=== PATIENT | male | born 1965 | race Caucasian/White ===

== ENCOUNTER 2020-01-02 10:28 | Outpatient (REF) | payer OTHER, SELFPAY ==
[2020-01-02 12:18] LABS: Blood Urea Nitrogen 23 mg/dL (9-16); Estimated Glomerular Filt Rate > 60
[2020-01-02 12:43] LABS: PSA,Total (Free>4and<10) 5.71 ng/mL (0.00-4.00)
[2020-01-05 13:16] LABS: Free Prostate Spec Ag 0.3 ng/mL; Percent Free Prostate Spec Ag 6 % (calc) (>25); Prostate Specific Ag Total 5.2 ng/mL (< OR = 4.0)
== END 2020-01-02 10:29 | disposition home or self-care (01) ==
LOC: HO.LAB 10:28
PROVIDERS: PCP Physician Assistant; Visit Provider Urology
DX: C61 Malignant neoplasm of prostate (principal)
CPT/HCPCS: 82565; 84153; 84520

== ENCOUNTER 2020-01-23 13:00 | Outpatient (RCR) | payer OTHER, SELFPAY ==
--- NOTE | 2020-03-01 11:47 | MHC.PT.DC ---
[facility] [place] [facility] [place] [facility] [address] Fatoumata Nunes [address] [phone] F: [phone] F: [phone] F: [phone] F: [phone] Physical Therapy Discharge Report Diagnosis: Adhesive capsulitis of R shoulder Date of Surgery: NA Date of Evaluation: 12/01/19 Date of Discharge: 03/01/20 Treatments to Date: 6 Cancellations to Date: 0 No Shows to Date: 0 Discharge Status: Patient Elected to Stop Discharge Summary: 03/01/20- Pt was suppose to return to therapy after MD follow up on 02/11 however pt did not call back to make any appointments. Pt d/c from therapy. Electronically signed by: Margarita Sifuentes DPT Please sign and return to therapist. Thank you for your referral.
== END 2020-03-01 11:46 | disposition other institution (70) ==
LOC: HO.PT 13:00
PROVIDERS: Visit Provider Orthopaedic Surgery
DX: M75.01 Adhesive capsulitis of right shoulder (principal)
CPT/HCPCS: 97110; 97140

== ENCOUNTER 2020-04-27 10:31 | Outpatient (REF) | payer OTHER, SELFPAY ==
[2020-04-27 14:38] LABS: PSA,Total (Free>4and<10) 9.45 ng/mL (0.00-4.00)
[2020-04-28 11:36] LABS: Free Prostate Spec Ag 0.3 ng/mL; Percent Free Prostate Spec Ag 4 % (calc) (>25); Prostate Specific Ag Total 7.6 ng/mL (< OR = 4.0)
== END 2020-04-27 10:32 | disposition home or self-care (01) ==
LOC: HO.LAB 10:31
PROVIDERS: PCP Physician Assistant; Referring Provider Urology; Visit Provider Psychiatry & Neurology Neurology
DX: R06.83 Snoring (principal); G47.10 Hypersomnia, unspecified; G47.00 Insomnia, unspecified; N40.1 Benign prostatic hyperplasia with lower urinary tract symptoms; N13.8 Other obstructive and reflux uropathy; C61 Malignant neoplasm of prostate; R97.20 Elevated prostate specific antigen [PSA]; I77.1 Stricture of artery; N52.1 Erectile dysfunction due to diseases classified elsewhere; Z91.09 Other allergy status, other than to drugs and biological substances; Z79.899 Other long term (current) drug therapy
CPT/HCPCS: 36415; 84153; 84154

== ENCOUNTER → 2020-05-07 11:39 | Outpatient (BNVA) | payer OTHER, SELFPAY | PROVIDERS: PCP Physician Assistant; Visit Provider Urology ==

== ENCOUNTER 2020-05-13 11:56 | Outpatient (REF) | payer OTHER, SELFPAY ==
[2020-05-13 11:48] VITALS: BMI 25.8
[2020-05-13 11:52] VITALS: BMI 25.8
[2020-05-13 11:54] VITALS: BP 122/84; PULSE 83; RESP 16; TEMP 36.5; O2SAT 97
--- NOTE | 2020-05-13 12:28 | PM.OP ---
Brief Operative Note Date of Service: 05/13/20 Pre-op diagnosis: prostate cancer Post-op diagnosis: same Procedure: TRUS guided - measure - prostate nerve block - 12 core biopsy Surgeon: Pierre Nayak MD Anesthesia: local Estimated blood loss (mL): 0 Pathology: other (12 cores) Condition: stable Disposition: same day
[2020-05-13 12:29] VITALS: BP 132/84; PULSE 83; RESP 16; O2SAT 99
--- NOTE | 2020-05-13 12:29 | W.PM.OPN ---
Operative Note Operative Note Date of Service: 05/13/20 Narrative: Preoperative diagnosis: prostate cancer Postoperative diagnosis: prostate cancer Procedure: 1. transrectal ultrasound measurement of prostate 2. transrectal ultrasound-guided pudendal nerve block 3. transrectal ultrasound-guided prostate biopsy 12 core Surgeon: Dr. Pierre Nayak Anesthetic: Local Indications for procedure: Prostate Cancer Procedure: After informed consent was verified, the patient was brought into the procedure area and lay left-hand side down on the table. Patient identity confirmed. Perioperative antibiotics confirmed. Gel was placed per rectum Ultrasound probe was placed per rectum The prostate was measured in 3 dimensions Total volume equals 30 gm There were no cystic structures and no calcifications noted and the prostate was homogeneous in nature A ultrasound-guided pudendal nerve block was performed using 10 cc of 1% lidocaine. 8 cc was placed at the base and 2 cc of the apex. A 12 core biopsy was performed with 6 cores each side. Two cores were taken at the apex, mid and base. Cores were spaced between lateral and medial. He tolerated the procedure well. Was able to ambulate to bathroom after 5 minutes. Printed instructions regarding antibiotic use and common side effects such as low-grade temperature and bleeding were given.
== END 2020-05-13 11:57 | disposition home or self-care (01) ==
LOC: HO.MS 11:56
PROVIDERS: PCP Physician Assistant; Visit Provider Urology
PROC: (CPT 55700; principal; 2020-05-13 12:00)
DX: C61 Malignant neoplasm of prostate (principal)
CPT/HCPCS: 55700; 76942; 88305; 88344

== ENCOUNTER → 2020-05-21 08:40 | Outpatient (BNVA) | payer OTHER, SELFPAY | PROVIDERS: PCP Physician Assistant; Visit Provider Urology ==

== ENCOUNTER → 2020-05-25 09:05 | Outpatient (REF) | payer OTHER, SELFPAY | LOC: HO.SL 09:05 | PROVIDERS: PCP Physician Assistant; Visit Provider Psychiatry & Neurology Neurology | DX: G47.10 Hypersomnia, unspecified (principal); I10 Essential (primary) hypertension; R06.83 Snoring | CPT/HCPCS: 95806 ==

== ENCOUNTER → 2020-05-27 08:26 | Outpatient (BNVA) | payer SELFPAY | PROVIDERS: PCP Physician Assistant; Visit Provider Internal Medicine | DX: Z02.79 Encounter for issue of other medical certificate (principal) ==

== ENCOUNTER → 2020-06-04 09:23 | Outpatient (BNVA) | payer OTHER, SELFPAY | PROVIDERS: PCP Physician Assistant; Visit Provider Orthopaedic Surgery ==

== ENCOUNTER 2020-08-13 10:13 | Outpatient (REF) | payer OTHER, SELFPAY ==
[2020-08-13 12:08] LABS: PSA,Total (Free>4and<10) 6.82 ng/mL (0.00-4.00)
[2020-08-16 11:47] LABS: Free Prostate Spec Ag 0.3 ng/mL; Percent Free Prostate Spec Ag 5 % (calc) (>25); Prostate Specific Ag Total 6.2 ng/mL (< OR = 4.0)
== END 2020-08-13 10:14 | disposition home or self-care (01) ==
LOC: HO.LAB 10:13
PROVIDERS: PCP Physician Assistant; Visit Provider Urology
DX: Z12.5 Encounter for screening for malignant neoplasm of prostate (principal); C61 Malignant neoplasm of prostate; N13.8 Other obstructive and reflux uropathy; N40.1 Benign prostatic hyperplasia with lower urinary tract symptoms
CPT/HCPCS: 36415; 84153; 84154

== ENCOUNTER → 2020-08-19 08:43 | Outpatient (BNVA) | payer OTHER, SELFPAY | PROVIDERS: PCP Physician Assistant; Visit Provider Urology ==

== ENCOUNTER → 2020-08-24 09:12 | Outpatient (BNVA) | payer OTHER, SELFPAY | PROVIDERS: PCP Physician Assistant; Visit Provider Psychiatry & Neurology Neurology ==

== ENCOUNTER 2020-11-11 05:58 | Outpatient (REF) | payer OTHER, SELFPAY ==
[2020-11-11 09:12] LABS: PSA,Total (Free>4and<10) 6.23 ng/mL (0.00-4.00)
[2020-11-14 10:22] LABS: Free Prostate Spec Ag 0.3 ng/mL; Percent Free Prostate Spec Ag 5 % (calc) (>25); Prostate Specific Ag Total 6.4 ng/mL (< OR = 4.0)
== END 2020-11-11 05:59 | disposition home or self-care (01) ==
LOC: HO.LAB 05:58
PROVIDERS: PCP Physician Assistant; Visit Provider Urology
DX: N40.1 Benign prostatic hyperplasia with lower urinary tract symptoms (principal); N13.8 Other obstructive and reflux uropathy
CPT/HCPCS: 36415; 84153; 84154

== ENCOUNTER → 2020-11-18 08:52 | Outpatient (BNVA) | payer OTHER, SELFPAY | PROVIDERS: PCP Physician Assistant; Visit Provider Urology ==

== ENCOUNTER → 2020-12-10 08:54 | Outpatient (BNVA) | payer OTHER, SELFPAY | PROVIDERS: PCP Physician Assistant; Referring Provider Physician Assistant; Visit Provider Surgery ==

== ENCOUNTER 2021-03-14 08:45 | Outpatient (REF) | payer OTHER, SELFPAY ==
[2021-03-14 10:03] LABS: PSA,Total (Free>4and<10) 6.38 ng/mL (0.00-4.00)
[2021-03-15 13:31] LABS: Free Prostate Spec Ag 0.4 ng/mL; Percent Free Prostate Spec Ag 7 % (calc) (>25); Prostate Specific Ag Total 5.4 ng/mL (< OR = 4.0)
== END 2021-03-14 08:46 | disposition home or self-care (01) ==
LOC: HO.LAB 08:45
PROVIDERS: PCP Physician Assistant; Visit Provider Urology
DX: C61 Malignant neoplasm of prostate (principal)
CPT/HCPCS: 36415; 84153; 84154

== ENCOUNTER → 2021-03-18 09:01 | Outpatient (BNVA) | payer OTHER, SELFPAY | PROVIDERS: PCP Physician Assistant; Visit Provider Urology ==

== ENCOUNTER 2021-03-23 05:58 | Day surgery (SDC) | payer OTHER, SELFPAY ==
[2021-03-17 12:05] VITALS: BMI 25.8
--- NOTE | 2021-03-22 10:07 | HO.ANESPROP2 ---
Documented by User: Cydney White NP 03/22/21 10:09 HPI - Anesthesia Eval Consult details Narrative: 55yo M for Right Hernia Repair Inguinal PMFSH Active Problems Active Problems: All Active Problems (Updated 03/18/21 @ 10:01 by Pierre Nayak MD) Herpes simplex (Acute) Prostate cancer (Acute) JULIETH (obstructive sleep apnea) (Acute) HTN (hypertension) (Acute) Hyperlipidemia (Acute) Snoring (Acute) Hypersomnia (Acute) Insomnia (Acute) Adhesive capsulitis of right shoulder (Acute) Inguinal hernia (Acute) Recurrent tonsillitis (Acute) Recurrent otitis media of both ears (Acute) Pain, dental (Acute) Past Medical History Medical History Anxiety COVID-19 vaccine series completed Elevated cholesterol Elevated PSA Erectile dysfunction due to arterial insufficiency HTN (hypertension) Prostate cancer Sleep apnea Family History Family History Father Prostate cancer Paternal Uncle Prostate cancer Surgical History Surgical History H/O colonoscopy History of esophagogastroduodenoscopy (EGD) History of excision of mass History of hip replacement Hx of prostate biopsy Social History Social History Are you a primary childbirth and infant care teacher to a significant other at home: No Patient Tobacco Use Status: Never used Tobacco Use of substances other than those prescribed or required for medical reasons: No Have you been hit, kicked, punched, or otherwise hurt by someone within the past year? 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 Allergies Allergy/AdvReac Type Severity Reaction Status Date / Time allergy shots Allergy Intermediate rash Uncoded 03/18/21 09:02 SEASONAL ALLERGIES Allergy Mild RUNNY NOSE Uncoded 03/18/21 09:02 Home Medications Medication Instructions Recorded Confirmed Last Taken Type omeprazole 20 mg capsule,delayed 20 mg PO DAILY 12/10/20 03/17/21 Unknown History release multivitamin 1 tab PO DAILY 03/17/21 03/17/21 Unknown History tadalafil 10 mg tablet 10 mg PO DAILY PRN 03/18/21 Unknown History Exam Exam Date and Time: March 22, 2021 1007 Height,Weight and Vital Signs: Height 5 ft 10 in Weight 81.647 kg Assessment and Plan Assessment Anesthesia Assessment: Chart Reviewed Documented by User: Adrian Baugh 03/23/21 09:43 PMFSH Past Medical History Medical History Anxiety COVID-19 vaccine series completed Elevated cholesterol Elevated PSA Erectile dysfunction due to arterial insufficiency HTN (hypertension) Prostate cancer Sleep apnea Family History Family History Father Prostate cancer Paternal Uncle Prostate cancer Family history of problems with anesthesia: No Surgical History Surgical History H/O colonoscopy History of esophagogastroduodenoscopy (EGD) History of excision of mass History of hip replacement Hx of prostate biopsy History of Problems with Anesthesia: Yes (Ponv ) Social History Social History Are you a primary childbirth and infant care teacher to a significant other at home: No Patient Tobacco Use Status: Never used Tobacco Use of substances other than those prescribed or required for medical reasons: No Have you been hit, kicked, punched, or otherwise hurt by someone within the past year? 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 Allergies Allergy/AdvReac Type Severity Reaction Status Date / Time allergy shots Allergy Intermediate rash Uncoded 03/18/21 09:02 SEASONAL ALLERGIES Allergy Mild RUNNY NOSE Uncoded 03/18/21 09:02 Home Medications Medication Instructions Recorded Confirmed Last Taken Type omeprazole 20 mg capsule,delayed 20 mg PO DAILY 12/10/20 03/17/21 Unknown History release multivitamin 1 tab PO DAILY 03/17/21 03/17/21 Unknown History tadalafil 10 mg tablet 10 mg PO DAILY PRN 03/18/21 Unknown History Exam Airway Mallampati Class: I TM Dist: >3cm Neck ROM: Full Loose/Missing/Broken Teeth: Yes (Chipped , bridge , missing ) Heart: rrr Lungs: bl breath sounds Assessment and Plan Final Anesthetic Review Family History of Problems with Anesthesia: No History of Problems with Anesthesia: Yes (Ponv ) NPO: Yes ASA Class: II Final Preanesthetic Review: Meds/Allgs Chart Reviewed and Anes Risks/Benef Reviewed Patient Risk: Intermediate Procedure Risk: Intermediate Anesthetic Plan Anesthetic Plan: GA Disposition: Standard PACU
[2021-03-23] VITALS (8 sets, daily range): BP systolic 120–146; BP diastolic 74–91; PULSE 71–86; RESP 16; TEMP 36.3–36.9; O2SAT 95–99
[2021-03-23] MEDS: Lactated Ringers 1,000 ML 100 ML IVCONT (07:47)
--- NOTE | 2021-03-23 08:29 | P.OP_ITS ---
Operative Note Operative Note Date of Service: 03/23/21 Narrative: Preoperative diagnosis: Right inguinal hernia Postoperative diagnosis: Same Procedure: Repair of right inguinal hernia with mesh Surgeon: Te Lynch MD Supervisor Nut Processing: Salome Lake PA-C Anesthesia: General LMA Indications for procedure: 55-year-old male patient presenting with a mass in the right groin which increases in size with lifting and straining and reduces with light pressure. On examination patient is found to have a reducible indirect right inguinal hernia Operative findings: Indirect right inguinal hernia containing preperitoneal fat as well as a hernia sac Specimen: Lipoma of the cord and hernia sac right groin Estimated blood loss: 5 mL Complications: None Procedure details: Patient was brought to the OR and placed in a supine position. After administering general anesthesia the patient's abdomen was prepped with ChloraPrep and draped in a sterile fashion. A surgical time-out was called and the consent confirmed. Patient received preoperative antibiotics and Venodyne boots were in place. Local anesthesia consisting of 0.5% Sensorcaine was then infiltrated over the right inguinal ligament. Incision was then made with a scalpel carried out through subcutaneous tissue, past Michelle's fascia, and up to the external oblique aponeurosis. Additional local was infiltrated below the external oblique aponeurosis. This was then incised with a scalpel wide with the Metzenbaum scissors. The spermatic cord was then dissected free from the surrounding inguinal canal. This was then retracted using a Jasper drain. The floor of the inguinal canal was found to be intact without direct hernia. A large lipoma was noted within the rheumatic cord. Fibers of the cremasteric muscle were then and the lipoma dissected down to the internal ring. This was then ligated with 3-0 Polysorb suture and divided. This was sent as a specimen labeled lipoma of the cord. A hernia sac was also identified adjacent to the lipoma. This was also dissected down to the internal ring, ligated with a 0 Polysorb suture in a pursestring fashion. The sac was then excised and sent to pathology as hernia sac right groin. A large internal ring was identified. This was then dissected into the preperitoneal space using an open Ray-Anthony sponge. A large PHS mesh was then obtained circular underlay deployed within the preperitoneal space. The overlay was then secured to the pubic tubercle, conjoined tendon, and shelving edge of the inguinal ligament using 0 Polysorb sutures. A slit was made in the mesh and the mesh wrapped around the spermatic cord at the internal ring. This was then secured to the shelving edge of the inguinal ligament using the 0 Polysorb suture. The remaining mesh was placed below the external oblique aponeurosis. The wounds were then irrigated with saline solution and suctioned dry. Wounds were checked for hemostasis. External oblique aponeurosis was then closed using a running 2 0 Polysorb suture. Michelle's fascia and dermis were then reapproximated using interrupted 3-0 Polysorb sutures. Skin was closed using a running subcuticular 4-0 Polysorb suture. Steri-Strips 4 x 4 gauze and Tegaderm were then applied. The patient tolerated the procedure well. Sponge, instrument, and needle counts were reported as correct. Patient was transferred to PACU in stable condition.
--- NOTE | 2021-03-23 08:35 | MHC.SHP ---
Pre-Procedural Eval Section A Date of Service: 03/23/21 The patient is an INPATIENT: No Changes since office visit: Yes Patient answered all questions; No Cold of Flu in the past 2 weeks, No New Medical Problems and No Changes in Medication The History & Physical has been completed within 30 days and I have reviewed it.: Yes Section B Chief Complaint: Right Inguinal hernia Allergies: Allergies Allergy/AdvReac Type Severity Reaction Status Date / Time allergy shots Allergy Intermediate rash Uncoded 03/18/21 09:02 SEASONAL ALLERGIES Allergy Mild RUNNY NOSE Uncoded 03/18/21 09:02 Plan Diagnosis/Plan: Unchanged I have reviewed the history and physical and performed a pertinent physical examination on my patient. No changes have occurred unless specified.
[2021-03-23] MEDS: oxyCODONE HCl Immed Release 5 MG TABLET PO (09:00)
[2021-03-23] MEDS: Acetaminophen 325 MG TABLET 650 MG PO (09:01)
== END 2021-03-23 10:00 | disposition home or self-care (01) ==
PROVIDERS: PCP Physician Assistant; Visit Provider Surgery
PROC: (CPT 49505; principal; 2021-03-23 07:30)
DX: K40.90 Unilateral inguinal hernia, without obstruction or gangrene, not specified as recurrent (principal); D17.6 Benign lipomatous neoplasm of spermatic cord; C61 Malignant neoplasm of prostate; I10 Essential (primary) hypertension; G47.33 Obstructive sleep apnea (adult) (pediatric); E78.5 Hyperlipidemia, unspecified; Z79.899 Other long term (current) drug therapy
CPT/HCPCS: 49505; 88302; 88304; C1781; J0690; J1100; J1885; J2250; J2405; J3010

== ENCOUNTER → 2021-03-31 15:30 | Outpatient (BNVA) | payer OTHER, SELFPAY | PROVIDERS: PCP Physician Assistant; Visit Provider Surgery ==

== ENCOUNTER → 2021-05-05 15:01 | Outpatient (BNVA) | payer OTHER, SELFPAY | PROVIDERS: PCP Physician Assistant; Visit Provider Surgery ==

== ENCOUNTER 2021-06-17 07:10 | Outpatient (REF) | payer OTHER, SELFPAY ==
--- NOTE | ~2021-06-17 | XR_ITS ---
EXAMINATION: XR SHOULDER, RIGHT CLINICAL INFORMATION: Pain COMPARISON: Previous x-ray October 2019 TECHNIQUE: Three views of the right shoulder. FINDINGS: Bone alignment is normal. No fracture or dislocation is seen. There is mild arthritis at the acromioclavicular and glenohumeral joints similar to previous exam. Soft tissues are unremarkable. XR/XR shoulder RT min 2V IMPRESSION: Mild arthritis.
== END 2021-06-17 07:11 | disposition home or self-care (01) ==
LOC: HO.HOSX 07:10
PROVIDERS: Visit Provider Physician Assistant
DX: M75.01 Adhesive capsulitis of right shoulder (principal)
CPT/HCPCS: 20610; 73030; J1040

== ENCOUNTER 2021-06-24 07:56 | Outpatient (REF) | payer OTHER, SELFPAY ==
--- NOTE | ~2021-06-24 | MR_ITS ---
EXAMINATION: MR SHOULDER WITHOUT CONTRAST, RIGHT CLINICAL INFORMATION: Pain, decreased range of motion, adhesive capsulitis COMPARISON: None TECHNIQUE: MRI of the shoulder without contrast was performed on a high-field scanner. FINDINGS: ROTATOR CUFF: Mild supraspinatus tendinosis. No focal tear is seen. Infraspinatus, teres minor is intact. Mild subscapularis tendinosis. No muscle atrophy or fatty infiltration. BICEPS: Intact CORACOACROMIAL ARCH: The undersurface of the acromion is curved with no subacromial spur. Mild acromioclavicular arthritis. LABRUM/CAPSULE: T2 signal changes in the superior labrum suggest degeneration, with possible mild free edge fraying posteriorly. Focal T2 bright signal at the base of the posteroinferior labrum, from possible small tear. No discrete tear is otherwise seen. Mild thickening of the inferior capsule, which could be related to lack of distention versus capsulitis. GLENOHUMERAL JOINT/MARROW: Mild glenohumeral joint arthritis. There is marginal osteophytes, foci of cartilage thinning and irregularity. Small effusion. Possible mild synovitis.. MR/MR shoulder RT wo con IMPRESSION: 1. Mild supraspinatus and subscapularis tendinosis. No focal rotator cuff tear is seen. 2. Superior labral degeneration with possible mild fraying posteriorly. Question small tear in the posteroinferior labrum. 3. Mild glenohumeral joint arthritis. Small effusion. 4. Mild acromioclavicular arthritis. 5. Inferior capsule findings could be related to lack of distention versus capsulitis.
== END 2021-06-24 07:57 | disposition home or self-care (01) ==
LOC: HO.MRI 07:56
PROVIDERS: Visit Provider Physician Assistant
DX: M75.01 Adhesive capsulitis of right shoulder (principal); M75.101 Unspecified rotator cuff tear or rupture of right shoulder, not specified as traumatic
CPT/HCPCS: 73221

== ENCOUNTER 2021-07-12 06:01 | Outpatient (REF) | payer OTHER, SELFPAY ==
[2021-07-12 08:40] LABS: PSA,Total (Free>4and<10) 6.28 ng/mL (0.00-4.00)
[2021-07-14 11:46] LABS: Free Prostate Spec Ag 0.4 ng/mL; Percent Free Prostate Spec Ag 6 % (calc) (>25); Prostate Specific Ag Total 6.3 ng/mL (< OR = 4.0)
== END 2021-07-12 06:02 | disposition home or self-care (01) ==
LOC: HO.LAB 06:01
PROVIDERS: PCP Physician Assistant; Visit Provider Urology
DX: Z12.5 Encounter for screening for malignant neoplasm of prostate (principal); C61 Malignant neoplasm of prostate; N13.8 Other obstructive and reflux uropathy; N40.1 Benign prostatic hyperplasia with lower urinary tract symptoms
CPT/HCPCS: 36415; 84153; 84154

== ENCOUNTER → 2021-07-15 09:47 | Outpatient (BNVA) | payer OTHER, SELFPAY | PROVIDERS: PCP Physician Assistant; Visit Provider Urology | DX: Z13.89 Encounter for screening for other disorder (principal) ==

== ENCOUNTER → 2021-07-22 09:40 | Outpatient (BNVA) | payer OTHER, SELFPAY | PROVIDERS: PCP Physician Assistant; Visit Provider Physician Assistant | DX: M75.01 Adhesive capsulitis of right shoulder (principal) ==

== ENCOUNTER 2022-03-09 10:01 | Outpatient (REF) | payer OTHER, SELFPAY ==
[2022-03-09 11:04] LABS: Blood Urea Nitrogen 18 mg/dL (9-16); Estimated Glomerular Filt Rate > 60
[2022-03-09 11:29] LABS: PSA,Total (Free>4and<10) 6.31 ng/mL (0.00-4.00)
[2022-03-10 11:24] LABS: Free Prostate Spec Ag 0.3 ng/mL; Percent Free Prostate Spec Ag 6 % (calc) (>25); Prostate Specific Ag Total 5.3 ng/mL (< OR = 4.0)
== END 2022-03-09 10:02 | disposition home or self-care (01) ==
LOC: HO.LAB 10:01
PROVIDERS: PCP Physician Assistant; Visit Provider Urology
DX: Z12.5 Encounter for screening for malignant neoplasm of prostate (principal); C61 Malignant neoplasm of prostate
CPT/HCPCS: 36415; 82565; 84153; 84154; 84520

== ENCOUNTER → 2022-03-15 09:29 | Outpatient (BNVA) | payer OTHER, SELFPAY | PROVIDERS: PCP Physician Assistant; Visit Provider Urology | DX: Z13.89 Encounter for screening for other disorder (principal) ==

== ENCOUNTER → 2022-05-26 11:12 | Outpatient (BNVA) | payer SELFPAY | PROVIDERS: PCP Physician Assistant; Visit Provider Internal Medicine | DX: Z02.79 Encounter for issue of other medical certificate (principal) ==

== ENCOUNTER 2022-07-07 05:56 | Outpatient (REF) | payer OTHER, SELFPAY ==
[2022-07-07 08:19] LABS: PSA,Total (Free>4and<10) 4.91 ng/mL (0.00-4.00)
[2022-07-10 12:04] LABS: Free Prostate Spec Ag 0.3 ng/mL; Percent Free Prostate Spec Ag 7 % (calc) (>25); Prostate Specific Ag Total 4.5 ng/mL (< OR = 4.0)
== END 2022-07-07 05:57 | disposition home or self-care (01) ==
LOC: HO.LAB 05:56
PROVIDERS: PCP Physician Assistant; Visit Provider Urology
DX: Z12.5 Encounter for screening for malignant neoplasm of prostate (principal); C61 Malignant neoplasm of prostate
CPT/HCPCS: 36415; 84153; 84154

== ENCOUNTER → 2022-07-13 09:42 | Outpatient (BNVA) | payer OTHER, SELFPAY | PROVIDERS: PCP Physician Assistant; Visit Provider Urology ==

== ENCOUNTER 2022-08-07 06:06 | Outpatient (REF) | payer OTHER, SELFPAY ==
[2022-08-07 07:31] LABS: Hematocrit 42.6 % (42.0-52.0); Hemoglobin 14.4 g/dl (14.0-18.0); Mean Corpuscular HGB Conc 33.8 g/dl (31.0-36.0); Mean Corpuscular Hemoglobin 28.7 pg (27.0-33.0); Mean Platelet Volume 9.5 fL (9.4-12.4); Platelet Count 203 X10*3/uL (160-400); Red Blood Count 5.01 X10*6/uL (4.60-5.80); Red Cell Distribution Width 12.1 % (11.0-16.0); White Blood Count 5.2 X10*3/uL (4.8-10.8)
[2022-08-07 08:13] LABS: Alanine Aminotransferase 34 U/L (0-40); Albumin Level 4.1 g/dL (3.5-5.0); Alkaline Phosphatase 65 U/L (39-117); Anion Gap 13 (12-20); Aspartate Amino Transferase 25 U/L (5-37); Bilirubin Total 0.5 mg/dL (0.0-1.0); Blood Urea Nitrogen 29 mg/dL (9-16); Calcium 8.8 mg/dL (8.4-10.2); Carbon Dioxide 24 mmol/L (22-29); Chloride 108 mmol/L (96-108); Cholesterol 259 mg/dL; Estimated Glomerular Filt Rate > 60; Glucose Fasting 100 mg/dL (60-99); HDL Cholesterol 43 mg/dL; LDL Cholesterol Calculated 149 mg/dl; Sodium 141 mmol/L (135-145); Total Protein 7.2 g/dL (6.5-8.0); Triglycerides 339 mg/dL
[2022-08-07 09:11] LABS: Creatinine Urine 213.65 mg/dL; Microalbum/Creatinine Ratio Ur 4.6 ug/mg cr
== END 2022-08-07 06:07 | disposition home or self-care (01) ==
LOC: HO.LAB 06:06
PROVIDERS: PCP Physician Assistant; Visit Provider Physician Assistant
DX: I10 Essential (primary) hypertension (principal)
CPT/HCPCS: 36415; 80053; 80061; 82043; 85027

== ENCOUNTER 2022-11-14 06:00 | Outpatient (REF) | payer OTHER, SELFPAY | END 2022-11-14 06:01 | disposition home or self-care (01) | LOC: HO.LAB 06:00 | PROVIDERS: PCP Physician Assistant; Visit Provider Urology | DX: Z12.5 Encounter for screening for malignant neoplasm of prostate (principal); C61 Malignant neoplasm of prostate | CPT/HCPCS: 36415; 84153 ==

== ENCOUNTER 2022-11-16 09:37 | Outpatient (AMB) | payer OTHER, SELFPAY ==
--- NOTE | 2022-11-16 09:38 | MHC.OFFVIS ---
Intake Intake Visit Reasons: 4m/PSA(set) Intake Note: Patient is present for Telephone Urology Med: finasteride, tadalafil, sildenafil Antibiotic Allergy: none Blood Thinner: aspirin Pharmacy: [facility] Allergies allergy shots Allergy (Intermediate, Uncoded 11/16/22 09:38) rash SEASONAL ALLERGIES Allergy (Mild, Uncoded 11/16/22 09:38) RUNNY NOSE Medication List - Last Reconciled 11/16/22 by Pierre Nayak MD acetaminophen ER 650 mg PO Q12H 14 days finasteride 5 mg PO DAILY 90 days losartan 50 mg PO DAILY meloxicam 15 mg PO DAILY 30 days multivitamin 1 tab PO DAILY omeprazole 20 mg PO DAILY sertraline 50 mg PO DAILY sildenafil 100 mg PO DAILY PRN 30 days sodium fluoride-pot nitrate 1.1-5 % PO tadalafil 10 mg PO DAILY PRN 30 days valacyclovir 500 mg PO Q12H 7 days HPI HPI Comments History of Present Illness Details Norberto is a pleasant male. He is a patient of Dr. Winchester. He is seen for the following urologic conditions - prostate cancer Telemedicine Evaluation 15 min Consultation [facility] Scotty Video attempted Continues with PSA check every 4 months Remains on finasteride PSA with low free percentage Prior MRI stable Came off finasteride for 4 months. PSA jumped to 13.3 Recommend repeat targeted biopsy Prostate cancer: November 2018 [place] 3 + 3 3 cores, repeat May 2020 [place] 3 + 3 Prostate cancer was diagnosed November [address] Dr Nayak . Diagnosis was reached by needle biopsy, for elevated PSA, PSA at diagnosis 5.9, size at TRUS 35gm. Last biopsy May 2020 Three cores positive none greater than 50% Continue active surveillance Initial biopsy November 201806/14 cores All Gl 3+3 5%,5%,10%,20% - . TNM Classification of Malignant Tumours (TNM) T1c. The D'Aysha (NCCN) risk category is Low Risk (PSA< 10, Gl < 7, T1c) - Group 1 Repeat biopsy May 2020 Histologic type: Adenocarcinoma, acinar type Histologic grade: - [place] score: 3+3=6 Tumor quantitation: Number cores positive: 3 - RBL 5%, RBM 10%, RAL 40% - Total number of cores: 12 [facility] [employer] performed - 05/23 - Polaris risk score 4.5 - disease specific mortality 10 year 2.9% - Active surveillance recommended. Initial therapy included Primary treatment - Deferred Therapy (active surveillance) 11/21 Recent labs included 03/24 3.0 08/22 8.0 not on finasteride 09/21 5.1, 12/22 5.7, 04/25 9.5, 08/23 6.8, 11/23 6.4, 03/26 5.4, 07/24 6.3 finasteride every day, 03/27 5.3 6%, 07/25 4.5 7% Imaging - 12/22 MRI at [facility]. Right mid posterior lateral transition zone. PiRADs 3. MICK negative 9mm - 10/24 MRI left lateral 6 mm PI-RADS 3 Treatment plan continue surveillance [facility] Medical History Anxiety COVID-19 vaccine series completed Prostate cancer Sleep apnea Elevated cholesterol HTN (hypertension) Inguinal hernia Elevated PSA Erectile dysfunction due to arterial insufficiency Herpes simplex Surgical History Hx of prostate biopsy History of esophagogastroduodenoscopy (EGD) H/O colonoscopy History of excision of mass History of hip replacement Family History Father Prostate cancer Heart attack, Onset Age: 65 Paternal Uncle Prostate cancer Social History Housing: House Are you a primary healthcare liaison to a significant other at home: No Alcohol intake: current Alcohol intake frequency: a few times a month Alcohol type: hard liquor Patient Tobacco Use Status: Never used Tobacco e-Cigarette/Vaping Use: Never Used Second Hand Smoke Exposure: No service: No Current occupational status: employed 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 Current occupational exposures/hazards: No Cognitive needs: No Hearing needs: No Vision needs: No Review of Systems Const All systems reviewed & are unremarkable except as noted in HPI and below Reports no additional complaints Resp Reports no additional complaints GI Reports no additional complaints Reports as per HPI Musc Reports no additional complaints Physical Exam Telemedicine evaluation Appropriate responses Regular breathing rate and rhythm HEENT Head: Yes normal to inspection Ears: hearing grossly normal bilaterally Eyes General: appearance normal, both eyes and all related structures Neck Neck: Yes normal visual inspection Chest Chest palpation & inspection: normal inspection of the chest Resp Effort & Inspection: normal respiratory effort and able to speak in complete sentences Assessment & Plan Assessment & Plan (1) Prostate cancer: Comment: November 2018 [place] 3 + 3 low-grade, low volume disease Active surveillance repeat biopsy 04/26 Code(s): C61 - Malignant neoplasm of prostate Plan Risks and benefits regarding trans rectal ultrasound with prostate biopsy were discussed. Options of continued surveillance, no treatment and biopsy were offered. The risks include but are not limited to, urinary tract infection, sepsis, difficulty urinating, bleeding into the rectum or bladder that requires intervention and transfusion,and failure to diagnose prostate cancer. The patient understands the options and the risks involved. They wish to proceed. Printed information was provided to ensure he remains off anticoagulation for the appropriate length of time. He may require cardiology or PCP clearance. An antibiotic will be administered prior to, and following the procedure Patient Instructions: Imaging studies, laboratory and physical exam results were discussed and reviewed in detail. No major barriers to patient understanding were identified. An opportunity to ask questions regarding the treatment plan was provided. All questions were answered. The patient expressed understanding and agreement with the above treatment plan. The patient is aware they should contact our office by phone for worsening of their current condition or the appearance of new urologic symptoms. Compliance is encouraged with any medications and followup testing that is ordered. It is a privilege to participate in the urologic care of your patient. If you have any questions or concerns regarding treatment for the above conditions, or other urologic issues, please do not hesitate to contact me. The office telephone contact is [phone]. This note is constructed using voice recognition software. While every effort has been made to ensure accuracy senior medical transcriptionist errors may have been included. Yours sincerely, Dr Pierre Nayak MD, [facility] - Urology Providers of Expert, Compassionate Care for the Genitourinary System Telehealth Telehealth Location of provider rendering services: practice address Location of patient: address on file Patient Identification confirmed using: Name, : Yes Telehealth method: video Patient verbally consented to treatment: Yes Patient verbally consented to billing insurance company: Yes Patient informed of any privacy concerns related to visit: Yes Coding Level of Care Code Tele Est Pt Level 4 (11259) Diagnoses Prostate cancer C61
== END 2022-11-16 10:13 | disposition home or self-care (01) ==
LOC: HO.HUSH 09:37
PROVIDERS: PCP Physician Assistant; Visit Provider Urology
DX: C61 Malignant neoplasm of prostate (principal)
CPT/HCPCS: 99214

== ENCOUNTER → 2022-11-16 09:37 | Outpatient (BNVA) | payer OTHER, SELFPAY | PROVIDERS: PCP Physician Assistant; Visit Provider Urology ==

== ENCOUNTER 2022-12-08 08:56 | Outpatient (AMB) | payer OTHER, SELFPAY ==
[2022-12-08 08:57] VITALS: BP 136/99; PULSE 86; O2SAT 97; BMI 27.3
--- NOTE | 2022-12-08 08:57 | MHC.PC.OV ---
Vital Signs 12/08/22 08:57 Height 5 ft 10 in Weight 190 lb BMI 27.3 BP 136/99 H Blood Pressure Location Lt brachial Position Sitting Pulse 86 Pulse Source Pulse Oximeter Pulse Oximetry (%) 97 Oxygen Delivery Method Room Air Intake Visit Reasons: Pre-Op Targeted prostate biopsy 12/18/22 Cytologist Required: No Port Purser: Not Required per policy Accompanied by: Self / Same As Patient Allergies allergy shots Allergy (Intermediate, Uncoded 12/08/22 08:58) rash SEASONAL ALLERGIES Allergy (Mild, Uncoded 12/08/22 08:58) RUNNY NOSE Medication List - Last Reconciled 12/08/22 by Pascual Aguilar MD acetaminophen ER 650 mg PO Q12H 14 days finasteride 5 mg PO DAILY 90 days losartan 50 mg PO DAILY meloxicam 15 mg PO DAILY 30 days multivitamin 1 tab PO DAILY omeprazole 20 mg PO DAILY sertraline 50 mg PO DAILY sildenafil 100 mg PO DAILY PRN 30 days sodium fluoride-pot nitrate 1.1-5 % PO tadalafil 10 mg PO DAILY PRN 30 days valacyclovir 500 mg PO Q12H 7 days Tobacco use date assessed: 08/10/22 Dental Screening Dental Screen Date: 12/08/22 Did you have a dental visit in the last 12 months?: Yes Did you have a dental problem in the last 6 months where you did not have access to dental care?: No Was dental information given to patient?: Patient has dentist HPI Pre-Op Targeted prostate biopsy 12/18/22 HPI Details having a prostate biopsy; has controlled HTN and depression; no history of cad PFSH Medical History Anxiety COVID-19 vaccine series completed Prostate cancer Sleep apnea Elevated cholesterol HTN (hypertension) Inguinal hernia Elevated PSA Erectile dysfunction due to arterial insufficiency Herpes simplex Surgical History Hx of prostate biopsy History of esophagogastroduodenoscopy (EGD) H/O colonoscopy History of excision of mass History of hip replacement Family History Father Prostate cancer Heart attack, Onset Age: 65 Paternal Uncle Prostate cancer Social History Housing: House Are you a primary daycare provider to a significant other at home: No Alcohol intake: current Alcohol intake frequency: a few times a month Alcohol type: hard liquor Patient Tobacco Use Status: Never used Tobacco e-Cigarette/Vaping Use: Never Used Second Hand Smoke Exposure: No service: No Current occupational status: employed 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 1. Little interest or pleasure in doing things: not at all 2. Feeling down, depressed, or hopeless: not at all 3. Trouble falling or staying asleep, or sleeping too much: not at all 4. Feeling tired or having little energy: not at all 5. Poor appetite or overeating: not at all 6. Feeling bad about yourself - or that you are a failure or have let yourself or your family down: not at all 7. Trouble concentrating on things, such as reading the newspaper or watching television: not at all 8. Moving or speaking so slowly that other people could have noticed. Or the opposite - being so fidgety or restless that you have been moving around a lot more than usual: not at all 9. Thoughts that you would be better off or of hurting yourself in some way: not at all Total score: 0 29254 - PHQ-9 Billing: Yes Source: Developed by Drs. Junior Breen, Kisha Valverde, Herbie Vela and colleagues, with an educational deloris from [employer]. Thrive Questionnaire Date Thrive assessed: 08/10/22 AUDIT C Alcohol Use Questionnaire (AUDIT-C) 1. How often do you have a drink containing alcohol?: 2-3 times a week 2. How many drinks containing alcohol do you have on a typical day when you are drinking?: 3 or 4 3. How often do you have six or more drinks on one occasion?: Never Total Score: 4 SABAS-7 AMB Questionnaire SABAS-7 Date SABAS - 7 assessed: 08/10/22 (Pt is on anti-anxirty medication ) Source: Developed by Drs. Junior Breen, Kisha Valverde, Herbie Vela and colleagues, with an educational deloris from [employer]. Review of Systems Const Denies chills, Denies fatigue, Denies headache(s) and Denies weight loss Eyes Denies change in vision, Denies diplopia and Denies eye pain ENT Denies vertigo, Denies dizziness, Denies headache(s) and Denies nasal discharge Card Denies chest pain, Denies rapid heart rate and Denies dyspnea on exertion Resp Denies chest congestion, Denies cough, Denies pain with cough and Denies dyspnea on exertion GI Denies abdominal pain, Denies hematochezia and Denies change in bowel habits Musc Denies myalgias, Denies arthralgias and Denies joint swelling Skin/Breast Denies lesions and Denies unusual bruising Neuro Denies vertigo, Denies dizziness, Denies headache(s) and Denies focal weakness Endo Denies fatigue Physical exam (Primary Care) Vital Signs: Last Vital Signs Pulse 86 12/08/22 08:57 BP 136/99 H 12/08/22 08:57 Pulse Ox 97 12/08/22 08:57 Oxygen Delivery Method Room Air 12/08/22 08:57 BMI result Body Mass Index 27.3 Tobacco/Smoking Status: Tobacco use Status Tobacco use date assessed 08/10/22 12/08/22 08:58 Patient Tobacco Use Status Never used Tobacco 12/08/22 08:58 e-Cigarette/Vaping Use Never Used 12/08/22 08:58 PHQ-9: PHQ-9 Score PHQ-9: Total score 0 12/08/22 09:02 Thrive Assessment: Date of Thrive Assessment Date Thrive assessed 08/10/22 12/08/22 08:58 Const General: cooperative, healthy appearing and no acute distress Orientation/consciousness: oriented to person, oriented to place and oriented to time [facility] Head: Yes normal to inspection, Yes normocephalic and Yes atraumatic Mouth: Normal oral and palatal mucosa present and tongue normal Throat: Yes posterior oropharynx normal and Yes uvula midline Eyes General: appearance normal, both eyes and all related structures Neck Neck: Yes normal visual inspection, Yes full ROM and Yes no lymphadenopathy Thyroid: Thyroid normal Carotids: normal carotid upstroke Chest Chest palpation & inspection: normal inspection of the chest Resp Effort & Inspection: normal respiratory effort and able to speak in complete sentences Auscultation: clear to auscultation bilaterally Cardio Jugular venous distension: no JVD Palpation: normal PMI Rate: regular rate Rhythm: regular rhythm Heart sounds: S1 normal heart sound present and S2 normal heart sound present GI Inspection: Yes normal to inspection Palpation (GI): Soft to palpation and No hepatosplenomegaly present Auscultation: normal bowel sounds General: Yes no CVA tenderness Back/Spine/Pelvis Back: no CVA tenderness Skin General skin exam: no rashes or lesions noted Neuro General: oriented to person, oriented to place and oriented to time Extrem General: Yes normal to inspection and Yes full ROM Assessment and Plan Assessment & Plan (1) Preop exam for internal medicine: Code(s): Z01.818 - Encounter for other preprocedural examination Plan: low risk fro cardiovascular complications; cleared for surgery (2) HTN (hypertension): Code(s): I10 - Essential (primary) hypertension Qualifiers: Hypertension type: primary hypertension Qualified Code(s): I10 - Essential (primary) hypertension Plan: stable;same rx (3) JULIETH (obstructive sleep apnea): Code(s): G47.33 - Obstructive sleep apnea (adult) (pediatric) Plan: stable; same rx (4) Depression: Code(s): F32.A - Depression, unspecified Plan: stable; same rx Coding Level of Care Code Est Pt Level 4 (30355) Diagnoses Preop exam for internal medicine Z01.818 Primary hypertension I10 Hypertension type: primary hypertension JULIETH (obstructive sleep apnea) G47.33 Depression F32.A
== END 2022-12-08 09:57 | disposition home or self-care (01) ==
PROVIDERS: PCP Physician Assistant; Visit Provider Internal Medicine
DX: Z01.818 Encounter for other preprocedural examination (principal); I10 Essential (primary) hypertension; G47.33 Obstructive sleep apnea (adult) (pediatric); F32.A Depression, unspecified
CPT/HCPCS: 99214

== ENCOUNTER 2022-12-18 10:44 | Day surgery (SDC) | payer OTHER, SELFPAY ==
[2022-12-14 08:41] VITALS: BMI 27.3
--- NOTE | 2022-12-14 12:18 | HO.ANESPROP2 ---
Documented by User: Cydney White NP 12/14/22 12:19 HPI - Anesthesia Eval Consult details Narrative: 57yo M for Targeted Prostate Needle Biopsy Medically cleared PMFSH Active Problems Active Problems: All Active Problems (Updated 12/08/22 @ 12:45 by Pascual Aguilar MD) Depression (Acute) Preop exam for internal medicine (Acute) Annual physical exam (Acute) Lumbar spine pain (Acute) Prostate cancer (Acute) JULIETH (obstructive sleep apnea) (Acute) HTN (hypertension) (Acute) Hyperlipidemia (Acute) Snoring (Acute) Insomnia (Acute) Adhesive capsulitis of right shoulder (Acute) Past Medical History Medical History Anxiety COVID-19 vaccine series completed Prostate cancer Sleep apnea Elevated cholesterol HTN (hypertension) Inguinal hernia Elevated PSA Erectile dysfunction due to arterial insufficiency Herpes simplex Family History Family History Father Prostate cancer Heart attack, Onset Age: 65 Paternal Uncle Prostate cancer Family history of problems with anesthesia: No Surgical History Surgical History History of right inguinal hernia repair Hx of prostate biopsy History of esophagogastroduodenoscopy (EGD) H/O colonoscopy History of excision of mass History of hip replacement History of Problems with Anesthesia: Yes (Ponv ) Social History Social History Housing: House Are you a primary career resource specialist to a significant other at home: No Alcohol intake: current Alcohol intake frequency: a few times a month Alcohol type: hard liquor Patient Tobacco Use Status: Never used Tobacco e-Cigarette/Vaping Use: Never Used Second Hand Smoke Exposure: No Use of substances other than those prescribed or required for medical reasons: No Are you DNR?: No Advance Directives: No Advance Directives Information Provided: Yes service: No Current occupational status: employed 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 Current occupational exposures/hazards: No Cognitive needs: No Hearing needs: No Vision needs: No Meds Allergies Allergy/AdvReac Type Severity Reaction Status Date / Time allergy shots Allergy Intermediate rash Uncoded 12/08/22 08:58 SEASONAL ALLERGIES Allergy Mild RUNNY NOSE Uncoded 12/08/22 08:58 Home Medications Medication Instructions Recorded Confirmed Last Taken Type omeprazole 20 mg capsule,delayed 20 mg PO DAILY 12/10/20 12/18/22 12/18/22 History release multivitamin 1 tab PO DAILY 03/17/21 12/08/22 Unknown History sodium fluoride 1.1 %-potassium PO 03/15/22 12/08/22 Unknown History nitrate 5 % dental paste Exam Exam Date and Time: December 14, 2022 1218 Height,Weight and Vital Signs: Height 5 ft 10 in Weight 86.183 kg Pertinent Lab Results Pertinent Lab Results: Laboratory Tests 08/07/22 06:15 WBC 5.2 Hgb 14.4 Hct 42.6 Plt Count 203 Sodium 141 Potassium 4.0 Chloride 108 Carbon Dioxide 24 BUN 29 H Creatinine 0.87 Assessment and Plan Assessment Anesthesia Assessment: Chart Reviewed Final Anesthetic Review Family History of Problems with Anesthesia: No History of Problems with Anesthesia: Yes (Ponv ) Documented by User: Rena Bermudez MD 12/18/22 12:25 [facility] Past Medical History Medical History Anxiety COVID-19 vaccine series completed Prostate cancer Sleep apnea Elevated cholesterol HTN (hypertension) Inguinal hernia Elevated PSA Erectile dysfunction due to arterial insufficiency Herpes simplex Family History Family History Father Prostate cancer Heart attack, Onset Age: 65 Paternal Uncle Prostate cancer Surgical History Surgical History History of right inguinal hernia repair Hx of prostate biopsy History of esophagogastroduodenoscopy (EGD) H/O colonoscopy History of excision of mass History of hip replacement Social History Social History Housing: House Are you a primary career resource specialist to a significant other at home: No Alcohol intake: current Alcohol intake frequency: a few times a month Alcohol type: hard liquor Patient Tobacco Use Status: Never used Tobacco e-Cigarette/Vaping Use: Never Used Second Hand Smoke Exposure: No Use of substances other than those prescribed or required for medical reasons: No Are you DNR?: No Advance Directives: No Advance Directives Information Provided: Yes service: No Current occupational status: employed 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 Current occupational exposures/hazards: No Cognitive needs: No Hearing needs: No Vision needs: No Meds Allergies Allergy/AdvReac Type Severity Reaction Status Date / Time allergy shots Allergy Intermediate rash Uncoded 12/08/22 08:58 SEASONAL ALLERGIES Allergy Mild RUNNY NOSE Uncoded 12/08/22 08:58 Home Medications Medication Instructions Recorded Confirmed Last Taken Type omeprazole 20 mg capsule,delayed 20 mg PO DAILY 12/10/20 12/18/22 12/18/22 History release multivitamin 1 tab PO DAILY 03/17/21 12/08/22 Unknown History sodium fluoride 1.1 %-potassium PO 03/15/22 12/08/22 Unknown History nitrate 5 % dental paste Exam Airway Mallampati Class: II TM Dist: >3cm Neck ROM: Full Heart: rrr Lungs: cta Assessment and Plan Assessment Anesthesia Assessment: Anesthesia Plan Discussed Final Anesthetic Review NPO: Yes ASA Class: III Final Preanesthetic Review: No Changes in Pt Med Stat, Meds/Allgs Chart Reviewed, Consent Obtained/Reviewed and Anes Risks/Benef Reviewed Patient Risk: Low Procedure Risk: Low Anesthetic Plan Anesthetic Plan: GA Disposition: Standard PACU
[2022-12-18 11:00] VITALS: BP 136/89; PULSE 74; RESP 16; TEMP 36.7; O2SAT 98
[2022-12-18] MEDS: Acetaminophen 325 MG TABLET 975 MG PO (11:09)
[2022-12-18] MEDS: levoFLOXacin 500 MG TABLET PO (11:09)
[2022-12-18] MEDS: Lactated Ringers 1,000 ML 100 ML IVCONT (11:15)
--- NOTE | 2022-12-18 11:28 | MHC.SHP ---
Pre-Procedural Eval Section A Date of Service: 12/18/22 The patient is an INPATIENT: No Changes since office visit: No Cold of Flu in the past 2 weeks, No New Medical Problems, No Changes in Medication and No Patient answered all questions The History & Physical has been completed within 30 days and I have reviewed it.: Yes Section B Chief Complaint: Elevated prostate specific antigen [PSA] Details of Present Illness: prostate cancer Relevant Family History (Specify if Yes): No Relevant Social History: None Present Medications: see Short Stay Collaborative assessment Medical History: No relevant PMH History of Previous Operations: Relevant previous surgery/procedure and date(s) Allergies: Allergies Allergy/AdvReac Type Severity Reaction Status Date / Time allergy shots Allergy Intermediate rash Uncoded 12/08/22 08:58 SEASONAL ALLERGIES Allergy Mild RUNNY NOSE Uncoded 12/08/22 08:58 Review of Systems Sugical H&P ROS: Negative: Constitution, Cardiovascular, Respiratory, Neurological, Psychiatric, Hem-Onc, Allergic/Immunologic, Gastrointestinal, Genitourinary, Musculoskeletal, Integumentary, Endocrine and Eyes/Ears/Nose/Throat Exam Surgical H&P Exam: Normal: HEENT, Normal: Heart, Normal: Lungs, Normal: Extremities, Normal: Abdomen, Normal: Skin and Normal: Neurological Plan Diagnosis/Plan: Unchanged (prostate cancer) I have reviewed the history and physical and performed a pertinent physical examination on my patient. No changes have occurred unless specified. Time Spent With Patient Time: Total time managing care of this patient today ____ minutes.
--- NOTE | 2022-12-18 13:22 | P.OP_ITS ---
Operative Note Operative Note Date of Service: 12/18/22 Narrative: Preoperative diagnosis: Prostate Cancer Postoperative diagnosis: Prostate Cancer Procedure: 2. transrectal ultrasound-guided pudendal nerve block 3. MRI-US fusion image registration performed 3. transperineal ultrasound-guided prostate biopsy 15 core including targets Surgeon: Dr. Pierre Nayak Anesthetic: Sedation plus local Indications for procedure: Prostate Cancer low grade, prior low volume Procedure: After informed consent was verified, the patient was brought into the procedure area. Patient identity confirmed. Perioperative antibiotics confirmed. Safety pause time out performed. Anesthesia performed per protocol Ultrasound probe was placed per rectum Focalis software and hardware platform used An ultrasound-guided pudendal nerve block was performed using 10 cc of 1% lidocaine. 8 cc was placed at the base and 2 cc of the apex. Perineal injection of local. Ultrasound placement was made with grid calibration for height and prostate diameter in both the transverse and longitudinal planes. Once grid calibration was confirmed ultrasound acquisition was performed in the transverse fashion. Three dimensional ultrasound model was created. The planned needle targeting based on prior acquisition of MRI imaging was o verlaid on the ultrasound images and targets confirmed through ultrasound review. Based on pre -planning evaluation 15 targets had been identified. These included 1 target pirads 3 anterior lateral mid right identified lesion/s.. He tolerated the procedure well. Was transferred to stable condition in the PACU. Printed instructions regarding antibiotic use and common side effects such as low-grade temperature, potential infection and bleeding were given Pathology: 15 core prostate biopsy CPT 71975 Modifier 22 for complexity of planning and procedure execution
[2022-12-18 13:25] VITALS: BP 112/80; PULSE 81; RESP 16; TEMP 36.1; O2SAT 94
[2022-12-18 13:30] VITALS: BP 119/83; PULSE 77; RESP 18; O2SAT 95
[2022-12-18 13:35] VITALS: BP 126/81; PULSE 76; RESP 20; O2SAT 95
[2022-12-18 13:40] VITALS: BP 122/84; PULSE 74; RESP 18; TEMP 36; O2SAT 95
[2022-12-18 13:55] VITALS: BP 134/89; PULSE 72; RESP 18; TEMP 36.4; O2SAT 96
== END 2022-12-18 15:07 | disposition home or self-care (01) ==
PROVIDERS: PCP Physician Assistant; Visit Provider Urology
PROC: (CPT 55700; principal; 2022-12-18 12:10)
DX: C61 Malignant neoplasm of prostate (principal); R97.20 Elevated prostate specific antigen [PSA]; N52.1 Erectile dysfunction due to diseases classified elsewhere; I77.1 Stricture of artery; I10 Essential (primary) hypertension; E78.00 Pure hypercholesterolemia, unspecified; F41.9 Anxiety disorder, unspecified; J30.2 Other seasonal allergic rhinitis; G47.30 Sleep apnea, unspecified; Z79.899 Other long term (current) drug therapy; Z98.890 Other specified postprocedural states
CPT/HCPCS: 55706; 88305; J3010

== ENCOUNTER → 2022-12-18 10:44 | Outpatient (BNV) | payer OTHER, SELFPAY | PROVIDERS: PCP Physician Assistant; Visit Provider Urology | DX: C61 Malignant neoplasm of prostate (principal) | CPT/HCPCS: 55700; 76942 ==

== ENCOUNTER 2023-01-05 10:45 | Outpatient (AMB) | payer OTHER, SELFPAY ==
--- NOTE | 2023-01-05 10:46 | A.OFFVIS_ITS ---
Intake Intake Visit Reasons: Bx results Intake Note: Patient is Present for Telephone Follow Up Biopsy Urology Med: Finasteride, Sildenafil, Tadalafil Antibiotic Allergy: None Blood Thinner: None Pharamcy: [facility] Allergies allergy shots Allergy (Intermediate, Uncoded 01/05/23 10:47) rash SEASONAL ALLERGIES Allergy (Mild, Uncoded 01/05/23 10:47) RUNNY NOSE HPI HPI Comments History of Present Illness Details Norberto is a pleasant male. He is a patient of Dr. Winchester. He is seen for the following urologic conditions - prostate cancer Telemedicine Evaluation 15 min Consultation [employer] attempted Ultrasound MRI targeted biopsy positive manage with MRI identified 8 mm lesion Discussed biopsy findings Ultra low volume, low risk disease with intermediate risk PSA Treatment options would include active surveillance, brachytherapy, robotic surgery Based on low risk, low volume features would lean toward brachytherapy if would like therapy First step to repeat PSA in 2 months and make sure he is not physically active for 2 days prior to PSA Prostate cancer: November 2018 [place] 3 + 3 3 cores, repeat May 2020 [place] 3 + 3 Prostate cancer was diagnosed November [address] Nayak . Diagnosis was reached by needle biopsy, for elevated PSA, PSA at diagnosis 5.9, size at TRUS 35gm. Last biopsy May 2020 Three cores positive none greater than 50% Continue active surveillance Initial biopsy November 2018 4/12 cores All Gl 3+3 5%,5%,10%,20% - . TNM Classification of Malignant Tumours (TNM) T1c. D'Aysha (NCCN) risk category is Low Risk (PSA< 10, Gl < 7, T1c) - Group 1 Repeat biopsy May 2020 Histologic type: Adenocarcinoma, acinar type Histologic grade: - [place] score: 3+3=6 Number cores positive: 3 - RBL 5%, RBM 10%, RAL 40% - Total number of cores: 12 [employer] genetics performed - 05/23 - Polaris risk score 4.5 - disease specific mortality 10 year 2.9% - Active surveillance recommended. 12/25 US MRI Fusion Biopsy Histologic type: Acinar adenocarcinoma [place] score: 3+3=6 (K) 15%; 3+4=7 (L) 20% - matched MRI Grade group: 1 Tumor quantitation: Number cores positive: 2 Total number of cores: 14 Periprostatic fat inv.: Not identified Seminal vesicle inv.: Not identified Perineural inv.: Not identified LVI: Not identified Initial therapy included Primary treatment - Deferred Therapy (active surveillance) 11/21 Recent labs included 03/24 3.0 08/22 8.0 not on finasteride, 09/21 5.1, 12/22 5.7, 04/25 9.5, 08/23 6.8, 11/23 6.4, 03/26 5.4, 07/24 6.3 finasteride every day, 03/27 5.3 6%, 07/25 4.5 7% Imaging - 12/22 MRI at [facility]. Right mid posterior lateral transition zone. PiRADs 3. MICK negative 9mm - 10/24 MRI left lateral 6 mm PI-RADS 3 - 24gm prostate Treatment plan continue surveillance [facility] Medical History Anxiety COVID-19 vaccine series completed Prostate cancer Sleep apnea Elevated cholesterol HTN (hypertension) Inguinal hernia Elevated PSA Erectile dysfunction due to arterial insufficiency Herpes simplex Surgical History History of right inguinal hernia repair Hx of prostate biopsy History of esophagogastroduodenoscopy (EGD) H/O colonoscopy History of excision of mass History of hip replacement Family History Father Prostate cancer Heart attack, Onset Age: 65 Paternal Uncle Prostate cancer Social History Housing: House Are you a primary personal caregiver to a significant other at home: No Alcohol intake: current Alcohol intake frequency: a few times a month Alcohol type: hard liquor Patient Tobacco Use Status: Never used Tobacco e-Cigarette/Vaping Use: Never Used Second Hand Smoke Exposure: No service: No Current occupational status: employed 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 Current occupational exposures/hazards: No Cognitive needs: No Hearing needs: No Vision needs: No Review of Systems Const All systems reviewed & are unremarkable except as noted in HPI and below Reports no additional complaints Resp Reports no additional complaints GI Reports no additional complaints Reports as per HPI Musc Reports no additional complaints Physical Exam Telemedicine evaluation Appropriate responses Regular breathing rate and rhythm HEENT Head: Yes normal to inspection Ears: hearing grossly normal bilaterally Eyes General: appearance normal, both eyes and all related structures Neck Neck: Yes normal visual inspection Chest Chest palpation & inspection: normal inspection of the chest Resp Effort & Inspection: normal respiratory effort and able to speak in complete sentences Assessment & Plan Assessment & Plan (1) Prostate cancer: Comment: November 2018 [place] 3 + 3 low-grade, low volume disease Active surveillance repeat biopsy 04/26 Code(s): C61 - Malignant neoplasm of prostate Plan Two month follow-up PSA Orders: Orders Prostate Specific Antigen Today C61 - Malignant neoplasm of prostate Patient Instructions: Imaging studies, laboratory and physical exam results were discussed and revi ewed in detail. No major barriers to patient understanding were identified. An opportunity to ask questions regarding the treatment plan was provided. All questions were answered. The patient expressed understanding and agreement with the above treatment plan. The patient is aware they should contact our office by phone for worsening of their current condition or the appearance of new urologic symptoms. Compliance is encouraged with any medications and followup testing that is ordered. It is a privilege to participate in the urologic care of your patient. If you have any questions or concerns regarding treatment for the above conditions, or other urologic issues, please do not hesitate to contact me. The office telephone contact is [phone]. This note is constructed using voice recognition software. While every effort has been made to ensure accuracy gun numberer errors may have been included. Yours sincerely, Dr Pierre Nayak MD, [facility] - Urology Providers of Expert, Compassionate Care for the Genitourinary System Telehealth Telehealth Location of provider rendering services: practice address Location of patient: address on file Patient Identification confirmed using: Name, : Yes Telehealth method: voice only Patient verbally consented to treatment: Yes Patient verbally consented to billing insurance company: Yes Patient informed of any privacy concerns related to visit: Yes Coding Level of Care Code Tele Est Pt Level 3 (11630) Diagnoses Prostate cancer C61
== END 2023-01-05 11:46 | disposition home or self-care (01) ==
LOC: HO.HUSH 10:45
PROVIDERS: PCP Physician Assistant; Visit Provider Urology
DX: C61 Malignant neoplasm of prostate (principal)
CPT/HCPCS: 99213

== ENCOUNTER → 2023-01-05 10:45 | Outpatient (BNVA) | payer OTHER, SELFPAY | PROVIDERS: PCP Physician Assistant; Visit Provider Urology ==

== ENCOUNTER 2023-03-06 10:08 | Outpatient (REF) | payer OTHER, SELFPAY ==
[2023-03-06 11:10] LABS: Hematocrit 41.3 % (42.0-52.0); Hemoglobin 13.9 g/dl (14.0-18.0); Mean Corpuscular HGB Conc 33.7 g/dl (31.0-36.0); Mean Corpuscular Hemoglobin 28.7 pg (27.0-33.0); Mean Corpuscular Volume 85.3 fL (80.0-98.0); Mean Platelet Volume 9.3 fL (9.4-12.4); Platelet Count 184 X10*3/uL (160-400); Red Blood Count 4.84 X10*6/uL (4.60-5.80); Red Cell Distribution Width 12.4 % (11.0-16.0); White Blood Count 4.9 X10*3/uL (4.8-10.8)
[2023-03-06 12:06] LABS: Alanine Aminotransferase 28 U/L (0-40); Albumin Level 4.3 g/dL (3.5-5.0); Alkaline Phosphatase 69 U/L (39-117); Anion Gap 16 (12-20); Aspartate Amino Transferase 29 U/L (5-37); Bilirubin Total 0.5 mg/dL (0.0-1.0); Blood Urea Nitrogen 24 mg/dL (9-16); Calcium 9.4 mg/dL (8.4-10.2); Carbon Dioxide 24 mmol/L (22-29); Chloride 105 mmol/L (96-108); Cholesterol 301 mg/dL (<200); Estimated Glomerular Filt Rate > 60; Glucose Fasting 109 mg/dL (60-99); HDL Cholesterol 48 mg/dL (>40); LDL Cholesterol Calculated 183 mg/dL (<100); Potassium 4.2 mmol/L (3.3-5.1); Sodium 141 mmol/L (135-145); Total Protein 7.9 g/dL (6.5-8.0); Triglycerides 350 mg/dL (<150)
== END 2023-03-06 10:09 | disposition home or self-care (01) ==
LOC: HO.LAB 10:08
PROVIDERS: Urology; PCP Physician Assistant; Visit Provider Physician Assistant
DX: Z12.5 Encounter for screening for malignant neoplasm of prostate (principal); N40.1 Benign prostatic hyperplasia with lower urinary tract symptoms; N13.8 Other obstructive and reflux uropathy; C61 Malignant neoplasm of prostate; E78.2 Mixed hyperlipidemia; I10 Essential (primary) hypertension
CPT/HCPCS: 36415; 80053; 80061; 84153; 85027

== ENCOUNTER 2023-03-09 10:06 | Outpatient (AMB) | payer OTHER, SELFPAY ==
--- NOTE | 2023-03-09 10:07 | MHC.OFFVIS ---
Intake Intake Visit Reasons: 2M PSA(set) Intake Note: Patient is Present for Telephone Follow Up PSA Urology Med: Finasteride, Sildenafil, Tadalafil Antibiotic Allergy: None Blood Thinner: None Allergies allergy shots Allergy (Intermediate, Uncoded 03/09/23 10:08) rash SEASONAL ALLERGIES Allergy (Mild, Uncoded 03/09/23 10:08) RUNNY NOSE HPI HPI Comments History of Present Illness Details Norberto is a pleasant male. He is a patient of Dr. Winchester. He is seen for the following urologic conditions - prostate cancer Telemedicine Evaluation 15 min Consultation [employer] attempted Has been followed for 4 years with initially low-grade disease and low risk on genetics PSA has continued to rise Imaging shows low volume disease and 10 mm Recommendation for intervention Given age and grade and volume of disease would recommend brachytherapy versus robotic surgery Referrals made Discussed risks and benefits Review in 6 weeks Prostate cancer: November 2018 Uziel 3 + 3 3 cores, repeat May 2020 Thornton 3 + 3 Prostate cancer was diagnosed November [address] Dr Nayak . Diagnosis was reached by needle biopsy, for elevated PSA, PSA at diagnosis 5.9, size at TRUS 35gm. Last biopsy May 2020 Three cores positive none greater than 50% Continue active surveillance Initial biopsy November 2018/ cores All Gl 3+3 5%,5%,10%,20% - . TNM Classification of Malignant Tumours (TNM) T1c. D'Aysha (NCCN) risk category is Low Risk (PSA< 10, Gl < 7, T1c) - Group 1 Repeat biopsy May 2020 Histologic type: Adenocarcinoma, acinar type Histologic grade: - Thornton score: 3+3=6 Number cores positive: 3 - RBL 5%, RBM 10%, RAL 40% - Total number of cores: 12 Polaris genetics performed - 05/23 - Polaris risk score 4.5 - disease specific mortality 10 year 2.9% - Active surveillance recommended. 12/25 US MRI Fusion Biopsy Histologic type: Acinar adenocarcinoma Uziel score: 3+3=6 (K) 15%; 3+4=7 (L) 20% - matched MRI Grade group: 1 Tumor quantitation: Number cores positive: 2 Total number of cores: 14 Periprostatic fat inv.: Not identified Seminal vesicle inv.: Not identified Perineural inv.: Not identified LVI: Not identified Initial therapy included Primary treatment - Deferred Therapy (active surveillance) 11/21 Recent labs included 03/24 3.0 08/22 8.0 not on finasteride, 09/21 5.1, 12/22 5.7, 04/25 9.5, 08/23 6.8, 11/23 6.4, 03/26 5.4, 07/24 6.3 finasteride every day, 03/27 5.3 6%, 07/25 4.5 7%, 03/27 8.4 Imaging - 12/22 MRI at [facility]. Right mid posterior lateral transition zone. PiRADs 3. MICK negative 9mm - 10/24 MRI left lateral 6 mm PI-RADS 3 - 24gm prostate Prostate Cancer Therapy Discussion today focused on treatment options for prostate cancer. The patient has already reviewed educational materials that had been provided to him in printed form. The NCCN criteria for imaging, molecular testing and germ line testing were discussed. Prognostic Model Information calculated using STAR-CAPS [email or web address]/ Stage Prediction 1C 5yr Specific Mortality 0.5% 10yr Specfic Mortality 2.0% The discussion was then focused on therapeutic options which include 1) Deferred therapy/active surveillance. Recommended in the setting of low volume, very low risk and low risk disease. Criteria include 3 cores all less, same side, no core greater than 50% disease. Evaluation may be augmented with imaging such as pelvic MRI and genetic evaluation of biopsy material. Somatic tissue genetic testing such as Prolaris, which focuses on tumor-specific pathogenic variants that may identify an indication for further germline testing and can guide therapeutic decisions in the setting of low risk and low volume disease. - The patient is a candidate for active surveillance. NCCN Prostate Cancer Guideline 4.2022 PROS-F Page 2 PRINCIPLES OF ACTIVE SURVEILLANCE AND OBSERVATION Confirmatory Testing to Establish Appropriateness of Active Surveillance: - Goals of confirmatory testing are to help facilitate early identification of those patients who may be at a higher risk of future grade reclassification or cancer progression. - Since an initial prostate biopsy may underestimate tumor grade or volume, confirmatory testing is strongly recommended within the first 6 to 12 months of diagnosis for patients who are considering active surveillance. - Options for confirmatory testing include prostate biopsy, mpMRI with calculation of PSA density (and repeat biopsy as indicated), and/or molecular tumor analysis, see Principles of Risk Stratification (PROS-D). - Early confirmatory testing may not be necessary in patients who have had an mpMRI prior to diagnostic biopsy. ?All patients should undergo a confirmatory prostate biopsy within 1?2 years of their diagnostic biopsy 2) Targeted Cryotherapy Ablation. The technique of cryotherapy was described. PSA free progression rates were discussed. Suitable candidates in general have low volume grade group 1 or grade group 2 disease. Typically pelvic MRI with targeted mapping biopsies are required for treatment planning. - The patient is a candidate for image guided targeted cryotherapy ablation. 3) Robotic Prostatectomy. Salient features of the patient's PSA, Thornton score and disease stage were applied to the [facility] nomogram. Relevant rates of extracapsular extension, seminal vesicle involvement shira involvement with discussed. Pathologic up staging and down staging on final specimen was discussed. Salient features of the procedure, hospitalization and recovery were discussed. - The patient is a candidate for robotic prostatectomy. 4) Radiation therapy was described. IMRT, hyperfractionated therapy, permanent seed implant with all without concomitant androgen deprivation therapy and rectal protection were discussed. There is a small separation regarding cancer control between radiation and prostatectomy at approximately 15 years. There is an evolving preference for hyper fractionated therapy. This gives the same radiation total dose in a reduced number of individual treatment sessions. This approach is associated with higher risks of rectal bleeding. To ameliorate these risks injection of a spacer gel posterior to the prostate has been advocated. This is only indicated in patients without evidence of extracapsular extension posteriorly, and should be considered with caution where disease is primary grade 4. Brachytherapy was described in detail. Typically this is a same day procedure. Therapy is typically well tolerated and gives good control for low-risk prostate cancer and cancer that does not involve neurovascular invasion. - The patient is a candidate for brachytherapy Different risks were described for each therapeutic option. Ranges from the published literature were discussed. Consequent morbidity and treatment to address complications were discussed. These include - robotic prostatectomy - Typically patients are in hospital for one day and miss 4 weeks of work. The importance of preoperative walking and Kegel exercises was stressed. Complications, including but not limited to; acute complications regarding blood loss, transfusion, DVT, ileus, wound infection and potential mortality. Long-term complications such as impotence, UTI, urethral stricture, bladder neck contracture, incontinence. Penile shrinkage and chronic pain were discussed and reviewed. - radiation - IMRT typically this takes 25-40 daily treatments administered on a Sunday through Sunday sequence. Treatment is normally well tolerated. associated side effects include urge, frequency, dysuria, hematuria, loose bowels and fatigue, particularly toward the end of therapy. These can be ameliorated to some degree with medication. Long-term risks regarding impotence and a small risk of chronic urinary urge and incontinence were discussed - brachytherapy General anesthesia is used. Radioactive seeds are placed. There may be a required planning visit. Risks regarding anesthesia with DVT, PE, infection, urinary retention, urgency, and frequency were discussed. Long-term risks include bladder neck contraction, impotence, urge, potential for secondary cancer of the bladder base The patient has Grade Group 2 pT 1 prostate cancer disease The patient is not a candidate for germline testing in accordance with the NCCN guideline [facility] Medical History Anxiety COVID-19 vaccine series completed Prostate cancer Sleep apnea Elevated cholesterol HTN (hypertension) Inguinal hernia Elevated PSA Erectile dysfunction due to arterial insufficiency Herpes simplex Surgical History History of right inguinal hernia repair Hx of prostate biopsy History of esophagogastroduodenoscopy (EGD) H/O colonoscopy History of excision of mass History of hip replacement Family History Father Prostate cancer Heart attack, Onset Age: 65 Paternal Uncle Prostate cancer Social History Housing: House Are you a primary care management specialist to a significant other at home: No Alcohol intake: current Alcohol intake frequency: a few times a month Alcohol type: hard liquor Patient Tobacco Use Status: Never used Tobacco e-Cigarette/Vaping Use: Never Used Second Hand Smoke Exposure: No service: No Current occupational status: employed 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 Current occupational exposures/hazards: No Cognitive needs: No Hearing needs: No Vision needs: No Review of Systems Const All systems reviewed & are unremarkable except as noted in HPI and below Reports no additional complaints Resp Reports no additional complaints GI Reports no additional complaints Reports as per HPI Musc Reports no additional complaints Physical Exam Telemedicine evaluation Appropriate responses Regular breathing rate and rhythm HEENT Head: Yes normal to inspection Ears: hearing grossly normal bilaterally Eyes General: appearance normal, both eyes and all related structures Neck Neck: Yes normal visual inspection Chest Chest palpation & inspection: normal inspection of the chest Resp Effort & Inspection: normal respiratory effort and able to speak in complete sentences Assessment & Plan Assessment & Plan (1) Prostate cancer: Comment: November 2018 Uziel 3 + 3 low-grade, low volume disease Active surveillance repeat biopsy 04/26 Code(s): C61 - Malignant neoplasm of prostate Plan See above Orders: Referrals Radiation Oncology Referral C61 - Malignant neoplasm of prostate Urology Referral C61 - Malignant neoplasm of prostate Patient Instructions: Imaging studies, laboratory and physical exam results were discussed and reviewed in detail. No major barriers to patient understanding were identified. An opportunity to ask questions regarding the treatment plan was provided. All questions were answered. The patient expressed understanding and agreement with the above treatment plan. The patient is aware they should contact our office by phone for worsening of their current condition or the appearance of new urologic symptoms. Compliance is encouraged with any medications and followup testing that is ordered. It is a privilege to participate in the urologic care of your patient. If you have any questions or concerns regarding treatment for the above conditions, or other urologic issues, please do not hesitate to contact me. The office telephone contact is [phone]. This note is constructed using voice recognition software. While every effort has been made to ensure accuracy artillery or naval gunfire observer errors may have been included. Yours sincerely, Dr Pierre Nayak MD, [facility] - Urology Providers of Expert, Compassionate Care for the Genitourinary System Telehealth Telehealth Location of provider rendering services: practice address Location of patient: address on file Patient Identification confirmed using: Name, : Yes Telehealth method: voice only Patient verbally consented to treatment: Yes Patient verbally consented to billing insurance company: Yes Patient informed of any privacy concerns related to visit: Yes Coding Level of Care Code Tele Est Pt Level 4 (58459) Diagnoses Prostate cancer C61
== END 2023-03-09 11:02 | disposition home or self-care (01) ==
LOC: HO.HUSH 10:06
PROVIDERS: PCP Physician Assistant; Visit Provider Urology
DX: C61 Malignant neoplasm of prostate (principal)
CPT/HCPCS: 99214

== ENCOUNTER → 2023-03-09 10:06 | Outpatient (BNVA) | payer OTHER, SELFPAY | PROVIDERS: PCP Physician Assistant; Visit Provider Urology ==

== ENCOUNTER 2023-03-12 08:23 | Outpatient (AMB) | payer OTHER, SELFPAY ==
[2023-03-12 08:39] VITALS: BP 130/92; PULSE 87; O2SAT 97; BMI 28.0
--- NOTE | 2023-03-12 08:39 | MHC.PC.OV ---
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: No United [place] Marshal: Not Required per policy Accompanied by: Self / Same As Patient Allergies allergy shots Allergy (Intermediate, Uncoded 03/12/23 08:50) rash SEASONAL ALLERGIES Allergy (Mild, Uncoded 03/12/23 08:50) RUNNY NOSE Medication List - Last Reconciled 03/12/23 by Zan Winchester PA-C acetaminophen ER 650 mg PO Q12H 14 days atorvastatin 20 mg PO DAILY 90 days finasteride 5 mg PO DAILY 90 days losartan 50 mg PO DAILY meloxicam 15 mg PO DAILY 30 days multivitamin 1 tab PO DAILY omeprazole 20 mg PO DAILY sertraline 50 mg PO DAILY sildenafil 100 mg PO DAILY PRN 30 days sodium fluoride-pot nitrate 1.1-5 % PO tadalafil 10 mg PO DAILY PRN 30 days valacyclovir 500 mg PO Q12H 7 days Tobacco use date assessed: 08/10/22 Dental Screening Dental Screen Date: 03/12/23 Did you have a dental visit in the last 12 months?: Yes Did you have a dental problem in the last 6 months where you did not have access to dental care?: No Was dental information given to patient?: Patient has dentist HPI f/u HLD/ HTN HPI Details Patient is a 57-year-old male here today for a follow-up visit? Patient has a past medical history significant for hypertension, insomnia, prostate cancer. Concern--> reports over the last 2 months having sinus pressure and pain to which he has been using [id number] medications that have not been helping. He otherwise denies any fevers or nasal discharge. Prostate cancer:? Patient followed by urologist, PSA remain elevated. Recommendations have been made for brachytherapy. Be following with Radiation Oncology at [place] in near future. .. Hypertension: Does report his BLood pressure slightly elevated today in office.? Reports he for God to take his medication today.? He continues on losartan 50 mg.? He otherwise denies any chest discomfort, headaches, SOB, vision issues. Advised on increasing his losartan dose though he would like to hold off at this time work on lifestyle modifications. . Hyperlipidemia: Noted elevated total cholesterol and LDL on most recent lipid panel. We started statin therapy. PLAN: Will recheck lipid panel in 4 months. Laboratory Tests 08/07/22 08/07/22 08/07/22 06:15 06:15 06:15 Hgb Creatinine Fasting Glucose 100 H Triglycerides 339 Cholesterol 259 LDL Cholesterol, C alc Prostate Specific Ag 08/07/22 11/14/22 03/06/23 06:15 06:13 10:21 Hgb Creatinine Fasting Glucose 109 H Triglycerides Cholesterol LDL Cholesterol, C alc 149 Prostate Specific Ag 13.30 H 03/06/23 03/06/23 03/06/23 10:21 10:21 10:21 Hgb 13.9 L Creatinine Fasting Glucose Triglycerides 350 H Cholesterol 301 H LDL Cholesterol, C alc 183 H Prostate Specific Ag 03/06/23 03/06/23 10:21 10:21 Hgb Creatinine 0.90 Fasting Glucose Triglycerides Cholesterol LDL Cholesterol, C alc Prostate Specific Ag 8.40 H PFSH Medical History Anxiety COVID-19 vaccine series completed Prostate cancer Sleep apnea Elevated cholesterol HTN (hypertension) Inguinal hernia Elevated PSA Erectile dysfunction due to arterial insufficiency Herpes simplex Surgical History History of right inguinal hernia repair Hx of prostate biopsy History of esophagogastroduodenoscopy (EGD) H/O colonoscopy History of excision of mass History of hip replacement Family History Father Prostate cancer Heart attack, Onset Age: 65 Paternal Uncle Prostate cancer Social History Housing: House Are you a primary caregivers non medical to a significant other at home: No Alcohol intake: current Alcohol intake frequency: a few times a month Alcohol type: hard liquor Patient Tobacco Use Status: Never used Tobacco e-Cigarette/Vaping Use: Never Used Second Hand Smoke Exposure: No service: No Current occupational status: employed 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 Junior Breen, Kisha Valverde, Herbie Vela and colleagues, with an educational deloris from [employer]. Review of Systems Const Denies headache(s) Eyes Denies loss of vision ENT Denies vertigo, Denies dizziness, Denies headache(s) and Denies sore throat Card Denies chest pain, Denies leg edema and Denies lightheadedness Resp Denies cough, Denies hemoptysis and Denies wheezing GI Denies abdominal pain, Denies melena, Denies constipation, Denies diarrhea and Denies vomiting Denies dysuria, Denies urinary frequency and Denies urinary urgency Musc Denies arthralgias, Denies joint swelling, Denies numbness and Denies tingling Neuro Denies Abnormal speech present, Denies behavioral changes, Denies vertigo, Denies dizziness, Denies headache(s), Denies loss of vision, Denies memory loss, Denies numbness and Denies tingling Psych Denies anxiety, Denies behavioral changes, Denies depression, Denies memory loss and Denies panic attacks Rodo/Lymph Denies easy bleeding and Denies easy bruising Aller/Immun Denies wheezing Physical exam (Primary Care) Vital Signs: Last Vital Signs Pulse 87 03/12/23 08:39 BP 130/92 H 03/12/23 08:39 Pulse Ox 97 03/12/23 08:39 Oxygen Delivery Method Room Air 03/12/23 08:39 BMI result Body Mass Index 28.0 Tobacco/Smoking Status: Tobacco use Status Tobacco use date assessed 08/10/22 03/12/23 08:40 Patient Tobacco Use Status Never used Tobacco 03/12/23 08:40 e-Cigarette/Vaping Use Never Used 03/12/23 08:40 Thrive Assessment: Date of Thrive Assessment Date Thrive assessed 08/10/22 03/12/23 08:40 Const General: healthy appearing, no acute distress, alert and awake Nutritional Appearance: well nourished Orientation/consciousness: oriented to person, oriented to place and oriented to time HENMT Ears: TM's normal bilaterally General nose exam: Normal nasal mucous membranes and turbinates present Eyes Conjunctivae: conjunctivae normal Sclerae: sclerae normal Pupils: Equal, round and reactive pupils present Neck Neck: Yes no lymphadenopathy and Yes no JVD Thyroid: Thyroid normal Carotids: no bruits Resp Effort & Inspection: normal respiratory effort and not tachypneic Auscultation: no crackles, no rales, no rhonchi and no wheezes Cardio Rate: regular rate Rhythm: regular rhythm Heart sounds: no murmurs and normal S1 and S2 GI Palpation (GI): Soft to palpation, nontender, no hepatomegaly and no splenomegaly Auscultation: normal bowel sounds Skin General skin exam: no rashes or lesions noted and dry skin Neuro General: oriented to person, oriented to place and oriented to time Cranial nerves: Yes Equal, round and reactive pupils present Speech: No Abnormal speech present Gait exam (Neuro): Normal gait present Motor exam (neuro): no tremor noted Extrem Right upper extremity: full ROM Left upper extremity: full ROM Right lower extremity: full ROM; no edema Left lower extremity: full ROM; no edema Psych Mental Status: mental status grossly normal Speech and movement: Normal speech and movement present Affect: normal affect Attitude: cooperative Thought process: Normal thought process present Office Procedures Cerumen Removal From which ear canal was the cerumen removed: bilateral Removal: irrigation and otoscope w/curette Notes: patient tolerated procedure well [id number] Irrigation/Lavage Assessment and Plan Assessment & Plan (1) HTN (hypertension): Code(s): I10 - Essential (primary) hypertension Qualifiers: Hypertension type: primary hypertension Qualified Code(s): I10 - Essential (primary) hypertension Plan: Blood pressure slightly elevated today in office. He reports he got to take his medication today. Will consider increasing his losartan dose if blood pressures at home remain above 140/90.. Goal blood pressure be below 140/90 (2) Hyperlipidemia: Code(s): E78.5 - Hyperlipidemia, unspecified Qualifiers: Hyperlipidemia type: mixed hyperlipidemia Qualified Code(s): E78.2 - Mixed hyperlipidemia Plan: Most recent fasting lipid panel showing elevated total cholesterol and LDL. He has started on statin therapy. Will recheck his fasting lipids in 4 months to assure stabilization.. Goal LDL to be below 130 (3) Prostate cancer: Comment: November 2018 Uziel 3 + 3 low-grade, low volume disease Active surveillance repeat biopsy 04/26 Code(s): C61 - Malignant neoplasm of prostate Plan: Continues to follow Urology -was under active surveillance though PSA remains elevated. Recommendations have been made for brachytherapy (4) Sinusitis: Code(s): J32.9 - Chronic sinusitis, unspecified Qualifiers: Chronicity: subacute Sinusitis location: frontal Qualified Code(s): J01.10 - Acute frontal sinusitis, unspecified Plan: Continues to have signs symptoms and sinusitis. Will try antibiotic. Advised to continue nasal spray and allergy medication. (5) Impacted cerumen, bilateral: Code(s): H61.23 - Impacted cerumen, bilateral Plan: Does have bilateral cerumen impaction today in office though after lavage has been completely cleared. Patient tolerated procedure well. Orders: Orders XR sinus <3V Today J01.10 - Acute frontal sinusitis, unspecified Lipid Panel 4 Months E78.2 - Mixed hyperlipidemia Medications: New azithromycin For 250 mg dose pack: take 500 mg today (day 1), then 250 mg for 4 days (days 2-5) PO 6 tabs 0RF J01.10 - Acute frontal sinusitis, unspecified Coding Level of Care Code Est Pt Level 4 (58225) Diagnoses Primary hypertension I10 Hypertension type: primary hypertension Mixed hyperlipidemia E78.2 Hyperlipidemia type: mixed hyperlipidemia Prostate cancer C61 Subacute frontal sinusitis J01.10 Chronicity: subacute Sinusitis location: frontal Impacted cerumen, bilateral H61.23 CPT Codes Office Procedure - CPT: 73117-[id number] Irrigation/Lavage ([id number])
== END 2023-03-12 09:26 | disposition home or self-care (01) ==
PROVIDERS: PCP Physician Assistant; Visit Provider Physician Assistant
DX: I10 Essential (primary) hypertension (principal); C61 Malignant neoplasm of prostate; E78.2 Mixed hyperlipidemia; J01.10 Acute frontal sinusitis, unspecified; H61.23 Impacted cerumen, bilateral
CPT/HCPCS: 69209; 99214

== ENCOUNTER 2023-03-19 08:04 | Outpatient (REF) | payer OTHER, SELFPAY ==
--- NOTE | ~2023-03-19 | XR_ITS ---
EXAMINATION: XR SINUSES CLINICAL INFORMATION: Acute frontal sinusitis. COMPARISON: None available. TECHNIQUE: 3 views of the sinuses were obtained. FINDINGS: Possible partial opacification of the left maxillary sinus. Other paranasal sinuses are grossly well aerated. No displaced fractures. No significant soft tissue abnormality. XR/XR sinus <3V IMPRESSION: Possible partial opacification of the left maxillary sinus. Frontal sinuses appear grossly well are aerated.
== END 2023-03-19 08:05 | disposition home or self-care (01) ==
LOC: HO.XRAY 08:04
PROVIDERS: PCP Physician Assistant; Visit Provider Physician Assistant
DX: J01.10 Acute frontal sinusitis, unspecified (principal)
CPT/HCPCS: 70210

== ENCOUNTER 2023-07-26 05:59 | Outpatient (REF) | payer OTHER, SELFPAY | END 2023-07-26 06:00 | disposition home or self-care (01) | LOC: HO.LAB 05:59 | PROVIDERS: PCP Physician Assistant; Visit Provider Urology | DX: C61 Malignant neoplasm of prostate (principal); Z12.5 Encounter for screening for malignant neoplasm of prostate | CPT/HCPCS: 36415; 84153 ==

== ENCOUNTER 2023-08-03 14:13 | Outpatient (AMB) | payer OTHER, SELFPAY ==
--- NOTE | 2023-08-03 14:36 | MHC.OFFVIS ---
Intake Visit Reasons: 6w follow up(VM to confirm) Intake Note: Patient is Present for Follow Up Urology Medication: Tamsulosin, Finasteride, Tadalafil, Sildenafil Antibiotic Allergies: None Blood Thinners:None Allergies allergy shots Allergy (Intermediate, Uncoded 08/03/23 14:39) rash SEASONAL ALLERGIES Allergy (Mild, Uncoded 08/03/23 14:39) RUNNY NOSE Medication List - Last Reconciled 08/03/23 by Pierre Nayak MD acetaminophen ER 650 mg PO Q12H 14 days atorvastatin 20 mg PO DAILY 90 days azithromycin For 250 mg dose pack: take 500 mg today (day 1), then 250 mg for 4 days (days 2-5) PO finasteride 5 mg PO DAILY 90 days losartan 50 mg PO DAILY losartan-hydrochlorothiazide 50-12.5 mg 1 tab PO DAILY meloxicam 15 mg PO DAILY 30 days multivitamin 1 tab PO DAILY omeprazole 20 mg PO DAILY sertraline 50 mg PO DAILY sildenafil 100 mg PO DAILY PRN 30 days sodium fluoride-pot nitrate 1.1-5 % PO tadalafil 10 mg PO DAILY PRN 30 days tamsulosin mg PO DAILY valacyclovir 500 mg PO Q12H 7 days HPI Comments Details: Norberto is a pleasant male. He is a patient of Dr. Winchester. He is seen for the following urologic conditions - prostate cancer Has been followed for 4 years with initially low-grade disease and low risk on genetics PSA has continued to rise Imaging shows low volume disease and 10 mm Recommendation for intervention Given age and grade and volume of disease would recommend brachytherapy versus robotic surgery Referrals made Discussed risks and benefits Review in 6 weeks Prostate cancer: November 2018 [place] 3 + 3 3 cores, repeat May 2020 [place] 3 + 3 Prostate cancer was diagnosed November [address] Dr Nayak . Diagnosis was reached by needle biopsy, for elevated PSA, PSA at diagnosis 5.9, size at TRUS 35gm. Last biopsy May 2020 Three cores positive none greater than 50% Continue active surveillance Initial biopsy November 201806/14 cores All Gl 3+3 5%,5%,10%,20% - . TNM Classification of Malignant Tumours (TNM) T1c. D'Aysha (NCCN) risk category is Low Risk (PSA< 10, Gl < 7, T1c) - Group 1 Repeat biopsy May 2020 Histologic type: Adenocarcinoma, acinar type Histologic grade: - Uziel score: 3+3=6 Number cores positive: 3 - RBL 5%, RBM 10%, RAL 40% - Total number of cores: 12 Polaris genetics performed - 05/23 - Polaris risk score 4.5 - disease specific mortality 10 year 2.9% - Active surveillance recommended. 12/25 US MRI Fusion Biopsy Histologic type: Acinar adenocarcinoma Uziel score: 3+3=6 (K) 15%; 3+4=7 (L) 20% - matched MRI Grade group: 1 Tumor quantitation: Number cores positive: 2 Total number of cores: 14 Periprostatic fat inv.: Not identified Seminal vesicle inv.: Not identified Perineural inv.: Not identified LVI: Not identified Initial therapy included Primary treatment - Deferred Therapy (active surveillance) 11/21 Recent labs included 03/24 3.0 08/22 8.0 not on finasteride, 09/21 5.1, 12/22 5.7, 04/25 9.5, 08/23 6.8, 11/23 6.4, 03/26 5.4, 07/24 6.3 finasteride every day, 03/27 5.3 6%, 07/25 4.5 7%, 03/27 8.4 Imaging - 12/22 MRI at [facility]. Right mid posterior lateral transition zone. PiRADs 3. MICK negative 9mm - 10/24 MRI left lateral 6 mm PI-RADS 3 - 24gm prostate Prostate Cancer Therapy Discussion today focused on treatment options for prostate cancer. The patient has already reviewed educational materials that had been provided to him in printed form. The NCCN criteria for imaging, molecular testing and germ line testing were discussed. Prognostic Model Information calculated using STAR-CAPS [email or web address] Stage Prediction 1C 5yr Specific Mortality 0.5% 10yr Specfic Mortality 2.0% The discussion was then focused on therapeutic options which include 1) Deferred therapy/active surveillance. Recommended in the setting of low volume, very low risk and low risk disease. Criteria include 3 cores all less, same side, no core greater than 50% disease. Evaluation may be augmented with imaging such as pelvic MRI and genetic evaluation of biopsy material. Somatic tissue genetic testing such as Prolaris, which focuses on tumor-specific pathogenic variants that may identify an indication for further germline testing and can guide therapeutic decisions in the setting of low risk and low volume disease. - The patient is a candidate for active surveillance. NCCN Prostate Cancer Guideline 4.2022 PROS-F Page 2 PRINCIPLES OF ACTIVE SURVEILLANCE AND OBSERVATION Confirmatory Testing to Establish Appropriateness of Active Surveillance: - Goals of confirmatory testing are to help facilitate early identification of those patients who may be at a higher risk of future grade reclassification or cancer progression. - Since an initial prostate biopsy may underestimate tumor grade or volume, confirmatory testing is strongly recommended within the first 6 to 12 months of diagnosis for patients who are considering active surveillance. - Options for confirmatory testing include prostate biopsy, mpMRI with calculation of PSA density (and repeat biopsy as indicated), and/or molecular tumor analysis, see Principles of Risk Stratification (PROS-D). - Early confirmatory testing may not be necessary in patients who have had an mpMRI prior to diagnostic biopsy. ?All patients should undergo a confirmatory prostate biopsy within 1?2 years of their diagnostic biopsy 2) Targeted Cryotherapy Ablation. The technique of cryotherapy was described. PSA free progression rates were discussed. Suitable candidates in general have low volume grade group 1 or grade group 2 disease. Typically pelvic MRI with targeted mapping biopsies are required for treatment planning. - The patient is a candidate for image guided targeted cryotherapy ablation. 3) Robotic Prostatectomy. Salient features of the patient's PSA, Uziel score and disease stage were applied to the [facility] nomogram. Relevant rates of extracapsular extension, seminal vesicle involvement shira involvement with discussed. Pathologic up staging and down staging on final specimen was discussed. Salient features of the procedure, hospitalization and recovery were discussed. - The patient is a candidate for robotic prostatectomy. 4) Radiation therapy was described. IMRT, hyperfractionated therapy, permanent seed implant with all without concomitant androgen deprivation therapy and rectal protection were discussed. There is a small separation regarding cancer control between radiation and prostatectomy at approximately 15 years. There is an evolving preference for hyper fractionated therapy. This gives the same radiation total dose in a reduced number of individual treatment sessions. This approach is associated with higher risks of rectal bleeding. To ameliorate these risks injection of a spacer gel posterior to the prostate has been advocated. This is only indicated in patients without evidence of extracapsular extension posteriorly, and should be considered with caution where disease is primary grade 4. Brachytherapy was described in detail. Typically this is a same day procedure. Therapy is typically well tolerated and gives good control for low-risk prostate cancer and cancer that does not involve neurovascular invasion. - The patient is a candidate for brachytherapy Different risks were described for each therapeutic option. Ranges from the published literature were discussed. Consequent morbidity and treatment to address complications were discussed. These include - robotic prostatectomy - Typically patients are in hospital for one day and miss 4 weeks of work. The importance of preoperative walking and Kegel exercises was stressed. Complications, including but not limited to; acute complications regarding blood loss, transfusion, DVT, ileus, wound infection and potential mortality. Long-term complications such as impotence, UTI, urethral stricture, bladder neck contracture, incontinence. Penile shrinkage and chronic pain were discussed and reviewed. - radiation - IMRT typically this takes 25-40 daily treatments administered on a Sunday through Sunday sequence. Treatment is normally well tolerated. associated side effects include urge, frequency, dysuria, hematuria, loose bowels and fatigue, particularly toward the end of therapy. These can be ameliorated to some degree with medication. Long-term risks regarding impotence and a small risk of chronic urinary urge and incontinence were discussed - brachytherapy General anesthesia is used. Radioactive seeds are placed. There may be a required planning visit. Risks regarding anesthesia with DVT, PE, infection, urinary retention, urgency, and frequency were discussed. Long-term risks include bladder neck contraction, impotence, urge, potential for secondary cancer of the bladder base The patient has Grade Group 2 pT 1 prostate cancer disease The patient is not a candidate for germline testing in accordance with the NCCN guideline [facility] Medical History Anxiety COVID-19 vaccine series completed Prostate cancer Sleep apnea Elevated cholesterol HTN (hypertension) Inguinal hernia Elevated PSA Erectile dysfunction due to arterial insufficiency Herpes simplex Surgical History History of right inguinal hernia repair Hx of prostate biopsy History of esophagogastroduodenoscopy (EGD) H/O colonoscopy History of excision of mass History of hip replacement Family History Father Prostate cancer Heart attack, Onset Age: 65 Paternal Uncle Prostate cancer Social History Housing: House Are you a primary acute care surgeon to a significant other at home: No Alcohol intake: current Alcohol intake frequency: a few times a month Alcohol type: hard liquor Patient Tobacco Use Status: Never used Tobacco e-Cigarette/Vaping Use: Never Used Second Hand Smoke Exposure: No service: No Current occupational status: employed 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 Current occupational exposures/hazards: No Cognitive needs: No Hearing needs: No Vision needs: No Review of Systems Const Denies chills and Denies fever(s) Card Reports no additional complaints and Denies syncope Resp Denies cough GI Denies abdominal pain and Denies heartburn Reports as per HPI and Denies change in libido Neuro Denies syncope Psych Denies change in libido Endo Denies change in libido Physical Exam Const General: cooperative, healthy appearing, comfortable and no acute distress Orientation/consciousness: patient oriented x3 HEENT Face and sinus: Yes normal facial exam Mouth: moist mucous membranes Neck Neck: Yes normal visual inspection, Yes full ROM and Yes trachea midline Chest Chest palpation & inspection: normal inspection of the chest Resp Effort & Inspection: normal respiratory effort, able to speak in complete sentences and no respiratory distress GI Inspection: Yes normal to inspection Back/Spine/Pelvis Cervical Spine: normal cervical lordosis Thoracic/Lumbar Spine: thoracic and lumbar spine normal to inspection Skin General skin exam: no rashes or lesions noted Neuro General: patient oriented x3, gait normal, tone normal and moves all extremities Extrem General: Yes normal to inspection and Yes capillary refill normal Assessment & Plan Assessment & Plan (1) Prostate cancer: Comment: November 2018 [place] 3 + 3 low-grade, low volume disease Active surveillance repeat biopsy 04/26 Code(s): C61 - Malignant neoplasm of prostate Category: Medical Plan Three-month follow-up PSA Orders: Orders Prostate Specific Antigen 3 Months C61 - Malignant neoplasm of prostate Patient Instructions: Imaging studies, laboratory and physical exam results were discussed and reviewed in detail. No major barriers to patient understanding were identified. An opportunity to ask questions regarding the treatment plan was provided. All questions were answered. The patient expressed understanding and agreement with the above treatment plan. The patient is aware they should contact our office by phone for worsening of their current condition or the appearance of new urologic symptoms. Compliance is encouraged with any medications and followup testing that is ordered. It is a privilege to participate in the urologic care of your patient. If you have any questions or concerns regarding treatment for the above conditions, or other urologic issues, please do not hesitate to contact me. The office telephone contact is [phone]. This note is constructed using voice recognition software. While every effort has been made to ensure accuracy carburetor expert errors may have been included. Yours sincerely, Dr Pierre Nayak MD, [facility] - Urology Providers of Expert, Compassionate Care for the Genitourinary System Coding Level of Care Code Est Pt Level 3 (49352) Diagnoses Prostate cancer C61
== END 2023-08-03 15:18 | disposition home or self-care (01) ==
PROVIDERS: PCP Physician Assistant; Visit Provider Urology
DX: C61 Malignant neoplasm of prostate (principal)
CPT/HCPCS: 99213

== ENCOUNTER → 2023-08-03 14:13 | Outpatient (BNVA) | payer OTHER, SELFPAY | PROVIDERS: PCP Physician Assistant; Visit Provider Urology ==

== ENCOUNTER 2023-10-30 05:59 | Outpatient (REF) | payer OTHER, SELFPAY ==
[2023-10-30 07:45] LABS: Cholesterol 207 mg/dL (<200); HDL Cholesterol 43 mg/dL (>40); LDL Cholesterol Calculated 122 mg/dL (<100); Triglycerides 211 mg/dL (<150)
[2023-10-30 08:10] LABS: Prostate Specific Antigen 1.69 ng/mL (<0.05-4.0)
== END 2023-10-30 06:00 | disposition home or self-care (01) ==
LOC: HO.LAB 05:59
PROVIDERS: Absent Provider Urology; PCP Physician Assistant; Visit Provider Physician Assistant
DX: E78.2 Mixed hyperlipidemia (principal); C61 Malignant neoplasm of prostate; Z12.5 Encounter for screening for malignant neoplasm of prostate
CPT/HCPCS: 36415; 80061; 84153

== ENCOUNTER 2023-11-02 11:21 | Outpatient (AMB) | payer OTHER, SELFPAY ==
--- NOTE | 2023-11-02 11:22 | MHC.OFFVIS ---
Intake Visit Reasons: 3M PSA(set) Intake Note: Patient is Present for Telephone Follow Up For PSA Last Psa was 10/30/23 1.69ml Urology Med:Sidenfil,tadalafil Antibiotic Allergy: Blood Thinner:None Allergies allergy shots Allergy (Intermediate, Uncoded 11/08/23 09:31) rash SEASONAL ALLERGIES Allergy (Mild, Uncoded 11/08/23 09:31) RUNNY NOSE Medication List - Last Reconciled 11/02/23 by Pierre Nayak MD acetaminophen ER 650 mg PO Q12H 14 days atorvastatin 20 mg PO DAILY 90 days azithromycin For 250 mg dose pack: take 500 mg today (day 1), then 250 mg for 4 days (days 2-5) PO losartan 50 mg PO DAILY losartan-hydrochlorothiazide 50-12.5 mg 1 tab PO DAILY meloxicam 15 mg PO DAILY 30 days multivitamin 1 tab PO DAILY omeprazole 20 mg PO DAILY sertraline 50 mg PO DAILY sildenafil 100 mg PO DAILY PRN 30 days sodium fluoride-pot nitrate 1.1-5 % PO tadalafil 10 mg PO DAILY PRN 30 days valacyclovir 500 mg PO Q12H 7 days HPI Comments Details: Norberto is a pleasant male. He is a patient of Dr. Winchester. He is seen for the following urologic conditions - prostate cancer Telemedicine Evaluation 15 min Consultation [employer] Video Three-month follow-up from Procedure Urinary symptoms have resolved Off finasteride, off tamsulosin Continue to follow PSA PSA 10/26 1.7 Prostate cancer: November 2018 [place] 3 + 3 3 cores, repeat May 2020 [place] 3 + 3 - brachytherapy 05/26 Definitive therapy - brachytherapy 05/26 [facility] - PSA angel 1.1 Prostate cancer was diagnosed November 2018 Dr Nayak . Diagnosis was reached by needle biopsy, for elevated PSA, PSA at diagnosis 5.9, size at TRUS 35gm. Last biopsy May 2020 Three cores positive none greater than 50% Continue active surveillance Initial biopsy November 201806/14 cores All Gl 3+3 5%,5%,10%,20% - . TNM Classification of Malignant Tumours (TNM) T1c. D'Aysha (NCCN) risk category is Low Risk (PSA< 10, Gl < 7, T1c) - Group 1 Repeat biopsy May 2020 Histologic type: Adenocarcinoma, acinar type Histologic grade: - Uziel score: 3+3=6 Number cores positive: 3 - RBL 5%, RBM 10%, RAL 40% - Total number of cores: 12 Polaris genetics performed - 05/23 - Polaris risk score 4.5 - disease specific mortality 10 year 2.9% - Active surveillance recommended. 12/25 US MRI Fusion Biopsy Histologic type: Acinar adenocarcinoma [place] score: 3+3=6 (K) 15%; 3+4=7 (L) 20% - matched MRI Grade group: 1 Tumor quantitation: Number cores positive: 2 Total number of cores: 14 Periprostatic fat inv.: Not identified Seminal vesicle inv.: Not identified Perineural inv.: Not identified LVI: Not identified Initial therapy included Primary treatment - Deferred Therapy (active surveillance) 11/21 Recent labs included 03/24 3.0 08/22 8.0 not on finasteride, 09/21 5.1, 12/22 5.7, 04/25 9.5, 08/23 6.8, 11/23 6.4, 03/26 5.4, 07/24 6.3 finasteride every day, 03/27 5.3 6%, 07/25 4.5 7%, 03/27 8.4 Imaging - 12/[address] [facility]. Right mid posterior lateral transition zone. PiRADs 3. MICK negative 9mm - 10/24 MRI left lateral 6 mm PI-RADS 3 - 24gm prostate PFSH Medical History Anxiety COVID-19 vaccine series completed Prostate cancer Sleep apnea Elevated cholesterol HTN (hypertension) Inguinal hernia Elevated PSA Erectile dysfunction due to arterial insufficiency Herpes simplex Surgical History History of right inguinal hernia repair Hx of prostate biopsy History of esophagogastroduodenoscopy (EGD) H/O colonoscopy History of excision of mass History of hip replacement Family History Father Prostate cancer Heart attack, Onset Age: 65 Paternal Uncle Prostate cancer Social History (Updated 11/08/23 @ 09:36 by Zan Winchester PA-C) Housing: House Are you a primary cardiac care nurse to a significant other at home: No Alcohol intake: current Alcohol intake frequency: a few times a month Alcohol type: hard liquor Patient Tobacco Use Status: Never used Tobacco e-Cigarette/Vaping Use: Never Used Second Hand Smoke Exposure: No service: No Current occupational status: employed 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 Current occupational exposures/hazards: No Cognitive needs: No Hearing needs: No Vision needs: No Review of Systems Const All systems reviewed & are unremarkable except as noted in HPI and below Reports no additional complaints Resp Reports no additional complaints GI Reports no additional complaints Reports as per HPI Musc Reports no additional complaints Physical Exam Telemedicine evaluation Appropriate responses Regular breathing rate and rhythm HEENT Head: Yes normal to inspection Ears: hearing grossly normal bilaterally Eyes General: appearance normal, both eyes and all related structures Neck Neck: Yes normal visual inspection Chest Chest palpation & inspection: normal inspection of the chest Resp Effort & Inspection: normal respiratory effort and able to speak in complete sentences Telehealth Telehealth Telehealth Platform: [employer] Location of provider rendering services: practice address Location of patient: address on file Patient Identification confirmed using: Name, : Yes Telehealth method: video Patient verbally consented to treatment: Yes Patient verbally consented to billing insurance company: Yes Patient informed of any privacy concerns related to visit: Yes Minutes spent on Phone/Video with Pt.: 15 Assessment & Plan Assessment & Plan (1) Prostate cancer: Comment: November 2018 [place] 3 + 3 low-grade, low volume disease Active surveillance repeat biopsy 04/26 Code(s): C61 - Malignant neoplasm of prostate Category: Medical Plan Four month follow-up PSA Orders: Orders Prostate Specific Antigen 4 Months C61 - Malignant neoplasm of prostate Medications: Discontinued finasteride Discontinued Reason: Patient Completed Course 5 mg PO DAILY 90 days 90 tabs 2RF C61 - Malignant neoplasm of prostate Patient Instructions: Imaging studies, laboratory and physical exam results were discussed and reviewed in detail. No major barriers to patient understanding were identified. An opportunity to ask questions regarding the treatment plan was provided. All questions were answered. The patient expressed understanding and agreement with the above treatment plan. The patient is aware they should contact our office by phone for worsening of their current condition or the appearance of new urologic symptoms. Compliance is encouraged with any medications and followup testing that is ordered. It is a privilege to participate in the urologic care of your patient. If you have any questions or concerns regarding treatment for the above conditions, or other urologic issues, please do not hesitate to contact me. The office telephone contact is [phone]. This note is constructed using voice recognition software. While every effort has been made to ensure accuracy telemedicine physician errors may have been included. Yours sincerely, Dr Pierre Nayak MD, [facility] - Urology Providers of Expert, Compassionate Care for the Genitourinary System Coding Level of Care Code Tele Est Pt Level 3 (26576) Diagnoses Prostate cancer C61
== END 2023-11-02 12:40 | disposition home or self-care (01) ==
LOC: HO.HUSH 11:22
PROVIDERS: PCP Physician Assistant; Visit Provider Urology
DX: C61 Malignant neoplasm of prostate (principal)
CPT/HCPCS: 99213

== ENCOUNTER → 2023-11-02 11:21 | Outpatient (BNVA) | payer OTHER, SELFPAY | PROVIDERS: PCP Physician Assistant; Visit Provider Urology ==

== ENCOUNTER 2023-11-08 08:38 | Outpatient (AMB) | payer OTHER, SELFPAY ==
--- NOTE | 2023-11-08 09:14 | MHC.PC.OV ---
Vital Signs 11/08/23 09:15 Height 5 ft 10 in Weight 198 lb BMI 28.4 BP 124/88 Blood Pressure Location Lt brachial Position Sitting Pulse 78 Pulse Source Pulse Oximeter Pulse Oximetry (%) 95 Intake Visit Reasons: Annual PE/f/u HTN/ HLD Allergies allergy shots Allergy (Intermediate, Uncoded 11/08/23 09:31) rash SEASONAL ALLERGIES Allergy (Mild, Uncoded 11/08/23 09:31) RUNNY NOSE Medication List - Last Reconciled 11/08/23 by Zan Winchester PA-C acetaminophen ER 650 mg PO Q12H 14 days atorvastatin 20 mg PO DAILY 90 days azithromycin For 250 mg dose pack: take 500 mg today (day 1), then 250 mg for 4 days (days 2-5) PO losartan 50 mg PO DAILY losartan-hydrochlorothiazide 50-12.5 mg 1 tab PO DAILY meloxicam 15 mg PO DAILY 30 days multivitamin 1 tab PO DAILY omeprazole 20 mg PO DAILY sertraline 50 mg PO DAILY sildenafil 100 mg PO DAILY PRN 30 days sodium fluoride-pot nitrate 1.1-5 % PO tadalafil 10 mg PO DAILY PRN 30 days valacyclovir 500 mg PO Q12H 7 days Tobacco use date assessed: 08/10/22 Dental Screening Dental Screen Date: 03/12/23 HPI Annual PE/f/u HTN/ HLD HPI Details Patient is a 58-year-old male here for an annual physical. Patient has a past medical history significant for hypertension, hyperlipidemia, insomnia, prostate cancer. Concern--> reports he continues to suffer with sinus and nasal congestion. Has been on allergy injections in the past though had side effects. He reports [id number] allergy medications have not been helpful. Of note He is interested in trying prescription allergy medication and nasal spray. He also reports having some skin lesions on axilla and lower extremities that he would like to see a mig welder for. Does have an occupation that he gets a lot of sun exposure. Prostate cancer:? Patient followed by urologist, PSA have dropped. He has done brachy therapy and now PSAs are much lower. He denies any urinary symptoms and now off of finasteride and tamsulosin. .. .. Hypertension: Blood pressure today office acceptable. Continues on losartan -hydrochlorothiazide with good effect. . Hyperlipidemia: Most recent lipid panel showing much better control of his total cholesterol and LDL. Has been started on atorvastatin 20 mg without any side effect. Colon cancer screening: Up-to-date with colonoscopy-done in 2018 normal repeat 10 years Vaccine: Up-to-date with tetanus, COVID vaccine, Considering Shingrex, up-to-date with pneumonia vaccinex Laboratory Tests 11/14/22 03/06/23 07/26/23 06:13 10:21 06:13 Hgb 13.9 L Cholesterol 301 H Prostate Specific Ag 13.30 H 8.40 H 1.10 10/30/23 06:12 Hgb Cholesterol 207 H Prostate Specific Ag 1.69 [facility] Medical History Anxiety COVID-19 vaccine series completed Prostate cancer Sleep apnea Elevated cholesterol HTN (hypertension) Inguinal hernia Elevated PSA Erectile dysfunction due to arterial insufficiency Herpes simplex Surgical History History of right inguinal hernia repair Hx of prostate biopsy History of esophagogastroduodenoscopy (EGD) H/O colonoscopy History of excision of mass History of hip replacement Family History Father Prostate cancer Heart attack, Onset Age: 65 Paternal Uncle Prostate cancer Social History (Updated 11/08/23 @ 09:36 by Zan Winchester PA-C) Housing: House Are you a primary pediatric critical care nurse to a significant other at home: No Alcohol intake: current Alcohol intake frequency: a few times a month Alcohol type: hard liquor Patient Tobacco Use Status: Never used Tobacco e-Cigarette/Vaping Use: Never Used Second Hand Smoke Exposure: No service: No Current occupational status: employed 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 1. Little interest or pleasure in doing things: not at all 2. Feeling down, depressed, or hopeless: not at all 3. Trouble falling or staying asleep, or sleeping too much: several days 4. Feeling tired or having little energy: several days 5. Poor appetite or overeating: not at all 6. Feeling bad about yourself - or that you are a failure or have let yourself or your family down: not at all 7. Trouble concentrating on things, such as reading the newspaper or watching television: not at all 8. Moving or speaking so slowly that other people could have noticed. Or the opposite - being so fidgety or restless that you have been moving around a lot more than usual: not at all 9. Thoughts that you would be better off or of hurting yourself in some way: not at all Total score: 2 Depression Screening Interpretation: Negative Depression Screening Done: Yes 42485 - PHQ-9 Billing: Yes Source: Developed by Drs. Junior Breen, Kisha Valverde, Herbie Vela and colleagues, with an educational deloris from [employer]. Thrive Questionnaire Date Thrive assessed: 11/08/23 I am a: Patient What is your living situation today?: I have a steady place to live Within the past 12 months, did the food you bought not last and you didn't have the money to get more?: Never true Within the past 12 months, did you worry whether your food would run out before you got money to buy more?: Never true Do you have trouble paying for medicines?: I choose not to answer this question Do you have trouble getting transportation to medical appointments?: No Do you have trouble paying your heating and electricity bill?: No Do you have trouble taking care of your child, family member or friend?: No Do you have trouble with day-to-day activities such as bathing, preparing meals, shopping, managing finances, etc.?: No Are you currently unemployed and looking for a job?: No Are you interested in more education?: No Please select the resources that you would like help with: None Currently or been in a relationship where the following occur: No concerns reported THRIVE Score: 0 AUDIT C Alcohol Use Questionnaire (AUDIT-C) 1. How often do you have a drink containing alcohol?: 2-4 times a month 2. How many drinks containing alcohol do you have on a typical day when you are drinking?: 5 or 6 3. How often do you have six or more drinks on one occasion?: Monthly Total Score: 6 SABAS-7 AMB Questionnaire SABAS-7 Date SABAS - 7 assessed: 11/08/23 (Pt is on anti-anxiety medication ) Feeling nervous, anxious, or on edge: 0 = Not at all Not being able to stop or control worryin = Not at all Worrying too much about different things: 0 = Not at all Trouble relaxin = Not at all Being so restless that it is hard to sit still: 0 = Not at all Becoming easily annoyed or irritable: 0 = Not at all Feeling afraid as if something awful might happen: 0 = Not at all Total SABAS-7 score (0-4 normal; 5-9 mild; 10-14 moderate; 15-21 severe): 0 Source: Developed by Drs. Junior Breen, Kisha Valverde, Herbie Vela and colleagues, with an educational deloris from [employer]. SABAS-7 Assessment Billing SABAS-7 Assessment Tool: SABAS-7 Assessment 64529 Review of Systems Const Denies body aches, Denies chills, Denies excessive sweating, Denies fatigue, Denies fever(s) and Denies headache(s) Eyes Denies blurry vision ENT Denies dysphagia, Denies vertigo, Denies dizziness, Denies headache(s), Denies hearing loss and Denies tinnitus Card Denies chest pain, Denies chest pain with activity, Denies syncope, Denies irregular heart rhythm and Denies dyspnea Resp Denies chest congestion, Denies cough, Denies hemoptysis, Denies dyspnea and Denies wheezing GI Denies abdominal pain, Denies melena, Denies hematochezia, Denies coffee ground emesis, Denies dysphagia, Denies diarrhea, Denies nausea and Denies vomiting Denies difficulty urinating, Denies dysuria, Denies urinary frequency, Denies urinary hesitancy and Denies urinary urgency Musc Denies arthralgias, Denies limited range of motion, Denies muscle cramps and Denies muscle weakness Skin/Breast Denies rash and Denies skin ulcer Neuro Denies Abnormal speech present, Denies confusion, Denies vertigo, Denies dizziness, Denies syncope, Denies headache(s), Denies memory loss and Denies seizure-like activity Psych Denies anxiety, Denies confusion, Denies depression, Denies memory loss, Denies panic attacks and Denies paranoia Endo Denies excessive sweating, Denies fatigue, Denies flushing, Denies polydipsia and Denies polyuria Aller/Immun Denies wheezing Physical exam (Primary Care) Vital Signs: Last Vital Signs Pulse 78 11/08/23 09:15 BP 124/88 11/08/23 09:15 Pulse Ox 95 11/08/23 09:15 BMI result Body Mass Index 28.4 Tobacco/Smoking Status: Tobacco use Status Tobacco use date assessed 08/10/22 11/08/23 09:19 Patient Tobacco Use Status Never used Tobacco 11/08/23 09:19 e-Cigarette/Vaping Use Never Used 11/08/23 09:19 PHQ-9: PHQ-9 Score PHQ-9: Total score 2 11/08/23 09:19 Depression Screening Interpretation: Negative Thrive Assessment: Date of Thrive Assessment Date Thrive assessed 11/08/23 11/08/23 09:19 Currently or been in a relationship where the following occur: No concerns reported Const General: cooperative, comfortable, no acute distress, alert and awake; No confusion Orientation/consciousness: oriented to person, oriented to place, patient oriented x3 and No confusion HENMT Head: Yes normocephalic Ears: external ears normal and TM's normal bilaterally Face and sinus: No sinus tenderness Mouth: Normal oral and palatal mucosa present and tongue normal Teeth and gingiva: dentition normal and gingiva normal Throat: Yes posterior oropharynx normal, Yes tonsils normal and Yes uvula midline Eyes Conjunctivae: conjunctivae normal Sclerae: sclerae normal Pupils: Equal, round and reactive pupils present EOM: EOMs intact bilaterally Direct Ophthalmoscopy: No no photophobia Neck Neck: Yes no lymphadenopathy, No tender and Yes no JVD Thyroid: Thyroid normal Carotids: no bruits Chest Chest palpation & inspection: no tenderness Resp Effort & Inspection: normal respiratory effort, no audible wheezes, not labored and no stridor Auscultation: no crackles, no rales, no rhonchi and no wheezes Cardio Jugular venous distension: no JVD Rate: regular rate, not bradycardic and not tachycardic Rhythm: regular rhythm Bruits: no carotid bruits Peripheral pulses: Peripheral pulses 2+ throughout GI Inspection: Yes normal to inspection, No abdominal wall ecchymosis and No visible herniation Palpation (GI): Soft to palpation, nontender, no guarding, not rigid and No hepatosplenomegaly present Auscultation: normoactive bowel sounds General: Yes no CVA tenderness Back/Spine/Pelvis Back: no CVA tenderness and No back tenderness Cervical Spine: cervical ROM normal Thoracic/Lumbar Spine: thoracic and lumbar spine normal to inspection, straight leg raise negative bilaterally, No thoraco-lumbar ROM limited and No lumbar spinal tenderness Skin Lesions: no lesions Rashes: no rashes Wounds: no wounds Neuro General: oriented to person, oriented to place, patient oriented x3, CN's II-XI intact bilaterally and No confusion Cranial nerves: Yes Equal, round and reactive pupils present and Yes Normal accommodation reflex present Cognition (Neuro): normal cognition Speech: No Abnormal speech present Gait exam (Neuro): Normal gait present Motor exam (neuro): 5/5 motor strength present throughout Extrem Right upper extremity: full ROM; no cyanosis Left upper extremity: full ROM; no cyanosis Right lower extremity: no edema Left lower extremity: no edema Psych Appearance: grossly normal Mental Status: mental status grossly normal Affect: normal affect Attitude: cooperative Thought process: Normal thought process present Assessment and Plan Assessment & Plan (1) Annual physical exam: Code(s): Z00.00 - Encounter for general adult medical examination without abnormal findings (2) HTN (hypertension): Code(s): I10 - Essential (primary) hypertension Qualifiers: Hypertension type: primary hypertension Qualified Code(s): I10 - Essential (primary) hypertension Plan: Blood pressure today in office acceptable. He continues on losartan hydrochlorothiazide with good effect. if blood pressures at home remain above 140/90.. Goal blood pressure be below 140/90 (3) Hyperlipidemia: Code(s): E78.5 - Hyperlipidemia, unspecified Qualifiers: Hyperlipidemia type: mixed hyperlipidemia Qualified Code(s): E78.2 - Mixed hyperlipidemia Plan: Most recent fasting lipid panel is much better controlled. Total cholesterol now only borderline high. Will continue on current dose of atorvastatin 20 mg. Goal LDL to be below 130 (4) Prostate cancer: Comment: November 2018 [place] 3 + 3 low-grade, low volume disease Active surveillance repeat biopsy 04/26 Code(s): C61 - Malignant neoplasm of prostate Plan: Continues to follow Urology -was under active surveillance though Has done brachytherapy and PSAs are now much lower. He denies any urinary symptoms. He is now off of finasteride and tamsulosin. (5) Sinusitis: Code(s): J32.9 - Chronic sinusitis, unspecified Qualifiers: Sinusitis location: frontal Chronicity: subacute Qualified Code(s): J01.10 - Acute frontal sinusitis, unspecified Plan: Patient continues with chronic sinusitis. Has been on allergy injection therapy past though had side effect. Has tried [id number] Zyrtec and Claritin without much relief. He is willing to try Singulair in a new prescribe nasal spray for his chronic sinusitis (6) Skin lesion: Code(s): L98.9 - Disorder of the skin and subcutaneous tissue, unspecified Plan: HAS SOME RAISED HYPERPIGMENTED IRREGULAR SKIN LESIONS IN HIS AXILLARY REGION AND BEHIND HIS LEFT LOWER EXTREMITY. WOULD LIKE TO SEE A ACTIVATED SLUDGE OPERATOR FOR POSSIBLE EVALUATION BIOPSY Orders: Orders Microalbumin, Random (w Creat) Today I10 - Essential (primary) hypertension Comprehensive Cruger. Panel Fast Today I10 - Essential (primary) hypertension Complete Blood Count no Diff Today I10 - Essential (primary) hypertension Lipid Panel Today E78.2 - Mixed hyperlipidemia Referrals Dermatology Referral L98.9 - Disorder of the skin and subcutaneous tissue, unspecified Medications: New montelukast (Singulair) 10 mg PO DAILY 90 days 90 tabs 1RF J01.10 - Acute frontal sinusitis, unspecified ipratropium bromide administer into each nostril 2 sprays intranasal BID 30 days 15 mL 1RF J01.10 - Acute frontal sinusitis, unspecified Patient Instructions: Goal: LDL to remain below 130, blood pressure remain below 140/90 Barriers: Adherence to physical activity and healthy eating habits Coding Level of Care Code Est Pt Prev Care 40-64y(79610) Diagnoses Annual physical exam Z00.00 Primary hypertension I10 Hypertension type: primary hypertension Mixed hyperlipidemia E78.2 Hyperlipidemia type: mixed hyperlipidemia Prostate cancer C61 Subacute frontal sinusitis J01.10 Sinusitis location: frontal Chronicity: subacute Skin lesion L98.9 Additional Codes SABAS-7 Assessment Billing - SABAS-7 Assessment Tool: SABAS-7 Assessment [id number] ([id number])
[2023-11-08 09:15] VITALS: BP 124/88; PULSE 78; O2SAT 95; BMI 28.4
== END 2023-11-08 09:54 | disposition home or self-care (01) ==
PROVIDERS: PCP Physician Assistant; Visit Provider Physician Assistant
DX: Z00.00 Encounter for general adult medical examination without abnormal findings (principal); I10 Essential (primary) hypertension; E78.2 Mixed hyperlipidemia; C61 Malignant neoplasm of prostate; J01.10 Acute frontal sinusitis, unspecified; L98.9 Disorder of the skin and subcutaneous tissue, unspecified
CPT/HCPCS: 99396

== ENCOUNTER 2024-02-13 13:48 | Outpatient (AMB) | payer OTHER, SELFPAY ==
[2024-02-13 14:07] VITALS: BP 138/84; PULSE 87; O2SAT 97; BMI 28.9
--- NOTE | 2024-02-13 14:07 | MHC.PC.OV ---
Vital Signs 02/13/24 14:07 Height 5 ft 10 in Weight 201 lb 4 oz BMI 28.9 BP 138/84 Blood Pressure Location Lt brachial Position Sitting Pulse 87 Pulse Source Pulse Oximeter Pulse Oximetry (%) 97 Oxygen Delivery Method Room Air Intake Visit Reasons: Ear pain x 3 weeks Intake Note: Pt has been experiencing B/L ear pain. Sanforizer Required: No Accompanied by: Self / Same As Patient Allergies allergy shots Allergy (Intermediate, Uncoded 02/13/24 14:29) rash SEASONAL ALLERGIES Allergy (Mild, Uncoded 02/13/24 14:29) RUNNY NOSE Tobacco use date assessed: 02/13/24 Dental Screening Dental Screen Date: 03/12/23 HPI Ear pain x 3 weeks HPI Details The patient is a 58-year-old male presenting with eustachian tube dysfunction. He experienced blockage and pain in his right ear, with occasional radiation of pain down his neck and over the top of his head. This issue has been recurrent, with episodes of acute otitis media increasing in frequency over time. Initial treatment at urgent care involved antibiotics (amoxicillin), which provided temporary relief but the symptoms recurred. He reported minor throat discomfort and intermittent hearing issues, including a sensation of fullness in the ear and blocked hearing that fluctuates. The problem has been persistent despite previous antibiotic treatment, indicating possible chronicity. There were no associated symptoms of fever, but he feels a sensation of fullness and discomfort, particularly around the mastoid region. This history led to considerations of eustachian tube dysfunction as mucus may be impacting the function of the tube, thereby causing the described symptoms. [facility] Medical History Anxiety COVID-19 vaccine series completed Prostate cancer Sleep apnea Elevated cholesterol HTN (hypertension) Inguinal hernia Elevated PSA Erectile dysfunction due to arterial insufficiency Herpes simplex Surgical History History of right inguinal hernia repair Hx of prostate biopsy History of esophagogastroduodenoscopy (EGD) H/O colonoscopy History of excision of mass History of hip replacement Family History Father Prostate cancer Heart attack, Onset Age: 65 Paternal Uncle Prostate cancer Social History Housing: House Are you a primary neonatal intensive care nurse to a significant other at home: No Alcohol intake: current Alcohol intake frequency: a few times a month Alcohol type: hard liquor Patient Tobacco Use Status: Never used Tobacco e-Cigarette/Vaping Use: Never Used Second Hand Smoke Exposure: No service: No Current occupational status: employed 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 Current occupational exposures/hazards: No Cognitive needs: No Hearing needs: No Vision needs: No Questionnaire Thrive Questionnaire Date Thrive assessed: 11/06/23 I am a: Patient What is your living situation today?: I have a steady place to live Within the past 12 months, did the food you bought not last and you didn't have the money to get more?: Never true Within the past 12 months, did you worry whether your food would run out before you got money to buy more?: Never true Do you have trouble paying for medicines?: I choose not to answer this question Do you have trouble getting transportation to medical appointments?: No Do you have trouble paying your heating and electricity bill?: No Do you have trouble taking care of your child, family member or friend?: No Do you have trouble with day-to-day activities such as bathing, preparing meals, shopping, managing finances, etc.?: No Are you currently unemployed and looking for a job?: No Are you interested in more education?: No Please select the resources that you would like help with: None Currently or been in a relationship where the following occur: No concerns reported THRIVE Score: 0 SABAS-7 AMB Questionnaire SABAS-7 Date SABAS - 7 assessed: 11/08/23 (Pt is on anti-anxiety medication ) Source: Developed by Drs. Junior Breen, Kisha Valverde, Herbie Vela and colleagues, with an educational deloris from [employer]. Review of Systems Const Denies headache(s) Eyes Denies loss of vision ENT Denies vertigo, Denies dizziness, Denies headache(s) and Denies sore throat Card Denies chest pain, Denies leg edema and Denies lightheadedness Resp Denies cough, Denies hemoptysis and Denies wheezing GI Denies abdominal pain, Denies melena, Denies constipation, Denies diarrhea and Denies vomiting Denies dysuria, Denies urinary frequency and Denies urinary urgency Musc Denies arthralgias, Denies joint swelling, Denies numbness and Denies tingling Neuro Denies Abnormal speech present, Denies behavioral changes, Denies vertigo, Denies dizziness, Denies headache(s), Denies loss of vision, Denies memory loss, Denies numbness and Denies tingling Psych Denies anxiety, Denies behavioral changes, Denies depression, Denies memory loss and Denies panic attacks Rodo/Lymph Denies easy bleeding and Denies easy bruising Aller/Immun Denies wheezing Physical exam (Primary Care) Vital Signs: Last Vital Signs Pulse 87 02/13/24 14:07 BP 138/84 02/13/24 14:07 Pulse Ox 97 02/13/24 14:07 Oxygen Delivery Method Room Air 02/13/24 14:07 BMI result Body Mass Index 28.9 Tobacco/Smoking Status: Tobacco use Status Tobacco use date assessed 02/13/24 02/13/24 14:08 Patient Tobacco Use Status Never used Tobacco 02/13/24 14:08 e-Cigarette/Vaping Use Never Used 02/13/24 14:08 Thrive Assessment: Date of Thrive Assessment Date Thrive assessed 11/06/23 02/13/24 14:08 Currently or been in a relationship where the following occur: No concerns reported Const General: healthy appearing, no acute distress, alert and awake Nutritional Appearance: well nourished Orientation/consciousness: oriented to person, oriented to place and oriented to time HENMT Ears: TM's normal bilaterally General nose exam: Normal nasal mucous membranes and turbinates present Eyes Conjunctivae: conjunctivae normal Sclerae: sclerae normal Pupils: Equal, round and reactive pupils present Neck Neck: Yes no lymphadenopathy and Yes no JVD Thyroid: Thyroid normal Carotids: no bruits Resp Effort & Inspection: normal respiratory effort and not tachypneic Auscultation: no crackles, no rales, no rhonchi and no wheezes Cardio Rate: regular rate Rhythm: regular rhythm Heart sounds: no murmurs and normal S1 and S2 GI Palpation (GI): Soft to palpation, nontender, no hepatomegaly and no splenomegaly Auscultation: normal bowel sounds Skin General skin exam: no rashes or lesions noted and dry skin Neuro General: oriented to person, oriented to place and oriented to time Cranial nerves: Yes Equal, round and reactive pupils present Speech: No Abnormal speech present Gait exam (Neuro): Normal gait present Motor exam (neuro): no tremor noted Extrem Right upper extremity: full ROM Left upper extremity: full ROM Right lower extremity: full ROM; no edema Left lower extremity: full ROM; no edema Psych Mental Status: mental status grossly normal Speech and movement: Normal speech and movement present Affect: normal affect Attitude: cooperative Thought process: Normal thought process present Office Procedures Flu Questionnaire Does the patient have a severe egg allergy?: No Immunizations Fluarix Triv [id number] (PF) 45 mcg (15 mcg x 3)/0.5 mL IM syringe Performing Provider: Zan Winchester PA-C [facility] [place] [facility] Documented (not given) by: JAMIL Allen on 02/13/24 14:09 Reason Not Given: Patient Refused Coding Level of Care Code Est Pt Level 4 (11229) Diagnoses Dysfunction of right eustachian tube H69.91 Laterality: right Mastoiditis of right side H70.91 Laterality: right Assessment & Plan Assessment & Plan (1) Eustachian tube dysfunction: Code(s): H69.90 - Unspecified Eustachian tube disorder, unspecified ear Category: Medical Qualifiers: Laterality: right Qualified Code(s): H69.91 - Unspecified Eustachian tube disorder, right ear Plan: During the visit, we discussed the management of eustachian tube dysfunction and chronic otitis media. I explained the potential causes of the symptoms, which include blockage or dysfunction of the eustachian tube. Treatment options were discussed, including exercises to facilitate tube function and the use of medications to relieve congestion and prevent mucus build-up. I elaborated on the use of stronger antibiotics in the form of Augmentin due to recurring symptoms despite previous antibiotic therapy. Additionally, I emphasized on scheduling an ENT consultation to further evaluate the need for procedural intervention, especially given the chronic nature of the condition. Recommended exercises such as eustachian tube massages. Suggested nasal sprays e.g., saline, Flonase) and allergy medication e.g., loratadine or Zyrtec) for symptomatic relief and to help with mucus reduction. (2) Mastoiditis: Code(s): H70.90 - Unspecified mastoiditis, unspecified ear Category: Medical Qualifiers: Laterality: right Qualified Code(s): H70.91 - Unspecified mastoiditis, right ear Plan: As above some of his symptoms are somewhat concerning for mastoiditis as he has had more right posterior ear pain that radiates into his lateral neck. Prescribed Augmentin 875 mg, which includes amoxicillin with clavulanic acid to augment its effectivity against potential bacterial causes. Orders: Orders Influenza [id number] Immunization Today Z23 - Encounter for immunization
== END 2024-02-13 14:34 | disposition home or self-care (01) ==
PROVIDERS: PCP Physician Assistant; Visit Provider Physician Assistant
DX: H69.91 Unspecified Eustachian tube disorder, right ear (principal); H70.91 Unspecified mastoiditis, right ear; Z23 Encounter for immunization

== ENCOUNTER → 2024-02-13 13:48 | Outpatient (BNVA) | payer OTHER, SELFPAY | PROVIDERS: PCP Physician Assistant; Visit Provider Physician Assistant | DX: H69.91 Unspecified Eustachian tube disorder, right ear (principal); H70.91 Unspecified mastoiditis, right ear; Z28.21 Immunization not carried out because of patient refusal | CPT/HCPCS: 90471 ==

== ENCOUNTER 2024-02-19 06:13 | Outpatient (REF) | payer OTHER, SELFPAY ==
[2024-02-19 08:26] LABS: Prostate Specific Antigen 1.61 ng/mL (<0.05-4.0)
== END 2024-02-19 06:14 | disposition home or self-care (01) ==
LOC: HO.LAB 06:13
PROVIDERS: PCP Physician Assistant; Visit Provider Urology
DX: C61 Malignant neoplasm of prostate (principal); Z12.5 Encounter for screening for malignant neoplasm of prostate
CPT/HCPCS: 36415; 84153

== ENCOUNTER 2024-02-22 15:10 | Outpatient (AMB) | payer OTHER, SELFPAY ==
--- NOTE | 2024-02-22 15:14 | A.OFFVIS_ITS ---
Intake Visit Reasons: 4m/PSA Intake Note: Patient is present for 4M/PSA Urology Medication:SILDENAFIL,TADALAFIL Antibiotic Allergy:NONE Blood Thinner:NONE Plugger Worker Required: No Allergies allergy shots Allergy (Intermediate, Uncoded 02/22/24 15:14) rash SEASONAL ALLERGIES Allergy (Mild, Uncoded 02/22/24 15:14) RUNNY NOSE HPI Comments Details: Norberto is a pleasant male. He is a patient of Dr. Winchester. He is seen for the following urologic conditions - prostate cancer PSA stable Six-month follow-up Has 1 more visit to [facility] PSA 10/26 1.7, 02/25 1.6 Prostate cancer: November 2018 [place] 3 + 3 3 cores, repeat May 2020 [place] 3 + 3 - brachytherapy 05/26 Definitive therapy - brachytherapy 05/26 Dr. Keen [facility] - PSA angel 1.1 Prostate cancer was diagnosed November 2018 Dr Nayak . Diagnosis was reached by needle biopsy, for elevated PSA, PSA at diagnosis 5.9, size at TRUS 35gm. Last biopsy May 2020 Three cores positive none greater than 50% Continue active surveillance Initial biopsy November 201806/14 cores All Gl 3+3 5%,5%,10%,20% - . TNM Classification of Malignant Tumours (TNM) T1c. D'Aysha (NCCN) risk category is Low Risk (PSA< 10, Gl < 7, T1c) - Group 1 Repeat biopsy May 2020 Histologic type: Adenocarcinoma, acinar type Histologic grade: - Uziel score: 3+3=6 Number cores positive: 3 - RBL 5%, RBM 10%, RAL 40% - Total number of cores: 12 [facility] performed - 05/23 - Polaris risk score 4.5 - disease specific mortality 10 year 2.9% - Active surveillance recommended. 12/25 US MRI Fusion Biopsy Histologic type: Acinar adenocarcinoma Uziel score: 3+3=6 (K) 15%; 3+4=7 (L) 20% - matched MRI Grade group: 1 Tumor quantitation: Number cores positive: 2 Total number of cores: 14 Periprostatic fat inv.: Not identified Seminal vesicle inv.: Not identified Perineural inv.: Not identified LVI: Not identified Initial therapy included Primary treatment - Deferred Therapy (active surveillance) 11/21 Recent labs included 03/24 3.0 08/22 8.0 not on finasteride, 09/21 5.1, 12/22 5.7, 04/25 9.5, 08/23 6.8, 11/23 6.4, 03/26 5.4, 07/24 6.3 finasteride every day, 03/27 5.3 6%, 07/25 4.5 7%, 03/27 8.4 Imaging - 12/22 MRI at [facility]. Right mid posterior lateral transition zone. PiRADs 3. MICK negative 9mm - 10/24 MRI left lateral 6 mm PI-RADS 3 - 24gm prostate PFSH Medical History Anxiety COVID-19 vaccine series completed Prostate cancer Sleep apnea Elevated cholesterol HTN (hypertension) Inguinal hernia Elevated PSA Erectile dysfunction due to arterial insufficiency Herpes simplex Surgical History History of right inguinal hernia repair Hx of prostate biopsy History of esophagogastroduodenoscopy (EGD) H/O colonoscopy History of excision of mass History of hip replacement Family History Father Prostate cancer Heart attack, Onset Age: 65 Paternal Uncle Prostate cancer Social History Housing: House Are you a primary director of critical care to a significant other at home: No Alcohol intake: current Alcohol intake frequency: a few times a month Alcohol type: hard liquor Patient Tobacco Use Status: Never used Tobacco e-Cigarette/Vaping Use: Never Used Second Hand Smoke Exposure: No service: No Current occupational status: employed 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 Current occupational exposures/hazards: No Cognitive needs: No Hearing needs: No Vision needs: No Review of Systems Const Denies chills and Denies fever(s) Card Reports no additional complaints and Denies syncope Resp Denies cough GI Denies abdominal pain and Denies heartburn Reports as per HPI and Denies change in libido Neuro Denies syncope Psych Denies change in libido Endo Denies change in libido Physical Exam Const General: cooperative, healthy appearing, comfortable and no acute distress Orientation/consciousness: patient oriented x3 HEENT Face and sinus: Yes normal facial exam Mouth: moist mucous membranes Neck Neck: Yes normal visual inspection, Yes full ROM and Yes trachea midline Chest Chest palpation & inspection: normal inspection of the chest Resp Effort & Inspection: normal respiratory effort, able to speak in complete sentences and no respiratory distress GI Inspection: Yes normal to inspection Back/Spine/Pelvis Cervical Spine: normal cervical lordosis Thoracic/Lumbar Spine: thoracic and lumbar spine normal to inspection Skin General skin exam: no rashes or lesions noted Neuro General: patient oriented x3, gait normal, tone normal and moves all extremities Extrem General: Yes normal to inspection and Yes capillary refill normal Assessment & Plan Assessment & Plan (1) Prostate cancer: Comment: November 2018 [place] 3 + 3 low-grade, low volume disease Active surveillance repeat biopsy 04/26 Code(s): C61 - Malignant neoplasm of prostate Category: Medical Plan Six-month follow-up PSA Orders: Orders Prostate Specific Antigen 6 Months C61 - Malignant neoplasm of prostate Patient Instructions: Imaging studies, laboratory and physical exam results were discussed and reviewed in detail. No major barriers to patient understanding were identified. An opportunity to ask questions regarding the treatment plan was provided. All questions were answered. The patient expressed understanding and agreement with the above treatment plan. The patient is aware they should contact our office by phone for worsening of their current condition or the appearance of new urologic symptoms. Compliance is encouraged with any medications and followup testing that is ordered. It is a privilege to participate in the urologic care of your patient. If you have any questions or concerns regarding treatment for the above conditions, or other urologic issues, please do not hesitate to contact me. The office telephone contact is [phone]. This note is constructed using voice recognition software. While every effort has been made to ensure accuracy hospital staff pharmacist errors may have been included. Yours sincerely, Dr Pierre Nayak MD, [facility] - Urology Providers of Expert, Compassionate Care for the Genitourinary System Coding Level of Care Code Est Pt Level 3 (54011) Diagnoses Prostate cancer C61
== END 2024-02-22 15:57 | disposition home or self-care (01) ==
PROVIDERS: PCP Physician Assistant; Visit Provider Urology
DX: C61 Malignant neoplasm of prostate (principal)
CPT/HCPCS: 99213

== ENCOUNTER → 2024-02-22 15:10 | Outpatient (BNVA) | payer OTHER, SELFPAY | PROVIDERS: PCP Physician Assistant; Visit Provider Urology ==

== ENCOUNTER → 2024-06-02 10:07 | Outpatient (BNVA) | payer SELFPAY | PROVIDERS: PCP Physician Assistant; Visit Provider Physician Assistant Medical | DX: Z02.79 Encounter for issue of other medical certificate (principal) ==

== ENCOUNTER 2024-07-07 10:44 | Outpatient (REF) | payer OTHER, SELFPAY ==
[2024-07-07 11:27] LABS: Hematocrit 40.7 % (42.0-52.0); Hemoglobin 14.2 g/dl (14.0-18.0); Mean Corpuscular HGB Conc 34.9 g/dl (31.0-36.0); Mean Corpuscular Hemoglobin 29.1 pg (27.0-33.0); Mean Corpuscular Volume 83.4 fL (80.0-98.0); Platelet Count 216 X10*3/uL (160-400); Red Blood Count 4.88 X10*6/uL (4.60-5.80); Red Cell Distribution Width 12.8 % (11.0-16.0); White Blood Count 8.2 X10*3/uL (4.8-10.8)
--- OUTSIDE RECORDS SUMMARY | 2024-07-07 12:16 | XMS_ITS | Encounter Summary ---
Author Organization [facility] Address [address] [place] [address] Care Team Providers Care Eye Dropper Assembler Name Role Phone Zan Winchester Primary Care Provider [phone] Encounter Details Date Type Department Care Team (Late st Contact Info) Description 05/25/2023 [facility] Radiation Oncology [address] [place] [id number] Jagjit Keen MD [address] [place] [phone] Social History Tobacco Use Types Packs/Day Years Used Date Smoking Tobacco: Never Smokeless Tobacco: Never Alcohol Use Standard Drinks/Week Comments Yes 0 (1 standard drink = 0.6 oz pur e alcohol) couples weekends only Sex and Gender Information Value Date Recorded Sex Assigned at Male 03/15/2023 5:33 PM EST Legal Sex Male 10:41 AM EST Gender Identity Male 03/15/2023 5:33 PM EST Sexual Orientation Straight 03/15/2023 5: 33 PM EST documented as of this encounter Plan of Treatment Upcoming Encounters Date Type Department Care Team (Late st Contact Info) Description 09/12/2024 10:00 AM EDT Appointment [facility] Radiation Oncology [address] [place] [phone] Jagjit Keen MD [address] [place] [phone] 03/10/2025 10:00 AM EST Appointment [facility] Radiation Oncology [address] [place] [address] [place] [address] Jagjit Keen MD [address] [place] [address] documented as of this encounter Visit Diagnoses Not on filedocumented in this encounter Care Teams Eye Dropper Assembler Relationship Specialty Start Date End Date Zan Winchester PA [address] [place] [phone] PCP - General 03/06/23 documented as of this encounter
--- OUTSIDE RECORDS SUMMARY | 2024-07-07 12:16 | XMS_ITS | Clinical Summary ---
Author Organization [facility] Address [address] [place] [address] Care Team Providers Care Media Services Coordinator Name Role Phone Unavailable Primary Care Provider Unavailabl e Social History Tobacco Use Types Packs/Day Years Used Date Smoking Tobacco: Never Assessed Sex and Gender Information Value Date Recorded Sex Assigned at Not on file Legal Sex Male 6:54 PM EST Gender Identity Not on file Sexual Orientation Not on file Plan of Treatment Health Maintenance Due Date Last Done Comments Hepatitis C Virus Screening 1965 HIV Screening 07/04/1980 DTaP/Tdap/Td Vaccines (1 - Tdap) 07/04/1986 Hepatitis B Vaccines (1 of 3 - 19+ 3-dose series) 04/1986 Pneumococcal Vaccines 50+ (1 of 1 - PCV) 07/04/2017 Zoster (Shingles) Vaccine (1 of 2) 07/04/2017 COVID-19 Vaccine ( - 2023- season) 2023
--- OUTSIDE RECORDS SUMMARY | 2024-07-07 12:16 | XMS_ITS ---
Author Name [facility] Organization Unknown Care Team Organization Name Specialty Phone Email Start Date End [facility]
--- OUTSIDE RECORDS SUMMARY | 2024-07-07 12:16 | XMS_ITS | Clinical Summary ---
Author Organization [facility] Address [address] [place] [address] Care Team Providers Care Real Estate Valuer Name Role Phone Zan Winchester Primary Care Provider [phone] Allergies No known active allergies Medications atorvastatin (LIPITOR) 20 mg tablet Take 20 mg by mouth nightly. Active multivit with minerals/lutein (MULTIVITAMIN 50 PLUS ORAL) Take 1 tablet by mouth once a day. 3 Active omeprazole (PriLOSEC) 10 mg capsule Take 10 mg by mouth once a day. 2 Active sertraline (ZOLOFT) 50 mg tablet Take 50 mg by mouth once a day. 3 Active valACYclovir (VALTREX) 500 mg tablet Take 500 mg by mouth every 12 hours. X 7 days 4 Active finasteride (PROSCAR) 5 mg tablet Take 5 mg by mouth once a day. Active ibuprofen (MOTRIN) 200 mg tablet Take 200 mg by mouth every 6 hours as needed for pain. Active naproxen sodium (ALEVE) 220 mg tablet Take 220 mg by mouth once a day. Active losartan-hydroc hlorothiazide (HYZAAR) 50-12.5 mg per tablet Take 1 tablet by mouth once a day. 4 Active tamsulosin (FLOMAX) 0.4 mg capsule Take 2 capsules (0.8 mg total) by mouth once a day. 60 capsule 2 4 Active Additional Information Patient not taking.Reported on 08/31/2023 Active Problems No known active problems Immunizations Immunization Administration Dates Next Due Influenza, Injectable, Quadr ivalent, Contains Preservative 11/03/2017,10/20/2016,04/05/2016 Influenza, Injectable, Quadr ivalent, Preservative Free 11/27/2017 Pneumococcal conjugate PCV20 ,polysaccharide [id number] conjugate, adjuvant, PF (Prevnar 20) 08/10/2022 Tetanus Toxoid, Reduced Diph theria Toxoid, and Acellular Pertussis Vaccine, Adsorbed 04/24/2017 Tetanus and Diphtheria Toxoi ds, Adsorbed, Preservative Free, for Adult Use (5 Lf of Tetanus Toxoid and 2 Lf of Diphtheria Toxoid) 06/22/2012 Family History Medical History Relation Name Comments Alzheimer's disease Father Heart disease Mother Hyperlipidemia Mother Hypertension Mother Myocardial Infarction Mother Relation Name Status Comments Father Mother Social History Tobacco Use Types Packs/Day Years Used Date Smoking Tobacco: Never Smokeless Tobacco: Never Tobacco Cessation:Counseling Given: Not Answered Alcohol Use Standard Drinks/Week Comments Yes 0 (1 standard drink = 0.6 oz pur e alcohol) couples weekends only Sex and Gender Information Value Date Recorded Sex Assigned at Male 03/15/2023 5:33 PM EST Legal Sex Male 10:41 AM EST Gender Identity Male 03/15/2023 5:33 PM EST Sexual Orientation Straight 03/15/2023 5: 33 PM EST Last Filed Vital Signs Vital Sign Reading Time Taken Comments Blood Pressure 142/98 03/11/2024 1:27 PM EST Pulse 87 03/11/2024 1:27 PM EST Temperature 37 ??C (98.6 ??F) 03/11/2024 1:27 PM EST Respiratory Rate 18 03/11/2024 1:27 PM EST Oxygen Saturation 100% 03/11/2024 1:27 PM EST Inhaled Oxygen Concentration - - Weight 91.2 kg (201 lb) 03/11/2024 1:27 PM EST Height 177.8 cm (5' 10 ) 05/25/2023 6:05 AM EDT Body Mass Index 28.84 05/25/2023 6:05 AM EDT Plan of Treatment Upcoming Encounters Date Type Department Care Team (Late st Contact Info) Description 09/12/2024 10:00 AM EDT Appointment [facility] Radiation Oncology [address] [place] [address] - [place] [address] Jagjit Keen MD [address] [place] [address] 03/10/2025 10:00 AM EST Appointment [facility] Radiation Oncology [address] [place] [address] - [place] [address] Jagjit Keen MD [address] [place] [phone] Health Maintenance Due Date Last Done Comments Cologuard 1965 Colon Cancer Screening 1965 Colonoscopy 1967 FOBT / Fit Test 1965 HIV Screening 1965 Hepatitis C Screening 1965 Sigmoidoscopy 1965 Hepatitis B Vaccines (1 of 3 - 19+ 3-dose series) 07/04/1986 Zoster Vaccines (1 of 2) 07/04/1986 COVID-19 Vaccine (3 - Pfizer risk series) 08/11/2020 07/14/2020, 06/23/2020 Alcohol/Substance Use Screening 03/05/2024 Depression Screening and Follow-Up 03/05/2024 Social Drivers of Health Demetrice ual Screening 03/05/2024 Influenza Vaccine (Season Ended) 2024 11/27/2017, 11/03/2017, 10/20/2016, Additional history exists DTaP,Tdap,and Td Vaccines (2 - Td or Tdap) 04/24/2027 04/24/2017, 06/22/2012 RSV Vaccine (60+ years old a nd patients) (1 - 1-dose 75+ series) 07/04/2042 Pneumococcal Vaccine: 50+ Years Completed 3 Medical Devices Implanted Type Area Mincing Machine Operator Device Identifier Shelf Expiration Date Model / Serial / Lot Cs-1 Cesium 131 Seeds Implanted:Qty: 75 on 05/25/2023 by Jagjit Keen MD at [facility] CS-1 (REV 2) / / [id number] Description:Mincing Machine Operator is [employer] Insurance [employer] Advance Directives * Full Code (Latest Code Status on File) Date Activated Date Inactivated Comments 05/25/2023 6:28 AM 05/25/2023 3:12 PM Care Teams Real Estate Valuer Relationship Specialty Start Date End Date Zan Winchester PA [address] [place] [phone] PCP - General 03/06/23
--- OUTSIDE RECORDS SUMMARY | 2024-07-07 12:16 | XMS_ITS | Encounter Summary ---
Author Organization [facility] Address [address] [place] [address] Care Team Providers Care General Medical Practitioner Name Role Phone Unavailable Primary Care Provider Unavailabl e Encounter Details Date Type Department Care Team (Late st Contact Info) Description 03/14/2023 Scanned Document [facility] Urologic Surgery [address] [place] [address] Pierre Nayak MD [address] [place] [address] [place] [address] Social History Tobacco Use Types Packs/Day Years Used Date Smoking Tobacco: Never Assessed Sex and Gender Information Value Date Recorded Sex Assigned at Not on file Legal Sex Male 6:54 PM EST Gender Identity Not on file Sexual Orientation Not on file documented as of this encounter Plan of Treatment Not on file documented as of this encounter Visit Diagnoses Not on filedocumented in this encounter
--- OUTSIDE RECORDS SUMMARY | 2024-07-07 12:16 | XMS_ITS | Referral Summary ---
Author Organization [facility] Address [address] [place] [address] Care Team Providers Care Cook'S Assistant Name Role Phone Zan Winchester Primary Care Provider [phone] Allergies No known active allergies Medications atorvastatin [...] Preservative Free 11/27/2017 Pneumococcal conjugate PCV20 ,polysaccharide [id number] conjugate, adjuvant, PF (Prevnar 20) 08/10/2022 Tetanus Toxoid, Reduced Diph theria Toxoid, and Acellular Pertussis Vaccine, Adsorbed 04/24/2017 Tetanus and Diphtheria Toxoi ds, Adsorbed, Preservative Free, for Adult Use (5 Lf of Tetanus Toxoid and 2 Lf of Diphtheria Toxoid) 06/22/2012 Social History Tobacco Use Types Packs/Day Years [...] Info) Description 09/12/2024 10:00 AM EDT Appointment [facility] Radiation Oncology [address] [place] [address] - [place] [address] Jagjit Keen MD [address] [place] [address] 03/10/2025 10:00 AM EST Appointment [facility] Radiation Oncology [address] [facility] - [place] [address] Jagjit Keen MD [address] [place] [address] Medical Devices Implanted Type Area Counseling Director Device Identifier Shelf Expiration Date Model / Serial / Lot Cs-1 Cesium 131 Seeds Implanted:Qty: 75 on 05/25/2023 by Jagjit Keen MD at [facility] CS-1 (REV 2) / / [id number] Description:Counseling Director is [employer] Insurance HNE Advance Directives * Full Code (Latest Code Status on File) Date Activated Date Inactivated Comments 05/25/2023 6:28 AM 05/25/2023 3:12 PM Care Teams Cook'S Assistant Relationship Specialty Start Date End Date Zan Winchester PA [address] [place] [address] PCP - General 03/06/23
[2024-07-07 12:35] LABS: Alanine Aminotransferase 45 U/L (0-40); Albumin Level 4.5 g/dL (3.5-5.0); Alkaline Phosphatase 59 U/L (39-117); Aspartate Amino Transferase 41 U/L (5-37); Bilirubin Total 0.4 mg/dL (0.0-1.0); Blood Urea Nitrogen 15 mg/dL (9-16); Calcium 9.3 mg/dL (8.4-10.2); Carbon Dioxide 26 mmol/L (22-29); Chloride 109 mmol/L (96-108); Cholesterol 194 mg/dL (<200); Estimated Glomerular Filt Rate > 60; Glucose Fasting 89 mg/dL (60-99); Potassium 3.8 mmol/L (3.3-5.1); Sodium 142 mmol/L (135-145); Total Protein 7.5 g/dL (6.5-8.0); Triglycerides 374 mg/dL (<150)
[2024-07-07 12:48] LABS: Anion Gap 11 (12-20); HDL Cholesterol 39 mg/dL (>40); LDL Cholesterol Calculated 81 mg/dL (<100)
[2024-07-07 12:59] LABS: Creatinine Urine 95.97 mg/dL; Microalbum/Creatinine Ratio Ur 13.5 ug/mg cr (<30)
== END 2024-07-07 10:45 | disposition home or self-care (01) ==
LOC: HO.LAB 10:44
PROVIDERS: PCP Physician Assistant; Visit Provider Physician Assistant
DX: I10 Essential (primary) hypertension (principal); E78.2 Mixed hyperlipidemia
CPT/HCPCS: 36415; 80053; 80061; 82043; 82570; 85027

== ENCOUNTER 2024-07-10 14:54 | Outpatient (AMB) | payer OTHER, SELFPAY ==
--- NOTE | 2024-07-10 14:59 | MHC.PC.OV ---
Vital Signs 07/10/24 15:05 Height 5 ft 10 in Weight 198 lb BMI 28.4 BP 134/90 H Blood Pressure Location Lt brachial Position Sitting Pulse 75 Pulse Source Pulse Oximeter Temp 97.3 F Temp Source Temporal Artery Scan Pulse Oximetry (%) 93 Oxygen Delivery Method Room Air Intake Visit Reasons: f/u HTN/ HLD Manager Business Planning Required: No Accompanied by: Self / Same As Patient Allergies allergy shots Allergy (Intermediate, Uncoded 07/10/24 15:09) rash SEASONAL ALLERGIES Allergy (Mild, Uncoded 07/10/24 15:09) RUNNY NOSE Medication List - Last Reconciled 07/10/24 by Zan Winchester PA-C acetaminophen ER 650 mg PO Q12H 14 days atorvastatin 20 mg PO DAILY 90 days ipratropium bromide 2 sprays intranasal BID 30 days losartan 50 mg PO DAILY losartan-hydrochlorothiazide 50-12.5 mg 1 tab PO DAILY meloxicam 15 mg PO DAILY 30 days montelukast (Singulair) 10 mg PO DAILY 90 days multivitamin 1 tab PO DAILY omeprazole 20 mg PO DAILY sertraline 50 mg PO DAILY sildenafil 100 mg PO DAILY PRN 30 days sodium fluoride-pot nitrate 1.1-5 % PO tadalafil 10 mg PO DAILY PRN 30 days valacyclovir 500 mg PO Q12H 7 days Tobacco use date assessed: 07/10/24 Dental Screening Dental Screen Date: 07/10/24 Did you have a dental visit in the last 12 months?: Yes Did you have a dental problem in the last 6 months where you did not have access to dental care?: No Was dental information given to patient?: Patient has dentist HPI f/u HTN/ HLD HPI Details Patient is a 59-year-old male here for follow-up visit Patient has a past medical history significant for hypertension, hyperlipidemia, insomnia, prostate cancer. Prostate cancer:? Patient followed by urologist, PSA have dropped. He has done brachy therapy and now PSAs are much lower. He does report recently having some urinary urgency. He did discuss this with his urologist whom seems to believe this was related to his radiation treatment. PLAN: Will trial oxybutynin for spastic bladder .. .. Hypertension: Blood pressure today office acceptable. Continues on losartan -hydrochlorothiazide with good effect. . Hyperlipidemia: Most recent lipid panel showing much better control of his total cholesterol and LDL. Has been started on atorvastatin 20 mg without any side effect. Noted to have elevated liver enzymes. Labs--> noted elevated liver enzymes and most recent has. He did report drinking alcohol over the weekend. Will recheck his liver labs in a week Laboratory Tests 03/06/23 10/30/23 02/19/24 10:21 06:12 06:24 RBC Creatinine AST 29 ALT 28 Triglycerides 211 H LDL Cholesterol, C alc 122 H Prostate Specific Ag 1.69 1.61 Urine Microalbumin 07/07/24 07/07/24 11:00 11:02 RBC 4.88 Creatinine 0.97 AST 41 H ALT 45 H Triglycerides 374 H LDL Cholesterol, C alc 81 Prostate Specific Ag Urine Microalbumin 13.0 [facility] Medical History Anxiety COVID-19 vaccine series completed Prostate cancer Sleep apnea Elevated cholesterol HTN (hypertension) Inguinal hernia Elevated PSA Erectile dysfunction due to arterial insufficiency Herpes simplex Surgical History History of right inguinal hernia repair Hx of prostate biopsy History of esophagogastroduodenoscopy (EGD) H/O colonoscopy History of excision of mass History of hip replacement Family History Father Prostate cancer Heart attack, Onset Age: 65 Paternal Uncle Prostate cancer Social History Housing: House Are you a primary managed care manager to a significant other at home: No Alcohol intake: current Alcohol intake frequency: a few times a month Alcohol type: hard liquor Patient Tobacco Use Status: Never used Tobacco e-Cigarette/Vaping Use: Never Used Second Hand Smoke Exposure: No service: No Current occupational status: employed 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 1. Little interest or pleasure in doing things: not at all 2. Feeling down, depressed, or hopeless: not at all 3. Trouble falling or staying asleep, or sleeping too much: not at all 4. Feeling tired or having little energy: not at all 5. Poor appetite or overeating: not at all 6. Feeling bad about yourself - or that you are a failure or have let yourself or your family down: not at all 7. Trouble concentrating on things, such as reading the newspaper or watching television: not at all 8. Moving or speaking so slowly that other people could have noticed. Or the opposite - being so fidgety or restless that you have been moving around a lot more than usual: not at all 9. Thoughts that you would be better off or of hurting yourself in some way: not at all Total score: 0 Depression Screening Interpretation: Negative Depression Screening Done: Yes 05371 - PHQ-9 Billing: Yes Source: Developed by Drs. Junior Breen, Kisha Valverde, Herbie Vela and colleagues, with an educational deloris from [employer]. Thrive Questionnaire Date Thrive assessed: 07/10/24 I am a: Patient What is your living situation today?: I have a steady place to live Within the past 12 months, did the food you bought not last and you didn't have the money to get more?: Never true Within the past 12 months, did you worry whether your food would run out before you got money to buy more?: Never true Do you have trouble paying for medicines?: No Do you have trouble getting transportation to medical appointments?: No Do you have trouble paying your heating and electricity bill?: No Do you have trouble taking care of your child, family member or friend?: No Do you have trouble with day-to-day activities such as bathing, preparing meals, shopping, managing finances, etc.?: No Are you currently unemployed and looking for a job?: No Are you interested in more education?: No Please select the resources that you would like help with: None Currently or been in a relationship where the following occur: No concerns reported THRIVE Score: 0 AUDIT C Alcohol Use Questionnaire (AUDIT-C) 1. How often do you have a drink containing alcohol?: 2-3 times a week 2. How many drinks containing alcohol do you have on a typical day when you are drinking?: 3 or 4 3. How often do you have six or more drinks on one occasion?: Monthly Total Score: 6 SABAS-7 AMB Questionnaire SABAS-7 Date SABAS - 7 assessed: 07/10/24 (Pt is on anti-anxiety medication ) Feeling nervous, anxious, or on edge: 0 = Not at all Not being able to stop or control worryin = Not at all Worrying too much about different things: 0 = Not at all Trouble relaxin = Not at all Being so restless that it is hard to sit still: 0 = Not at all Becoming easily annoyed or irritable: 0 = Not at all Feeling afraid as if something awful might happen: 0 = Not at all Total SABAS-7 score (0-4 normal; 5-9 mild; 10-14 moderate; 15-21 severe): 0 Source: Developed by Drs. Junior Breen, Kisha Valverde, Herbie Vela and colleagues, with an educational deloris from [employer]. SABAS-7 Assessment Billing SABAS-7 Assessment Tool: SABAS-7 Assessment 21427 Review of Systems Const Denies headache(s) Eyes Denies loss of vision ENT Denies vertigo, Denies dizziness, Denies headache(s) and Denies sore throat Card Denies chest pain, Denies leg edema and Denies lightheadedness Resp Denies cough, Denies hemoptysis and Denies wheezing GI Denies abdominal pain, Denies melena, Denies constipation, Denies diarrhea and Denies vomiting Denies dysuria, Denies urinary frequency and Denies urinary urgency Musc Denies arthralgias, Denies joint swelling, Denies numbness and Denies tingling Neuro Denies Abnormal speech present, Denies behavioral changes, Denies vertigo, Denies dizziness, Denies headache(s), Denies loss of vision, Denies memory loss, Denies numbness and Denies tingling Psych Denies anxiety, Denies behavioral changes, Denies depression, Denies memory loss and Denies panic attacks Rodo/Lymph Denies easy bleeding and Denies easy bruising Aller/Immun Denies wheezing Physical exam (Primary Care) Vital Signs: Last Vital Signs Temp 97.3 F 07/10/24 15:05 Pulse 75 07/10/24 15:05 BP 134/90 H 07/10/24 15:05 Pulse Ox 93 07/10/24 15:05 Oxygen Delivery Method Room Air 07/10/24 15:05 BMI result Body Mass Index 28.4 Tobacco/Smoking Status: Tobacco use Status Tobacco use date assessed 07/10/24 07/10/24 15:06 Patient Tobacco Use Status Never used Tobacco 07/10/24 14:59 e-Cigarette/Vaping Use Never Used 07/10/24 14:59 PHQ-9: PHQ-9 Score PHQ-9: Total score 0 07/10/24 15:06 Depression Screening Interpretation: Negative Thrive Assessment: Date of Thrive Assessment Date Thrive assessed 07/10/24 07/10/24 15:06 Currently or been in a relationship where the following occur: No concerns reported Const General: healthy appearing, no acute distress, alert and awake Nutritional Appearance: well nourished Orientation/consciousness: oriented to person, oriented to place and oriented to time HENMT Ears: TM's normal bilaterally General nose exam: Normal nasal mucous membranes and turbinates present Eyes Conjunctivae: conjunctivae normal Sclerae: sclerae normal Pupils: Equal, round and reactive pupils present Neck Neck: Yes no lymphadenopathy and Yes no JVD Thyroid: Thyroid normal Carotids: no bruits Resp Effort & Inspection: normal respiratory effort and not tachypneic Auscultation: no crackles, no rales, no rhonchi and no wheezes Cardio Rate: regular rate Rhythm: regular rhythm Heart sounds: no murmurs and normal S1 and S2 GI Palpation (GI): Soft to palpation, nontender, no hepatomegaly and no splenomegaly Auscultation: normal bowel sounds Skin General skin exam: no rashes or lesions noted and dry skin Neuro General: oriented to person, oriented to place and oriented to time Cranial nerves: Yes Equal, round and reactive pupils present Speech: No Abnormal speech present Gait exam (Neuro): Normal gait present Motor exam (neuro): no tremor noted Extrem Right upper extremity: full ROM Left upper extremity: full ROM Right lower extremity: full ROM; no edema Left lower extremity: full ROM; no edema Psych Mental Status: mental status grossly normal Speech and movement: Normal speech and movement present Affect: normal affect Attitude: cooperative Thought process: Normal thought process present Coding Level of Care Code Est Pt Level 4 (27215) Diagnoses Urgency-frequency syndrome N32.81 Liver enzyme elevation R74.8 Prostate cancer C61 Primary hypertension I10 Hypertension type: primary hypertension Mixed hyperlipidemia E78.2 Hyperlipidemia type: mixed hyperlipidemia Additional Codes SABAS-7 Assessment Billing - SABAS-7 Assessment Tool: SABAS-7 Assessment 72227 ([id number]) PHQ-9 - 53030 - PHQ-9 Billing: Yes ([id number]) Assessment & Plan Assessment & Plan (1) Urgency-frequency syndrome: Code(s): N32.81 - Overactive bladder Category: Medical Plan: As per HPI patient has been experiencing urinary frequency over the last few months. These symptoms plan to be related to his radiation therapy side effect from prostate cancer. Will supply patient with low-dose oxybutynin to help with spasticity of his bladder. (2) Liver enzyme elevation: Code(s): R74.8 - Abnormal levels of other serum enzymes Category: Medical Plan: Noted elevated liver enzymes and most recent labs. He does admit to drinking alcohol though we can before his labs were taken. Will recheck his liver labs in 1 week. (3) Prostate cancer: Comment: November 2018 [place] 3 + 3 low-grade, low volume disease Active surveillance repeat biopsy 04/26 Code(s): C61 - Malignant neoplasm of prostate Category: Medical Plan: Patient followed by Urology and Radiation Oncology. Did undergo treatment with brachytherapy. Most recent PSAs has been stable. Of note as above has been having some urinary frequency of late. (4) HTN (hypertension): Code(s): I10 - Essential (primary) hypertension Category: Medical Qualifiers: Hypertension type: primary hypertension Qualified Code(s): I10 - Essential (primary) hypertension Plan: Patient's blood pressure acceptable today in office. Will continue current doses of antihypertensive medication. Goal blood pressures to remain below 140/90 (5) Hyperlipidemia: Code(s): E78.5 - Hyperlipidemia, unspecified Category: Medical Qualifiers: Hyperlipidemia type: mixed hyperlipidemia Qualified Code(s): E78.2 - Mixed hyperlipidemia Plan: Patient's most recent lipid panel showing excellent control of his total cholesterol and LDL. He continues on statin therapy without side effect. Goal LDL is to remain below 130 Orders: Orders Lipid Panel 6 Months E78.2 - Mixed hyperlipidemia Liver Panel 07/10/24 R74.8 - Abnormal levels of other serum enzymes Comprehensive [place]. Panel Fast 6 Months I10 - Essential (primary) hypertension Complete Blood Count no Diff 6 Months I10 - Essential (primary) hypertension Medications: New oxybutynin chloride ER 5 mg PO DAILY 30 tabs 1RF 30 days N32.81 - Overactive bladder Refilled ipratropium bromide administer into each nostril 2 sprays intranasal BID 15 mL 1RF 30 days J01.10 - Acute frontal sinusitis, unspecified Patient Instructions: Goal: Blood pressure to remain below 140/90, LDL to be below 130 Barriers: Adherence to physical activity and healthy eating habits
[2024-07-10 15:05] VITALS: BP 134/90; PULSE 75; TEMP 36.3; O2SAT 93; BMI 28.4
--- OUTSIDE RECORDS SUMMARY | 2024-07-10 15:32 | XMS_ITS | Clinical Summary ---
Author Organization [facility] Address [address] [place] [address] Care Team Providers Care Behavioral Health Care Manager Name Role Phone Unavailable Primary Care Provider [...]
--- OUTSIDE RECORDS SUMMARY | 2024-07-10 15:32 | XMS_ITS | Clinical Summary ---
Author Organization [facility] Address [address] [place] [address] Care Team Providers Care Business Objects Developer Name Role Phone Zan Winchester Primary Care Provider [phone] Allergies No known active allergies Medications atorvastatin [...] Preservative Free 11/27/2017 Pneumococcal conjugate PCV20 ,polysaccharide [id number] conjugate, adjuvant, PF (Prevnar 20) 08/10/2022 Tetanus [...] Info) Description 09/12/2024 10:00 AM EDT Appointment [facility] Radiation Oncology [address] [place] [address] - [place] [address] Jagjit Keen MD [address] [place] [address] 03/10/2025 10:00 AM EST Appointment [facility] Radiation Oncology [address] [place] [address] - [place] [address] Jagjit Keen MD [address] [place] [phone] Health Maintenance Due Date Last Done Comments [...] Completed 3 Medical Devices Implanted Type Area Store Standards Associate Device Identifier Shelf Expiration Date Model / Serial / Lot Cs-1 Cesium 131 Seeds Implanted:Qty: 75 on 05/25/2023 by Jagjit Keen MD at [facility] CS-1 (REV 2) / / [id number] Description:Store Standards Associate is [employer] Insurance H[employer] Advance Directives * Full Code (Latest Code Status on File) Date Activated Date Inactivated Comments 05/25/2023 6:28 AM 05/25/2023 3:12 PM Care Teams Business Objects Developer Relationship Specialty Start Date End Date Zan Winchester PA [address] [place] [address] PCP - General 03/06/23
--- OUTSIDE RECORDS SUMMARY | 2024-07-10 15:32 | XMS_ITS | Referral Summary ---
Author Organization [facility] Address [address] [place] [address] Care Team Providers Care Nodulizer Name Role Phone Zan Winchester Primary Care Provider [phone] Allergies No known active allergies Medications atorvastatin [...] Preservative Free 11/27/2017 Pneumococcal conjugate PCV20 ,polysaccharide [id number] conjugate, adjuvant, PF (Prevnar 20) 08/10/2022 Tetanus [...] Info) Description 09/12/2024 10:00 AM EDT Appointment [facility] Radiation Oncology [address] [place] [address] - [place] [address] Jagjit Keen MD [address] [place] [address] 03/10/2025 10:00 AM EST Appointment [facility] Radiation Oncology [address] [facility] [place] [address] Jagjit Keen MD [address] [place] [address] Medical Devices Implanted Type Area Security Alarm Installer Device Identifier Shelf Expiration Date Model / Serial / Lot Cs-1 Cesium 131 Seeds Implanted:Qty: 75 on 05/25/2023 by Jagjit Keen MD at [facility] CS-1 (REV 2) / / [id number] Description:Security Alarm Installer is [employer] Insurance [employer] Advance Directives * Full Code (Latest Code Status on File) Date Activated Date Inactivated Comments 05/25/2023 6:28 AM 05/25/2023 3:12 PM Care Teams Nodulizer Relationship Specialty Start Date End Date Zan Winchester PA [address] [place] [address] PCP - General 03/06/23
--- OUTSIDE RECORDS SUMMARY | 2024-07-10 15:32 | XMS_ITS | Encounter Summary ---
Author Organization [facility] Address [address] [place] [address] Care Team Providers Care Sharepoint Web Developer Name Role Phone Zan Winchester Primary Care Provider [phone] Encounter Details Date Type Department Care Team (Late st Contact Info) Description 05/25/2023 Education [facility] Radiation Oncology [address] [place] [phone] Jagjit Keen MD [address] [place] [address] Social History Tobacco Use Types Packs/Day Years [...] Info) Description 09/12/2024 10:00 AM EDT Appointment [facility] Radiation Oncology [address] [place] [address] Jagjit Keen MD [address] [place] [address] 03/10/2025 10:00 AM EST Appointment [facility] Radiation Oncology [address] [place] [address] [place] [address] Jagjit Keen MD [address] [place] [address] documented as of this encounter Visit Diagnoses Not on filedocumented in this encounter Care Teams Sharepoint Web Developer Relationship Specialty Start Date End Date Zan Winchester PA [address] [place] [address] PCP - General 03/06/23 documented as of this encounter
--- OUTSIDE RECORDS SUMMARY | 2024-07-10 15:32 | XMS_ITS | Encounter Summary ---
Author Organization [facility] Address [address] [place] [address] Care Team Providers Care Software Applications Developer Name Role Phone Unavailable Primary Care Provider Unavailabl e Encounter Details Date Type Department Care Team (Late st Contact Info) Description 03/14/2023 Scanned Document [facility] Urologic Surgery [address] [place] [address] Pierre Nayak MD [address] [place] [address] [place] [address] Social History Tobacco Use Types Packs/Day Years [...]
== END 2024-07-10 15:23 | disposition home or self-care (01) ==
LOC: HO.HMCH 14:55
PROVIDERS: PCP Physician Assistant; Visit Provider Physician Assistant
DX: N32.81 Overactive bladder (principal); R74.8 Abnormal levels of other serum enzymes; C61 Malignant neoplasm of prostate; I10 Essential (primary) hypertension; E78.2 Mixed hyperlipidemia

== ENCOUNTER → 2024-07-10 14:54 | Outpatient (BNVA) | payer OTHER, SELFPAY | PROVIDERS: PCP Physician Assistant; Visit Provider Physician Assistant | DX: N32.81 Overactive bladder (principal); R74.8 Abnormal levels of other serum enzymes; I10 Essential (primary) hypertension; E78.2 Mixed hyperlipidemia; C61 Malignant neoplasm of prostate | CPT/HCPCS: 96127 ==

== ENCOUNTER 2024-07-18 06:25 | Outpatient (REF) | payer OTHER, SELFPAY ==
--- OUTSIDE RECORDS SUMMARY | 2024-07-18 06:27 | XMS_ITS | Encounter Summary ---
Author Organization [facility] Address [address] [place] [address] Care Team Providers Care Technical Fellow Name Role Phone Zan Winchester Primary Care Provider [phone] Encounter Details Date Type Department Care Team (Late st Contact Info) Description 05/25/2023 Education [facility] Radiation Oncology [address] [place] [address] Jagjit Keen MD [address] [place] [address] Social History Tobacco Use Types Packs/Day Years [...] Info) Description 09/12/2024 10:00 AM EDT Appointment [facility] Radiation Oncology [address] [place] [address] Jagjit Keen MD [address] [place] [address] 03/10/2025 10:00 AM EST Appointment [facility] Radiation Oncology [address] [place] [address] [place] [address] Jagjit Keen MD [address] [place] [address] documented as of this encounter Visit Diagnoses Not on filedocumented in this encounter Care Teams Technical Fellow Relationship Specialty Start Date End Date Zan Winchester PA [address] [place] [address] PCP - General 03/06/23 documented as of this encounter
--- OUTSIDE RECORDS SUMMARY | 2024-07-18 06:27 | XMS_ITS | Referral Summary ---
Author Organization [facility] Address [address] [place] [address] Care Team Providers Care Haircutter Name Role Phone Zan Winchester Primary Care Provider [phone] Allergies No known active allergies Medications atorvastatin [...] Preservative Free 11/27/2017 Pneumococcal conjugate PCV20 ,polysaccharide [id number] conjugate, adjuvant, PF (Prevnar 20) 08/10/2022 Tetanus [...] Info) Description 09/12/2024 10:00 AM EDT Appointment [facility] Radiation Oncology [address] [place] [address] - [place] [address] Jagjit Keen MD [address] [place] [address] 03/10/2025 10:00 AM EST Appointment [facility] Radiation Oncology [address] [facility] - [place] [address] Jagjit Keen MD [address] [place] [address] Medical Devices Implanted Type Area Mirror Installer Device Identifier Shelf Expiration Date Model / Serial / Lot Cs-1 Cesium 131 Seeds Implanted:Qty: 75 on 05/25/2023 by Jagjit Keen MD at [facility] CS-1 (REV 2) / / [id number] Description:Mirror Installer is [employer] Insurance [employer] Advance Directives * Full Code (Latest Code Status on File) Date Activated Date Inactivated Comments 05/25/2023 6:28 AM 05/25/2023 3:12 PM Care Teams Haircutter Relationship Specialty Start Date End Date Zan Winchester PA [address] [place] [address] PCP - General 03/06/23
--- OUTSIDE RECORDS SUMMARY | 2024-07-18 06:27 | XMS_ITS | Clinical Summary ---
Author Organization [facility] Address [address] [place] [address] Care Team Providers Care Prints And Drawings Curator Name Role Phone Unavailable Primary Care Provider [...]
--- OUTSIDE RECORDS SUMMARY | 2024-07-18 06:27 | XMS_ITS | Clinical Summary ---
Author Organization [facility] Address [address] [place] [address] Care Team Providers Care Brush Holder Assembler Name Role Phone Zan Winchester Primary Care Provider [phone] Allergies No known active allergies Medications atorvastatin [...] Preservative Free 11/27/2017 Pneumococcal conjugate PCV20 ,polysaccharide [id number] conjugate, adjuvant, PF (Prevnar 20) 08/10/2022 Tetanus [...] Info) Description 09/12/2024 10:00 AM EDT Appointment [facility] Radiation Oncology [address] [place] [address] - [place] [address] Jagjit Keen MD [address] [place] [address] 03/10/2025 10:00 AM EST Appointment [facility] Radiation Oncology [address] [place] [address] - [place] [address] Jagjit Keen MD [address] [place] [address] Health Maintenance Due Date Last Done Comments [...] Completed 3 Medical Devices Implanted Type Area Loop Tender Device Identifier Shelf Expiration Date Model / Serial / Lot Cs-1 Cesium 131 Seeds Implanted:Qty: 75 on 05/25/2023 by Jagjit Keen MD at [facility] CS-1 (REV 2) / / [id number] Description:Loop Tender is [employer] Insurance HNE Advance Directives * Full Code (Latest Code Status on File) Date Activated Date Inactivated Comments 05/25/2023 6:28 AM 05/25/2023 3:12 PM Care Teams Brush Holder Assembler Relationship Specialty Start Date End Date Zan Winchester PA [address] [place] [address] PCP - General 03/06/23
--- OUTSIDE RECORDS SUMMARY | 2024-07-18 06:27 | XMS_ITS | Encounter Summary ---
Author Organization [facility] Address [address] [place] [address] Care Team Providers Care Metal Mockup Maker Name Role Phone Unavailable Primary Care Provider Unavailabl e Encounter Details Date Type Department Care Team (Late st Contact Info) Description 03/14/2023 Scanned Document [facility] Urologic Surgery [address] [place] [address] Pierre Nayak MD [address] [place] [address] [place] [address] Social History Tobacco Use Types Packs/Day Years [...]
[2024-07-18 07:51] LABS: Alanine Aminotransferase 41 U/L (0-40); Albumin Level 4.4 g/dL (3.5-5.0); Alkaline Phosphatase 57 U/L (39-117); Aspartate Amino Transferase 36 U/L (5-37); Bilirubin Direct 0.1 mg/dL (0.0-0.5); Bilirubin Total 0.5 mg/dL (0.0-1.0); Total Protein 7.5 g/dL (6.5-8.0)
== END 2024-07-18 06:26 | disposition home or self-care (01) ==
LOC: HO.LAB 06:25
PROVIDERS: PCP Physician Assistant; Visit Provider Physician Assistant
DX: R74.8 Abnormal levels of other serum enzymes (principal)
CPT/HCPCS: 36415; 80076

== ENCOUNTER 2024-08-22 06:04 | Outpatient (REF) | payer OTHER, SELFPAY ==
--- OUTSIDE RECORDS SUMMARY | 2024-08-22 06:07 | XMS_ITS | Clinical Summary ---
Author Organization [facility] Address [address] [place] [address] Care Team Providers Care Nurse Chemical Dependency Name Role Phone Unavailable Primary Care Provider [...]
== END 2024-08-22 06:05 | disposition home or self-care (01) ==
LOC: HO.LAB 06:04
PROVIDERS: PCP Physician Assistant; Visit Provider Urology
DX: C61 Malignant neoplasm of prostate (principal); Z12.5 Encounter for screening for malignant neoplasm of prostate
CPT/HCPCS: 36415; 84153

== ENCOUNTER 2024-08-29 11:26 | Outpatient (AMB) | payer OTHER, SELFPAY ==
--- NOTE | 2024-08-29 11:27 | A.OFFVIS_ITS ---
Intake Visit Reasons: 6m/PSA Intake Note: Patient is present for 4M/PSA Urology Medication:SILDENAFIL,TADALAFIL Antibiotic Allergy:NONE Blood Thinner:NONE psa 08/22/24 :1.00 Special Effects Makeup Artist Required: No Allergies allergy shots Allergy (Intermediate, Uncoded 07/10/24 15:09) rash SEASONAL ALLERGIES Allergy (Mild, Uncoded 07/10/24 15:09) RUNNY NOSE HPI Comments Details: Norberto is a pleasant male. He is a patient of Dr. Winchester. He is seen for the following urologic conditions - prostate cancer PSA remains stable Did have question of burning UA 2+ blood May use some finasteride if needed Continue q.6 month PSA PSA 10/26 1.7, 02/25 1.6, 08/27 1.0 Prostate cancer: November 2018 [place] 3 + 3 3 cores, repeat May 2020 [place] 3 + 3 - brachytherapy 05/26 Definitive therapy - brachytherapy 05/26 Dr. Keen [facility] - PSA angel 1.1 Prostate cancer was diagnosed November 2018 Dr Nayak . Diagnosis was reached by needle biopsy, for elevated PSA, PSA at diagnosis 5.9, size at TRUS 35gm. Last biopsy May 2020 Three cores positive none greater than 50% Continue active surveillance Initial biopsy November 201806/14 cores All Gl 3+3 5%,5%,10%,20% - . TNM Classification of Malignant Tumours (TNM) T1c. D'Aysha (NCCN) risk category is Low Risk (PSA< 10, Gl < 7, T1c) - Group 1 Repeat biopsy May 2020 Histologic type: Adenocarcinoma, acinar type Histologic grade: - Palestine score: 3+3=6 Number cores positive: 3 - RBL 5%, RBM 10%, RAL 40% - Total number of cores: 12 Prognosis Health Information Systems performed - 05/23 - [place] [employer] risk score 4.5 - disease specific mortality 10 year 2.9% - Active surveillance recommended. 12/25 US MRI Fusion Biopsy Histologic type: Acinar adenocarcinoma Palestine score: 3+3=6 (K) 15%; 3+4=7 (L) 20% - matched MRI Grade group: 1 Tumor quantitation: Number cores positive: 2 Total number of cores: 14 Periprostatic fat inv.: Not identified Seminal vesicle inv.: Not identified Perineural inv.: Not identified LVI: Not identified Initial therapy included Primary treatment - Deferred Therapy (active surveillance) 11/21 Recent labs included 03/24 3.0 08/22 8.0 not on finasteride, 09/21 5.1, 12/22 5.7, 04/25 9.5, 08/23 6.8, 11/23 6.4, 03/26 5.4, 07/24 6.3 finasteride every day, 03/27 5.3 6%, 07/25 4.5 7%, 03/27 8.4 Imaging - 12/22 MRI at [facility]. Right mid posterior lateral transition zone. PiRADs 3. MICK negative 9mm - 10/24 MRI left lateral 6 mm PI-RADS 3 - 24gm prostate PFSH Medical History Anxiety COVID-19 vaccine series completed Prostate cancer Sleep apnea Elevated cholesterol HTN (hypertension) Inguinal hernia Elevated PSA Erectile dysfunction due to arterial insufficiency Herpes simplex Surgical History History of right inguinal hernia repair Hx of prostate biopsy History of esophagogastroduodenoscopy (EGD) H/O colonoscopy History of excision of mass History of hip replacement Family History Father Prostate cancer Heart attack, Onset Age: 65 Paternal Uncle Prostate cancer Social History Housing: House Are you a primary healthcare facility administrator to a significant other at home: No Alcohol intake: current Alcohol intake frequency: a few times a month Alcohol type: hard liquor Patient Tobacco Use Status: Never used Tobacco e-Cigarette/Vaping Use: Never Used Second Hand Smoke Exposure: No service: No Current occupational status: employed 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 Current occupational exposures/hazards: No Cognitive needs: No Hearing needs: No Vision needs: No Review of Systems Const Denies chills and Denies fever(s) Card Reports no additional complaints and Denies syncope Resp Denies cough GI Denies abdominal pain and Denies heartburn Reports as per HPI and Denies change in libido Neuro Denies syncope Psych Denies change in libido Endo Denies change in libido Physical Exam Const General: cooperative, healthy appearing, comfortable and no acute distress Orientation/consciousness: patient oriented x3 HEENT Face and sinus: Yes normal facial exam Mouth: moist mucous membranes Neck Neck: Yes normal visual inspection, Yes full ROM and Yes trachea midline Chest Chest palpation & inspection: normal inspection of the chest Resp Effort & Inspection: normal respiratory effort, able to speak in complete se ntences and no respiratory distress GI Inspection: Yes normal to inspection Back/Spine/Pelvis Cervical Spine: normal cervical lordosis Thoracic/Lumbar Spine: thoracic and lumbar spine normal to inspection Skin General skin exam: no rashes or lesions noted Neuro General: patient oriented x3, gait normal, tone normal and moves all extremities Extrem General: Yes normal to inspection and Yes capillary refill normal Assessment & Plan Assessment & Plan (1) Prostate cancer: Comment: November 2018 Uziel 3 + 3 low-grade, low volume disease Active surveillance repeat biopsy 04/26 Code(s): C61 - Malignant neoplasm of prostate Category: Medical (2) 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 While every effort has been made to ensure accuracy sales service professional errors may have been included. Imaging studies, laboratory and physical exam results were discussed and reviewed in detail. No major barriers to patient understanding were identified. An opportunity to ask questions regarding the treatment plan was provided. All questions were answered. The patient expressed understanding and agreement with the above treatment plan. The patient is aware they should contact our office by phone for worsening of their current condition or the appearance of new urologic symptoms. Compliance is encouraged with any medications and followup testing that is ordered. It is a privilege to participate in the urologic care of your patient. If you have any questions or concerns regarding treatment for the above conditions, or other urologic issues, please do not hesitate to contact me. The office telephone contact is [phone]. Sincerely, Dr Pierre Nayak MD, [facility] - Urology Compassionate Specialist Care for the Genitourinary System Coding Level of Care Code Est Pt Level 3 (79321) Complex EM visit Add On G2211 Diagnoses Prostate cancer C61 Urgency-frequency syndrome N32.81
--- OUTSIDE RECORDS SUMMARY | 2024-08-29 12:41 | XMS_ITS | Clinical Summary ---
Author Organization [facility] Address [address] [place] [address] Care Team Providers Care Fleet Assistant Name Role Phone Unavailable Primary Care Provider [...]
== END 2024-08-29 12:23 | disposition home or self-care (01) ==
LOC: HO.HUSH 11:27
PROVIDERS: PCP Physician Assistant; Visit Provider Urology
DX: C61 Malignant neoplasm of prostate (principal); N32.81 Overactive bladder
CPT/HCPCS: 99213; G2211

== ENCOUNTER 2024-10-21 15:18 | Outpatient (AMB) | payer OTHER, SELFPAY ==
--- OUTSIDE RECORDS SUMMARY | 2024-10-21 16:35 | XMS_ITS | Clinical Summary ---
Author Organization [facility] Address [address] [place] [address] Care Team Providers Care Curriculum Facilitator Name Role Phone Zan Winchester Primary Care Provider [phone] Allergies No known active allergies Medications atorvastatin [...] 08/31/2023 Active Problems No known active problems Encounters Date Type Department Care Team Description 09/12/2024 10:00 AM EDT - 09/12/2024 11:59 PM EDT Hospital Encounter [facility] Radiation Oncology [address] [place] [address] - [place] [address] Jagjit Keen MD Prostate cancer (HCC) (Primary Dx) Discharge Disposition: Home or Self Care (01) 09/02/2024 2:50 AM EDT - 09/02/2024 11:59 PM EDT Hospital Encounter [facility] Radiation Oncology [address] [place] [address] - [place] [address] Discharge Disposition: Home or Self Care () from Last 3 Months Immunizations Immunization Administration Dates Next Due Influenza, Injectable, Quadr ivalent, Contains Preservative 11/03/2017,10/20/2016,04/05/2016 Influenza, Injectable, Quadr ivalent, Preservative Free 11/27/2017 Pneumococcal conjugate PCV20 ,polysaccharide [id number] conjugate, adjuvant, PF (Prevnar 20) 08/10/2022 Tetanus [...] 87 03/11/2024 1:27 PM EST Temperature 37 C (98.6 F) 03/11/2024 1:27 PM EST Respiratory Rate 18 [...] Care Team (Late st Contact Info) Description 03/10/2025 10:00 AM EST Appointment [facility] Radiation Oncology [address] [place] [address] - [place] [address] Jagjit Keen MD [address] [place] [address] Health Maintenance Due Date Last Done Comments [...] Health Demetrice ual Screening 03/05/2024 Influenza Vaccine (#1) 2024 8, 11/03/2017, 10/20/2016, Additional history exists DTaP,Tdap,and Td Vaccines (2 - Td or Tdap) 04/24/2027 04/24/2017, 06/22/2012 RSV Vaccine (60+ years old a nd patients) (1 - 1-dose 75+ series) 07/04/2042 Pneumococcal Vaccine: 50+ Years Completed 3 Medical Devices Implanted Type Area Television Script Writer Device Identifier Shelf Expiration Date Model / Serial / Lot Cs-1 Cesium 131 Seeds Implanted:Qty: 75 on 05/25/2023 by Jagjit Keen MD at [facility] CS-1 (REV 2) / / [id number] Description:Television Script Writer is [employer] Insurance HNE Advance Directives * Full Code (Latest Code Status on File) Date Activated Date Inactivated Comments 05/25/2023 6:28 AM 05/25/2023 3:12 PM Care Teams Curriculum Facilitator Relationship Specialty Start Date End Date Zan Winchester PA [address] [place] [address] PCP - General 03/06/23
--- OUTSIDE RECORDS SUMMARY | 2024-10-21 16:35 | XMS_ITS ---
Author Name [facility] Organization Unknown Care Team Organization Name Specialty Phone Email Start Date End [facility]
--- OUTSIDE RECORDS SUMMARY | 2024-10-21 16:35 | XMS_ITS | Patient Health Record ---
Author Organization [facility] Address [address] [place] [address] Care Team Providers Care Beauty Operator Apprentice Name Role Phone Junior Garcia Unavailable [phone] Reason For Referral No Information Plan Of Treatment No Information
--- OUTSIDE RECORDS SUMMARY | 2024-10-21 16:35 | XMS_ITS | Clinical Summary ---
Author Organization [facility] Address [address] [place] [address] Care Team Providers Care Sweater Operator Name Role Phone Unavailable Primary Care Provider [...]
== END 2024-10-21 15:31 | disposition home or self-care (01) ==
LOC: HO.HMGAL 15:18
PROVIDERS: PCP Physician Assistant; Visit Provider Registered Nurse Emergency
DX: J30.89 Other allergic rhinitis (principal)
CPT/HCPCS: 95117; 95165

== ENCOUNTER 2024-10-29 13:51 | Outpatient (AMB) | payer OTHER, SELFPAY ==
--- OUTSIDE RECORDS SUMMARY | 2024-10-29 14:43 | XMS_ITS | Clinical Summary ---
Author Organization [facility] Address [address] [place] [address] Care Team Providers Care Fire Protection Inspector Name Role Phone Zan Winchester Primary Care Provider [phone] Allergies No known active allergies Medications atorvastatin [...] - 09/12/2024 11:59 PM EDT Hospital Encounter [facility] Radiation Oncology [address] [place] [address] - [place] [address] Jagjit Keen MD Prostate cancer (HCC) (Primary Dx) Discharge Disposition: Home or Self Care (01) 09/02/2024 2:50 AM EDT - 09/02/2024 11:59 PM EDT Hospital Encounter [facility] Radiation Oncology [address] [place] [address] - [place] [address] Discharge Disposition: Home or Self Care () from Last 3 Months Immunizations Immunization Administration Dates Next Due Influenza, Injectable, Quadr ivalent, Contains Preservative 11/03/2017,10/20/2016,04/05/2016 Influenza, Injectable, Quadr ivalent, Preservative Free 11/27/2017 Pneumococcal conjugate PCV20 ,polysaccharide [id number] conjugate, adjuvant, PF (Prevnar 20) 08/10/2022 Tetanus [...] Info) Description 03/10/2025 10:00 AM EST Appointment [facility] Radiation Oncology [address] [place] [address] - [place] [address] Jagjit Keen MD [address] [place] [address] Health Maintenance Due Date Last Done [...] Completed 3 Medical Devices Implanted Type Area Hides Soaker Device Identifier Shelf Expiration Date Model / Serial / Lot Cs-1 Cesium 131 Seeds Implanted:Qty: 75 on 05/25/2023 by Jagjit Keen MD at [facility] CS-1 (REV 2) / / [id number] Description:Hides Soaker is [employer] Insurance HNE Advance Directives * Full Code (Latest Code Status on File) Date Activated Date Inactivated Comments 05/25/2023 6:28 AM 05/25/2023 3:12 PM Care Teams Fire Protection Inspector Relationship Specialty Start Date End Date Zan Winchester PA [address] [place] [address] PCP - General 03/06/23
--- OUTSIDE RECORDS SUMMARY | 2024-10-29 14:43 | XMS_ITS | Patient Health Record ---
Author Organization [facility] Address [address] [place] [address] Care Team Providers Care Chief Deputy Court Clerk Name Role Phone Junior Garcia Unavailable [phone] Reason For Referral No Information Plan Of Treatment No Information
--- OUTSIDE RECORDS SUMMARY | 2024-10-29 14:43 | XMS_ITS | Clinical Summary ---
Author Organization [facility] Address [address] [place] [address] Care Team Providers Care Brain Surgeon Name Role Phone Unavailable Primary Care Provider [...]
--- OUTSIDE RECORDS SUMMARY | 2024-10-29 14:44 | XMS_ITS | Encounter Summary ---
Author Organization [facility] Address [address] [place] [address] Care Team Providers Care Mergers And Acquisitions Associate Name Role Phone Zan Winchester Primary Care Provider [phone] Encounter Details Date Type Department Care Team (Late st Contact Info) Description 05/25/2023 Education [facility] Radiation Oncology [address] [place] [address] Jagjit Keen MD [address] [place] [address] Social History Tobacco Use Types Packs/Day Years [...] Info) Description 03/10/2025 10:00 AM EST Appointment [facility] Radiation Oncology [address] [place] [address] Jagjit Keen MD [address] [place] [address] documented as of this encounter Visit Diagnoses Not on filedocumented in this encounter Care Teams Mergers And Acquisitions Associate Relationship Specialty Start Date End Date Zan Winchester PA [address] [place] [address] PCP - General 03/06/23 documented as of this encounter
--- OUTSIDE RECORDS SUMMARY | 2024-10-29 14:44 | XMS_ITS | Encounter Summary ---
Author Organization [facility] Address [address] [place] [address] Care Team Providers Care Clay Modeler Name Role Phone Unavailable Primary Care Provider Unavailabl e Encounter Details Date Type Department Care Team (Late st Contact Info) Description 03/14/2023 Scanned Document [facility] Urologic Surgery [address] [place] [address] Pierre Nayak MD [address] [place] [address] [place] [address] Social History Tobacco Use Types Packs/Day Years [...]
== END 2024-10-29 13:53 | disposition home or self-care (01) ==
LOC: HO.HMGAL 13:51
PROVIDERS: PCP Physician Assistant; Visit Provider Registered Nurse Emergency
DX: J30.89 Other allergic rhinitis (principal)
CPT/HCPCS: 95117; 95165

== ENCOUNTER 2024-11-05 11:51 | Outpatient (AMB) | payer OTHER, SELFPAY ==
--- OUTSIDE RECORDS SUMMARY | 2024-11-05 14:23 | XMS_ITS | Clinical Summary ---
Author Organization [facility] Address [address] [place] [address] Care Team Providers Care Precision Lens Technician Name Role Phone Zan Winchester Primary Care Provider [phone] Allergies No known active allergies Medications atorvastatin [...] - 09/12/2024 11:59 PM EDT Hospital Encounter [facility] Radiation Oncology [address] [place] [address] - [place] [address] Jagjit Keen MD Prostate cancer (HCC) (Primary Dx) Discharge Disposition: Home or Self Care (01) 09/02/2024 2:50 AM EDT - 09/02/2024 11:59 PM EDT Hospital Encounter [facility] Radiation Oncology [address] [place] [address] - [place] [address] Discharge Disposition: Home or Self Care () from Last 3 Months Immunizations Immunization Administration Dates Next Due Influenza, Injectable, Quadr ivalent, Contains Preservative 11/03/2017,10/20/2016,04/05/2016 Influenza, Injectable, Quadr ivalent, Preservative Free 11/27/2017 Pneumococcal conjugate PCV20 ,polysaccharide [id number] conjugate, adjuvant, PF (Prevnar 20) 08/10/2022 Tetanus [...] Info) Description 03/10/2025 10:00 AM EST Appointment [facility] Radiation Oncology [address] [place] [address] - [place] [address] Jagjit Keen MD [address] [place] [address] Health Maintenance Due Date Last Done [...] Completed 3 Medical Devices Implanted Type Area Server Programmer Device Identifier Shelf Expiration Date Model / Serial / Lot Cs-1 Cesium 131 Seeds Implanted:Qty: 75 on 05/25/2023 by Jagjit Keen MD at [facility] CS-1 (REV 2) / / [id number] Description:Server Programmer is [employer] Insurance [employer] Advance Directives * Full Code (Latest Code Status on File) Date Activated Date Inactivated Comments 05/25/2023 6:28 AM 05/25/2023 3:12 PM Care Teams Precision Lens Technician Relationship Specialty Start Date End Date Zan Winchester PA [address] [place] [address] PCP - General 03/06/23
--- OUTSIDE RECORDS SUMMARY | 2024-11-05 14:23 | XMS_ITS | Encounter Summary ---
Author Organization [facility] Address [address] [place] [address] Care Team Providers Care Bushel Girl Name Role Phone Zan Winchester Primary Care Provider [phone] Encounter Details Date Type Department Care Team (Late st Contact Info) Description 05/25/2023 Education [facility] Radiation Oncology [address] [place] [address] Jagjit Keen MD [address] [place] [address] Social History Tobacco Use Types Packs/Day Years [...] Info) Description 03/10/2025 10:00 AM EST Appointment [facility] Radiation Oncology [address] [place] [address] Jagjit Keen MD [address] [place] [address] documented as of this encounter Visit Diagnoses Not on filedocumented in this encounter Care Teams Bushel Girl Relationship Specialty Start Date End Date Zan Winchester PA [address] [place] [address] PCP - General 03/06/23 documented as of this encounter
--- OUTSIDE RECORDS SUMMARY | 2024-11-05 14:23 | XMS_ITS | Clinical Summary ---
Author Organization [facility] Address [address] [place] [address] Care Team Providers Care Brief Writer Name Role Phone Unavailable Primary Care Provider [...]
--- OUTSIDE RECORDS SUMMARY | 2024-11-05 14:23 | XMS_ITS | Encounter Summary ---
Author Organization [facility] Address [address] [place] [address] Care Team Providers Care Dean Of Instruction Name Role Phone Unavailable Primary Care Provider Unavailabl e Encounter Details Date Type Department Care Team (Late st Contact Info) Description 03/14/2023 Scanned Document [facility] Urologic Surgery [address] [place] [address] Pierre Nayak MD [address] [place] [address] [place] [address] Social History Tobacco Use Types Packs/Day Years [...]
== END 2024-11-05 12:38 | disposition home or self-care (01) ==
LOC: HO.HMGAL 11:51
PROVIDERS: PCP Physician Assistant; Visit Provider Registered Nurse Emergency
DX: J30.89 Other allergic rhinitis (principal)
CPT/HCPCS: 95117; 95165

== ENCOUNTER 2024-11-12 11:14 | Outpatient (AMB) | payer OTHER, SELFPAY ==
--- OUTSIDE RECORDS SUMMARY | 2024-11-12 14:24 | XMS_ITS | Clinical Summary ---
Author Organization [facility] Address [address] [place] [address] Care Team Providers Care Centerless Grinder Name Role Phone Zan Winchester Primary Care Provider [phone] Allergies No known active allergies Medications atorvastatin [...] - 09/12/2024 11:59 PM EDT Hospital Encounter [facility] Radiation Oncology [address] [place] [address] - [place] [address] Jagjit Keen MD Prostate cancer (HCC) (Primary Dx) Discharge Disposition: Home or Self Care (01) 09/02/2024 2:50 AM EDT - 09/02/2024 11:59 PM EDT Hospital Encounter [facility] Radiation Oncology [address] [place] [address] - [place] [address] Discharge Disposition: Home or Self Care () from Last 3 Months Immunizations Immunization Administration Dates Next Due Influenza, Injectable, Quadr ivalent, Contains Preservative 11/03/2017,10/20/2016,04/05/2016 Influenza, Injectable, Quadr ivalent, Preservative Free 11/27/2017 Pneumococcal conjugate PCV20 ,polysaccharide [id number] conjugate, adjuvant, PF (Prevnar 20) 08/10/2022 Tetanus [...] Info) Description 03/10/2025 10:00 AM EST Appointment [facility] Radiation Oncology [address] [place] [address] - [place] [address] Jagjit Keen MD [address] [place] [address] Health Maintenance Due Date Last Done [...] Completed 3 Medical Devices Implanted Type Area Timber Mill Worker Device Identifier Shelf Expiration Date Model / Serial / Lot Cs-1 Cesium 131 Seeds Implanted:Qty: 75 on 05/25/2023 by Jagjit Keen MD at [facility] CS-1 (REV 2) / / [id number] Description:Timber Mill Worker is [employer] Insurance [employer] Advance Directives * Full Code (Latest Code Status on File) Date Activated Date Inactivated Comments 05/25/2023 6:28 AM 05/25/2023 3:12 PM Care Teams Centerless Grinder Relationship Specialty Start Date End Date Zan Winchester PA [address] [place] [address] PCP - General 03/06/23
--- OUTSIDE RECORDS SUMMARY | 2024-11-12 14:24 | XMS_ITS | Encounter Summary ---
Author Organization [facility] Address [address] [place] [address] Care Team Providers Care Credit Authorizer Name Role Phone Unavailable Primary Care Provider Unavailabl e Encounter Details Date Type Department Care Team (Late st Contact Info) Description 03/14/2023 Scanned Document [facility] Urologic Surgery [address] [place] [address] Pierre Nayak MD [address] [place] [address] [place] [address] Social History Tobacco Use Types Packs/Day Years [...]
--- OUTSIDE RECORDS SUMMARY | 2024-11-12 14:24 | XMS_ITS | Encounter Summary ---
Author Organization [facility] Address [address] [place] [address] Care Team Providers Care Seal Delivery Vehicle Officer Name Role Phone Zan Winchester Primary Care Provider [phone] Encounter Details Date Type Department Care Team (Late st Contact Info) Description 05/25/2023 Education [facility] Radiation Oncology [address] [place] [address] Jagjit Keen MD [address] [place] [address] Social History Tobacco Use Types Packs/Day Years [...] Info) Description 03/10/2025 10:00 AM EST Appointment [facility] Radiation Oncology [address] [place] [address] Jagjit Keen MD [address] [place] [address] documented as of this encounter Visit Diagnoses Not on filedocumented in this encounter Care Teams Seal Delivery Vehicle Officer Relationship Specialty Start Date End Date Zan Winchester PA [address] [place] [address] PCP - General 03/06/23 documented as of this encounter
--- OUTSIDE RECORDS SUMMARY | 2024-11-12 14:24 | XMS_ITS | Clinical Summary ---
Author Organization [facility] Address [address] [place] [address] Care Team Providers Care Political Aide Name Role Phone Unavailable Primary Care Provider [...] of 2) 07/04/2017 COVID-19 Vaccine ( - season) 2024
--- OUTSIDE RECORDS SUMMARY | 2024-11-12 14:24 | XMS_ITS | Patient Health Record ---
Author Organization [facility] Address [address] [place] [address] Care Team Providers Care Resident Director Name Role Phone Junior Garcia Unavailable [phone] Reason For Referral No Information Plan Of Treatment No Information
== END 2024-11-12 11:17 | disposition home or self-care (01) ==
LOC: HO.HMGAL 11:14
PROVIDERS: PCP Physician Assistant; Visit Provider Registered Nurse Emergency
DX: J30.89 Other allergic rhinitis (principal)
CPT/HCPCS: 95117; 95165

== ENCOUNTER 2024-11-19 11:17 | Outpatient (AMB) | payer OTHER, SELFPAY ==
--- OUTSIDE RECORDS SUMMARY | 2024-11-19 14:30 | XMS_ITS | Patient Health Record ---
Author Organization [facility] Address [address] [place] [address] Care Team Providers Care Gas Golf Cart Repairer Name Role Phone Junior Garcia Unavailable [phone] Reason For Referral No Information Plan Of Treatment No Information
--- OUTSIDE RECORDS SUMMARY | 2024-11-19 14:30 | XMS_ITS | Encounter Summary ---
Author Organization [facility] Address [address] [place] [address] Care Team Providers Care Mainspring Strip Inspector Name Role Phone Unavailable Primary Care Provider Unavailabl e Encounter Details Date Type Department Care Team (Late st Contact Info) Description 03/14/2023 Scanned Document [facility] Urologic Surgery [address] [place] [address] Pierre Nayak MD [address] [place] [address] [place] [address] Social History Tobacco Use Types Packs/Day Years [...]
--- OUTSIDE RECORDS SUMMARY | 2024-11-19 14:30 | XMS_ITS | Encounter Summary ---
Author Organization [facility] Address [address] [place] [address] Care Team Providers Care Market Research Intern Name Role Phone Zan Winchester Primary Care Provider [phone] Encounter Details Date Type Department Care Team (Late st Contact Info) Description 05/25/2023 Education [facility] Radiation Oncology [address] [place] [address] Jagjit Keen MD [address] [place] [address] Social History Tobacco Use Types Packs/Day Years [...] Info) Description 03/10/2025 10:00 AM EST Appointment [facility] Radiation Oncology [address] [place] [address] Jagjit Keen MD [address] [place] [address] documented as of this encounter Visit Diagnoses Not on filedocumented in this encounter Care Teams Market Research Intern Relationship Specialty Start Date End Date Zan Winchester PA [address] [place] [address] PCP - General 03/06/23 documented as of this encounter
--- OUTSIDE RECORDS SUMMARY | 2024-11-19 14:30 | XMS_ITS | Clinical Summary ---
Author Organization [facility] Address [address] [place] [address] Care Team Providers Care Installation Technician Name Role Phone Unavailable Primary Care Provider [...]
--- OUTSIDE RECORDS SUMMARY | 2024-11-19 14:30 | XMS_ITS | Clinical Summary ---
Author Organization [facility] Address [address] [place] [address] Care Team Providers Care Geomatics Professor Name Role Phone Zan Winchester Primary Care Provider [phone] Allergies No known active allergies Medications atorvastatin [...] - 09/12/2024 11:59 PM EDT Hospital Encounter [facility] Radiation Oncology [address] [place] [address] - [place] [address] Jagjit Keen MD Prostate cancer (HCC) (Primary Dx) Discharge Disposition: Home or Self Care (01) 09/02/2024 2:50 AM EDT - 09/02/2024 11:59 PM EDT Hospital Encounter [facility] Radiation Oncology [address] [place] [address] - [place] [address] Discharge Disposition: Home or Self Care () from Last 3 Months Immunizations Immunization Administration Dates Next Due Influenza, Injectable, Quadr ivalent, Contains Preservative 11/03/2017,10/20/2016,04/05/2016 Influenza, Injectable, Quadr ivalent, Preservative Free 11/27/2017 Pneumococcal conjugate PCV20 ,polysaccharide [id number] conjugate, adjuvant, PF (Prevnar 20) 08/10/2022 Tetanus [...] Info) Description 03/10/2025 10:00 AM EST Appointment [facility] Radiation Oncology [address] [place] [address] - [place] [address] Jagjit Keen MD [address] [place] [address] Health Maintenance Due Date Last Done [...] Completed 3 Medical Devices Implanted Type Area Closing Specialist Device Identifier Shelf Expiration Date Model / Serial / Lot Cs-1 Cesium 131 Seeds Implanted:Qty: 75 on 05/25/2023 by Jagjit Keen MD at [facility] CS-1 (REV 2) / / [id number] Description:Closing Specialist is [employer] Insurance [employer] Advance Directives * Full Code (Latest Code Status on File) Date Activated Date Inactivated Comments 05/25/2023 6:28 AM 05/25/2023 3:12 PM Care Teams Geomatics Professor Relationship Specialty Start Date End Date Zan Winchester PA [address] [place] [address] PCP - General 03/06/23
== END 2024-11-19 11:18 | disposition home or self-care (01) ==
LOC: HO.HMGAL 11:17
PROVIDERS: PCP Physician Assistant; Visit Provider Registered Nurse Emergency
DX: J30.89 Other allergic rhinitis (principal)
CPT/HCPCS: 95117; 95165

== ENCOUNTER 2024-11-26 12:47 | Outpatient (AMB) | payer OTHER, SELFPAY ==
--- OUTSIDE RECORDS SUMMARY | 2024-11-26 15:16 | XMS_ITS | Encounter Summary ---
Author Organization [facility] Address [address] [place] [address] Care Team Providers Care Fisher Name Role Phone Unavailable Primary Care Provider Unavailabl e Encounter Details Date Type Department Care Team (Late st Contact Info) Description 03/14/2023 Scanned Document [facility] Urologic Surgery [address] [place] [address] Pierre Nayak MD [address] [place] [address] [place] [address] Social History Tobacco Use Types Packs/Day Years [...]
--- OUTSIDE RECORDS SUMMARY | 2024-11-26 15:16 | XMS_ITS | Patient Health Record ---
Author Organization [facility] Address [address] [place] [address] Care Team Providers Care Train Caller Name Role Phone Junior Garcia Unavailable [phone] Reason For Referral No Information Plan Of Treatment No Information
--- OUTSIDE RECORDS SUMMARY | 2024-11-26 15:16 | XMS_ITS | Clinical Summary ---
Author Organization [facility] Address [address] [place] [address] Care Team Providers Care Railroad Worker Name Role Phone Unavailable Primary Care Provider [...]
--- OUTSIDE RECORDS SUMMARY | 2024-11-26 15:16 | XMS_ITS | Encounter Summary ---
Author Organization [facility] Address [address] [place] [address] Care Team Providers Care Director Of Employee Development Name Role Phone Zan Winchester Primary Care Provider [phone] Encounter Details Date Type Department Care Team (Late st Contact Info) Description 05/25/2023 Education [facility] Radiation Oncology [address] [place] [address] Jagjit Keen MD [address] [place] [address] Social History Tobacco Use Types Packs/Day Years [...] Info) Description 03/10/2025 10:00 AM EST Appointment [facility] Radiation Oncology [address] [place] [address] Jagjit Keen MD [address] [place] [address] documented as of this encounter Visit Diagnoses Not on filedocumented in this encounter Care Teams Director Of Employee Development Relationship Specialty Start Date End Date Zan Winchester PA [address] [place] [address] PCP - General 03/06/23 documented as of this encounter
--- OUTSIDE RECORDS SUMMARY | 2024-11-26 15:16 | XMS_ITS | Clinical Summary ---
Author Organization [facility] Address [address] [place] [address] Care Team Providers Care Manager Multicultural Name Role Phone Zan Winchester Primary Care Provider [phone] Allergies No known active allergies Medications atorvastatin [...] - 09/12/2024 11:59 PM EDT Hospital Encounter [facility] Radiation Oncology [address] [place] [address] - [place] [address] Jagjit Keen MD Prostate cancer (HCC) (Primary Dx) Discharge Disposition: Home or Self Care (01) 09/02/2024 2:50 AM EDT - 09/02/2024 11:59 PM EDT Hospital Encounter [facility] Radiation Oncology [address] [place] [address] - [place] [address] Discharge Disposition: Home or Self Care () from Last 3 Months Immunizations Immunization Administration Dates Next Due Influenza, Injectable, Quadr ivalent, Contains Preservative 11/03/2017,10/20/2016,04/05/2016 Influenza, Injectable, Quadr ivalent, Preservative Free 11/27/2017 Pneumococcal conjugate PCV20 ,polysaccharide [id number] conjugate, adjuvant, PF (Prevnar 20) 08/10/2022 Tetanus [...] Info) Description 03/10/2025 10:00 AM EST Appointment [facility] Radiation Oncology [address] [place] [address] - [place] [address] Jagjit Keen MD [address] [place] [address] Health Maintenance Due Date Last Done [...] Completed 3 Medical Devices Implanted Type Area Cinder Dump Crane Operator Device Identifier Shelf Expiration Date Model / Serial / Lot Cs-1 Cesium 131 Seeds Implanted:Qty: 75 on 05/25/2023 by Jagjit Keen MD at [facility] CS-1 (REV 2) / / [id number] Description:Cinder Dump Crane Operator is [employer] Insurance [employer] Advance Directives * Full Code (Latest Code Status on File) Date Activated Date Inactivated Comments 05/25/2023 6:28 AM 05/25/2023 3:12 PM Care Teams Manager Multicultural Relationship Specialty Start Date End Date Zan Winchester PA [address] [place] [address] PCP - General 03/06/23
== END 2024-11-26 12:51 | disposition home or self-care (01) ==
LOC: HO.HMGAL 12:47
PROVIDERS: PCP Physician Assistant; Visit Provider Registered Nurse Emergency
DX: J30.89 Other allergic rhinitis (principal)
CPT/HCPCS: 95117; 95165

== ENCOUNTER 2024-12-10 10:56 | Outpatient (AMB) | payer OTHER, SELFPAY | END 2024-12-10 10:59 | disposition home or self-care (01) | LOC: HO.HMGAL 10:56 | PROVIDERS: PCP Physician Assistant; Visit Provider Registered Nurse Emergency | DX: J30.89 Other allergic rhinitis (principal) | CPT/HCPCS: 95117; 95165 ==

== ENCOUNTER 2024-12-22 13:39 | Outpatient (AMB) | payer OTHER, SELFPAY ==
--- OUTSIDE RECORDS SUMMARY | 2024-12-22 16:48 | XMS_ITS | Clinical Summary ---
Author Organization [facility] Address [address] [place] [address] Care Team Providers Care Channel Supervisor Name Role Phone Unavailable Primary Care Provider [...] 07/04/2017 COVID-19 Vaccine ( - season) 2024 RSV Vaccine 50 years and old er and Patients (1 - 1-dose 75+ series) 07/04/2042
--- OUTSIDE RECORDS SUMMARY | 2024-12-22 16:48 | XMS_ITS | Clinical Summary ---
Author Organization [facility] Address [address] [place] [address] Care Team Providers Care Fuel Cell Test Engineer Name Role Phone Zan Winchester Primary Care Provider [phone] Allergies No known active allergies Medications atorvastatin [...] Preservative Free 11/27/2017 Pneumococcal conjugate PCV20 ,polysaccharide [id number] conjugate, adjuvant, PF (Prevnar 20) 08/10/2022 Tetanus [...] Info) Description 03/10/2025 10:00 AM EST Appointment [facility] Radiation Oncology [address] [place] [address] - [place] [address] Jagjit Keen MD [address] [place] [address] Health Maintenance Due Date Last Done Comments [...] Completed 3 Medical Devices Implanted Type Area Truck Rental Manager Device Identifier Shelf Expiration Date Model / Serial / Lot Cs-1 Cesium 131 Seeds Implanted:Qty: 75 on 05/25/2023 by Jagjit Keen MD at [facility] CS-1 (REV 2) / / [id number] Description:Truck Rental Manager is [employer] Insurance [id number] Advance Directives * Full Code (Latest Code Status on File) Date Activated Date Inactivated Comments 05/25/2023 6:28 AM 05/25/2023 3:12 PM Care Teams Fuel Cell Test Engineer Relationship Specialty Start Date End Date Zan Winchester PA [address] [place] [address] PCP - General 03/06/23
--- OUTSIDE RECORDS SUMMARY | 2024-12-22 16:49 | XMS_ITS | Encounter Summary ---
Author Organization [facility] Address [address] [place] [address] Care Team Providers Care Cable Tool Driller Name Role Phone Zan Winchester Primary Care Provider [phone] Encounter Details Date Type Department Care Team (Late st Contact Info) Description 05/25/2023 Education [facility] Radiation Oncology [address] [place] [address] Jagjit Keen MD [address] [place] [address] Social History Tobacco Use Types Packs/Day Years [...] Info) Description 03/10/2025 10:00 AM EST Appointment [facility] Radiation Oncology [address] [place] [address] Jagjit Keen MD [address] [place] [address] documented as of this encounter Visit Diagnoses Not on filedocumented in this encounter Care Teams Cable Tool Driller Relationship Specialty Start Date End Date Zan Winchester PA [address] [place] [address] PCP - General 03/06/23 documented as of this encounter
--- OUTSIDE RECORDS SUMMARY | 2024-12-22 16:49 | XMS_ITS | Encounter Summary ---
Author Organization [facility] Address [address] [place] [address] Care Team Providers Care Make Up Editor Name Role Phone Unavailable Primary Care Provider Unavailabl e Encounter Details Date Type Department Care Team (Late st Contact Info) Description 03/14/2023 Scanned Document [facility] Urologic Surgery [address] [place] [address] Pierre Nayak MD [address] [place] [address] [place] [address] Social History Tobacco Use Types Packs/Day Years [...]
--- OUTSIDE RECORDS SUMMARY | 2024-12-22 16:49 | XMS_ITS | Patient Health Record ---
Author Organization [facility] Address [address] [place] [address] Care Team Providers Care Music Librarian Name Role Phone Junior Garcia Unavailable [phone] Reason For Referral No Information Plan Of Treatment No Information
== END 2024-12-22 13:39 | disposition home or self-care (01) ==
LOC: HO.HMGAL 13:39
PROVIDERS: PCP Physician Assistant; Visit Provider Registered Nurse Emergency
DX: J30.89 Other allergic rhinitis (principal)
CPT/HCPCS: 95117; 95165

== ENCOUNTER 2024-12-31 15:42 | Outpatient (AMB) | payer OTHER, SELFPAY ==
--- OUTSIDE RECORDS SUMMARY | 2024-12-31 19:54 | XMS_ITS | Clinical Summary ---
Author Organization [facility] Address [address] [place] [address] Care Team Providers Care Brushing Machine Operator Name Role Phone Unavailable Primary Care [...]
--- OUTSIDE RECORDS SUMMARY | 2024-12-31 19:54 | XMS_ITS | Clinical Summary ---
Author Organization [facility] Address [address] [place] [address] Care Team Providers Care Attractions Associate Name Role Phone Zan Winchester Primary Care Provider [phone] Allergies No known active allergies Medications atorvastatin [...] Preservative Free 11/27/2017 Pneumococcal conjugate PCV20 ,polysaccharide [id number] conjugate, adjuvant, PF (Prevnar 20) 08/10/2022 Tetanus [...] Info) Description 03/10/2025 10:00 AM EST Appointment [facility] Radiation Oncology [address] [place] [address] - [place] [address] Jagjit Keen MD [address] [place] [address] Health Maintenance Due Date Last Done Comments [...] Completed 3 Medical Devices Implanted Type Area Tag Marker Device Identifier Shelf Expiration Date Model / Serial / Lot Cs-1 Cesium 131 Seeds Implanted:Qty: 75 on 05/25/2023 by Jagjit Keen MD at [facility] CS-1 (REV 2) / / [id number] Description:Tag Marker is [employer] Insurance [id number] Advance Directives * Full Code (Latest Code Status on File) Date Activated Date Inactivated Comments 05/25/2023 6:28 AM 05/25/2023 3:12 PM Care Teams Attractions Associate Relationship Specialty Start Date End Date Zan Winchester PA [address] [place] [address] PCP - General 03/06/23
--- OUTSIDE RECORDS SUMMARY | 2024-12-31 19:55 | XMS_ITS | Encounter Summary ---
Author Organization [facility] Address [address] [place] [address] Care Team Providers Care Moving Picture Producer Name Role Phone Unavailable Primary Care Provider Unavailabl e Encounter Details Date Type Department Care Team (Late st Contact Info) Description 03/14/2023 Scanned Document [facility] Urologic Surgery [address] [place] [address] Pierre Nayak MD [address] [place] [address] [place] [address] Social History Tobacco Use Types Packs/Day Years [...]
--- OUTSIDE RECORDS SUMMARY | 2024-12-31 19:55 | XMS_ITS | Patient Health Record ---
Author Organization [facility] Address [address] [place] [address] Care Team Providers Care Account Analyst Name Role Phone Junior Garcia Unavailable [phone] Reason For Referral No Information Plan Of Treatment No Information
--- OUTSIDE RECORDS SUMMARY | 2024-12-31 19:55 | XMS_ITS | Encounter Summary ---
Author Organization [facility] Address [address] [place] [address] Care Team Providers Care Business Performance Analyst Name Role Phone Zan Winchester Primary Care Provider [phone] Encounter Details Date Type Department Care Team (Late st Contact Info) Description 05/25/2023 Education [facility] Radiation Oncology [address] [place] [address] Jagjit Keen MD [address] [place] [address] Social History Tobacco Use Types Packs/Day Years [...] Info) Description 03/10/2025 10:00 AM EST Appointment [facility] Radiation Oncology [address] [place] [address] Jagjit Keen MD [address] [place] [address] documented as of this encounter Visit Diagnoses Not on filedocumented in this encounter Care Teams Business Performance Analyst Relationship Specialty Start Date End Date Zan Winchester PA [address] [place] [address] PCP - General 03/06/23 documented as of this encounter
== END 2024-12-31 15:42 | disposition home or self-care (01) ==
LOC: HO.HMGAL 15:42
PROVIDERS: PCP Physician Assistant; Visit Provider Registered Nurse Emergency
DX: J30.89 Other allergic rhinitis (principal)
CPT/HCPCS: 95117; 95165

== ENCOUNTER 2025-01-07 10:23 | Outpatient (AMB) | payer OTHER, SELFPAY ==
--- OUTSIDE RECORDS SUMMARY | 2025-01-07 12:07 | XMS_ITS | Encounter Summary ---
Author Organization [facility] Address [address] [place] [address] Care Team Providers Care Body Trimmer Upholsterer Name Role Phone Zan Winchester Primary Care Provider [phone] Encounter Details Date Type Department Care Team (Late st Contact Info) Description 05/25/2023 Education [facility] Radiation Oncology [address] [place] [address] Jagjit Keen MD [address] [place] [address] Social History Tobacco Use Types Packs/Day Years [...] 10:00 AM EST Appointment [facility] Radiation Oncology [address] [place] [address] Jagjit Keen MD [address] [place] [address] documented as of this encounter Visit Diagnoses Not on filedocumented in this encounter Care Teams Body Trimmer Upholsterer Relationship Specialty Start Date End Date Zan Winchester PA [address] [place] [address] PCP - General 03/06/23 documented as of this encounter
--- OUTSIDE RECORDS SUMMARY | 2025-01-07 12:07 | XMS_ITS | Patient Health Record ---
Author Organization [facility] Address [address] [place] [address] Care Team Providers Care Farm Hand Name Role Phone Junior Garcia Unavailable [phone] Reason For Referral No Information Plan Of Treatment No Information
--- OUTSIDE RECORDS SUMMARY | 2025-01-07 12:07 | XMS_ITS | Clinical Summary ---
Author Organization [facility] Address [address] [place] [address] Care Team Providers Care Irrigator Overhead Name Role Phone Zan Winchester Primary Care Provider [phone] Allergies No known active allergies Medications atorvastatin [...] Preservative Free 11/27/2017 Pneumococcal conjugate PCV20 ,polysaccharide [id number] conjugate, adjuvant, PF (Prevnar 20) 08/10/2022 Tetanus [...] Info) Description 03/10/2025 10:00 AM EST Appointment [facility] Radiation Oncology [address] [place] [address] - First [place] [address] Jagjit Keen MD [address] [place] [address] Health Maintenance Due Date Last Done Comments [...] - Td or Tdap) 04/24/2027 04/24/2017, 06/22/2012 Pneumococcal Vaccine: 50+ Years Completed 3 Medical Devices Implanted Type Area Electro Mechanical Solar Technician Device Identifier Shelf Expiration Date Model / Serial / Lot Cs-1 Cesium 131 Seeds Implanted:Qty: 75 on 05/25/2023 by Jagjit Keen MD at [facility] CS-1 (REV 2) / / [id number] Description:Electro Mechanical Solar Technician is [employer] Insurance Advance Directives * Full Code (Latest Code Status on File) Date Activated Date Inactivated Comments 05/25/2023 6:28 AM 05/25/2023 3:12 PM Care Teams Irrigator Overhead Relationship Specialty Start Date End Date Zan Winchester PA [address] [place] [address] PCP - General 03/06/23
--- OUTSIDE RECORDS SUMMARY | 2025-01-07 12:07 | XMS_ITS | Clinical Summary ---
Author Organization [facility] Address [address] [place] [address] Care Team Providers Care Freelance Designer Name Role Phone Unavailable Primary Care Provider [...]
--- OUTSIDE RECORDS SUMMARY | 2025-01-07 12:07 | XMS_ITS | Encounter Summary ---
Author Organization [facility] Address [address] [place] [address] Care Team Providers Care Fabric Inspector Name Role Phone Unavailable Primary Care Provider Unavailabl e Encounter Details Date Type Department Care Team (Late st Contact Info) Description 03/14/2023 Scanned Document [facility] Urologic Surgery [address] [place] [address] Pierre Nayak MD [address] [place] [address] [place] [address] Social History Tobacco Use Types Packs/Day Years [...]
== END 2025-01-07 10:24 | disposition home or self-care (01) ==
LOC: HO.HMGAL 10:23
PROVIDERS: PCP Physician Assistant; Visit Provider Registered Nurse Emergency
DX: J30.89 Other allergic rhinitis (principal)
CPT/HCPCS: 95117; 95165

== ENCOUNTER 2025-01-14 14:37 | Outpatient (AMB) | payer OTHER, SELFPAY ==
--- OUTSIDE RECORDS SUMMARY | 2025-01-14 18:05 | XMS_ITS | Clinical Summary ---
Author Organization [facility] Address [address] [place] [address] Care Team Providers Care Rouge Sifter Name Role Phone Zan Winchester Primary Care Provider [phone] Allergies No known active allergies Medications atorvastatin [...] Preservative Free 11/27/2017 Pneumococcal conjugate PCV20 ,polysaccharide [id number] conjugate, adjuvant, PF (Prevnar 20) 08/10/2022 Tetanus [...] Info) Description 03/10/2025 10:00 AM EST Appointment [facility] Radiation Oncology [address] [place] [address] - [place] [address] Jagjit Keen MD [address] [place] [address] Health Maintenance Due Date Last Done Comments [...] on 05/25/2023 by Jagjit Keen MD at [facility] CS-1 (REV 2) / / [id number] Description:Television Script Writer is [employer] Insurance Advance Directives * Full Code (Latest Code Status on File) Date Activated Date Inactivated Comments 05/25/2023 6:28 AM 05/25/2023 3:12 PM Care Teams Rouge Sifter Relationship Specialty Start Date End Date Zan Winchester PA [address] [place] [address] PCP - General 03/06/23
--- OUTSIDE RECORDS SUMMARY | 2025-01-14 18:05 | XMS_ITS | Encounter Summary ---
Author Organization [facility] Address [address] [place] [address] Care Team Providers Care Auctioneer Tobacco Name Role Phone Zan Winchester Primary Care Provider [phone] Encounter Details Date Type Department Care Team (Late st Contact Info) Description 05/25/2023 Education [facility] Radiation Oncology [address] [place] [address] Jagjit Keen MD [address] [place] [address] Social History Tobacco Use Types Packs/Day Years [...] Description 03/10/2025 10:00 AM EST Appointment [facility] Radiation Oncology [address] [place] [address] Jagjit Keen MD [address] [place] [address] documented as of this encounter Visit Diagnoses Not on filedocumented in this encounter Care Teams Auctioneer Tobacco Relationship Specialty Start Date End Date Zan Winchester PA [address] [place] [address] PCP - General 03/06/23 documented as of this encounter
--- OUTSIDE RECORDS SUMMARY | 2025-01-14 18:05 | XMS_ITS | Encounter Summary ---
Author Organization [facility] Address [address] [place] [address] Care Team Providers Care Dietary Assistant Name Role Phone Unavailable Primary Care Provider Unavailabl e Encounter Details Date Type Department Care Team (Late st Contact Info) Description 03/14/2023 Scanned Document [facility] Urologic Surgery [address] [place] [address] Pierre Nayak MD [address] [place] [address] [place] [address] Social History Tobacco Use Types Packs/Day Years [...]
--- OUTSIDE RECORDS SUMMARY | 2025-01-14 18:05 | XMS_ITS | Patient Health Record ---
Author Organization [facility] Address [address] [place] [id number] Care Team Providers Care Travel Registered Nurse Oncology Name Role Phone Junior Garcia Unavailable [phone] Reason For Referral No Information Plan Of Treatment No Information
--- OUTSIDE RECORDS SUMMARY | 2025-01-14 18:05 | XMS_ITS | Clinical Summary ---
Author Organization [facility] Address [address] [place] [address] Care Team Providers Care Premises Technician Name Role Phone Unavailable Primary Care [...]
== END 2025-01-14 14:38 | disposition home or self-care (01) ==
LOC: HO.HMGAL 14:37
PROVIDERS: PCP Physician Assistant; Visit Provider Registered Nurse Emergency
DX: J30.89 Other allergic rhinitis (principal)
CPT/HCPCS: 95117; 95165

== ENCOUNTER 2025-01-26 14:50 | Outpatient (AMB) | payer OTHER, SELFPAY ==
--- OUTSIDE RECORDS SUMMARY | 2025-01-26 19:38 | XMS_ITS | Encounter Summary ---
Author Organization [facility] Address [address] [place] [address] Care Team Providers Care Process Eng Name Role Phone Unavailable Primary Care Provider Unavailabl e Encounter Details Date Type Department Care Team (Late st Contact Info) Description 03/14/[address] [facility] [place] Urologic Surgery [address] [place] [address] Pierre Nayak MD [address] [place] [address] [place] [address] Social History Tobacco Use Types Packs/Day Years [...]
--- OUTSIDE RECORDS SUMMARY | 2025-01-26 19:38 | XMS_ITS | Clinical Summary ---
Author Organization [facility] Address [address] [place] [address] Care Team Providers Care Wildlife Conservationist Name Role Phone Unavailable Primary Care Provider [...]
--- OUTSIDE RECORDS SUMMARY | 2025-01-26 19:38 | XMS_ITS | Clinical Summary ---
Author Organization [facility] Address [address] [place] [address] Care Team Providers Care Landcare Officer Name Role Phone Zan Winchester Primary Care Provider [phone] Allergies No known active allergies Medications atorvastatin [...] Preservative Free 11/27/2017 Pneumococcal conjugate PCV20 ,polysaccharide [id number] conjugate, adjuvant, PF (Prevnar 20) 08/10/2022 Tetanus [...] Info) Description 03/10/2025 10:00 AM EST Appointment [facility] Radiation Oncology [address] [place] [address] - [place] [address] Jagjit Keen MD [address] [place] [address] Health Maintenance Due Date Last Done Comments [...] Completed 3 Medical Devices Implanted Type Area Glass Embosser Device Identifier Shelf Expiration Date Model / Serial / Lot Cs-1 Cesium 131 Seeds Implanted:Qty: 75 on 05/25/2023 by Jagjit Keen MD at [facility] CS-1 (REV 2) / / [id number] Description:Glass Embosser is [employer] Insurance Advance Directives * Full Code (Latest Code Status on File) Date Activated Date Inactivated Comments 05/25/2023 6:28 AM 05/25/2023 3:12 PM Care Teams Landcare Officer Relationship Specialty Start Date End Date Zan Winchester PA [address] [place] [address] PCP - General 03/06/23
--- OUTSIDE RECORDS SUMMARY | 2025-01-26 19:39 | XMS_ITS | Encounter Summary ---
Author Organization [facility] Address [address] [place] [address] Care Team Providers Care Fitter Up Name Role Phone Zan Winchester Primary Care Provider [phone] Encounter Details Date Type Department Care Team (Late st Contact Info) Description 05/25/2023 Education [facility] Radiation Oncology [address] [place] [address] Jagjit Keen MD [address] [place] [address] Social History Tobacco Use Types Packs/Day Years [...] PM EST documented as of this encounter Functional Status documented as of this encounter Plan of Treatment Upcoming Encounters Date Type Department Care Team (Late st Contact Info) Description 03/10/2025 10:00 AM EST Appointment [facility] Radiation Oncology [address] [place] [address] Jagjit Keen MD [address] [place] [address] documented as of this encounter Visit Diagnoses Not on filedocumented in this encounter Care Teams Fitter Up Relationship Specialty Start Date End Date Zan Winchester PA [address] [place] [address] PCP - General 03/06/23 documented as of this encounter
== END 2025-01-26 14:51 | disposition home or self-care (01) ==
LOC: HO.HMGAL 14:50
PROVIDERS: PCP Physician Assistant; Visit Provider Registered Nurse Emergency
DX: J30.89 Other allergic rhinitis (principal)
CPT/HCPCS: 95117; 95165

== ENCOUNTER 2025-02-03 06:03 | Outpatient (REF) | payer OTHER, SELFPAY ==
--- OUTSIDE RECORDS SUMMARY | 2025-02-03 06:07 | XMS_ITS | Clinical Summary ---
Author Organization [facility] Address [address] [place] [address] Care Team Providers Care Digital Product Manager Name Role Phone Unavailable Primary Care [...]
--- OUTSIDE RECORDS SUMMARY | 2025-02-03 06:07 | XMS_ITS | Encounter Summary ---
Author Organization [facility] Address [address] [place] [address] Care Team Providers Care Multi Disciplined Language Analyst Name Role Phone Zan Winchester Primary Care Provider [phone] Encounter Details Date Type Department Care Team (Late st Contact Info) Description 05/25/2023 Education [facility] Radiation Oncology [address] [place] [address] Jagjit Keen MD [address] [place] [address] Social History Tobacco Use Types Packs/Day Years [...] Info) Description 03/10/2025 10:00 AM EST Appointment [facility] Radiation Oncology [address] [place] [address] Jagjit Keen MD [address] [place] [address] documented as of this encounter Visit Diagnoses Not on filedocumented in this encounter Care Teams Multi Disciplined Language Analyst Relationship Specialty Start Date End Date Zan Winchester PA [address] [place] [address] PCP - General 03/06/23 documented as of this encounter
--- OUTSIDE RECORDS SUMMARY | 2025-02-03 06:07 | XMS_ITS | Clinical Summary ---
Author Organization [facility] Address [address] [place] [address] Care Team Providers Care Director Of Residential Services Name Role Phone Zan Winchester Primary Care Provider [phone] Allergies No known active allergies Medications atorvastatin [...] Preservative Free 11/27/2017 Pneumococcal conjugate PCV20 ,polysaccharide [id number] conjugate, adjuvant, PF (Prevnar 20) 08/10/2022 Tetanus [...] Info) Description 03/10/2025 10:00 AM EST Appointment [facility] Radiation Oncology [address] [place] [address] - [place] [address] Jagjit Keen MD [address] [place] [address] Health Maintenance Due Date Last Done Comments [...] Completed 3 Medical Devices Implanted Type Area Composition Floor Layer Device Identifier Shelf Expiration Date Model / Serial / Lot Cs-1 Cesium 131 Seeds Implanted:Qty: 75 on 05/25/2023 by Jagjit Keen MD at [facility] CS-1 (REV 2) / / [id number] Description:Composition Floor Layer is [employer] Insurance Advance Directives * Full Code (Latest Code Status on File) Date Activated Date Inactivated Comments 05/25/2023 6:28 AM 05/25/2023 3:12 PM Care Teams Director Of Residential Services Relationship Specialty Start Date End Date Zan Winchester PA [address] [place] [address] PCP - General 03/06/23
--- OUTSIDE RECORDS SUMMARY | 2025-02-03 06:07 | XMS_ITS | Encounter Summary ---
Author Organization [facility] Address [address] [place] [address] Care Team Providers Care Dining Room Supervisor Name Role Phone Unavailable Primary Care Provider Unavailabl e Encounter Details Date Type Department Care Team (Late st Contact Info) Description 03/14/2023 Scanned Document [facility] Urologic Surgery [address] [place] [address] Pierre Nayak MD [address] [place] [address] [place] [address] Social History Tobacco Use Types Packs/Day Years [...]
[2025-02-03 07:15] LABS: Hematocrit 44.3 % (42.0-52.0); Hemoglobin 15.4 g/dl (14.0-18.0); Mean Corpuscular HGB Conc 34.8 g/dl (31.0-36.0); Mean Corpuscular Hemoglobin 29.2 pg (27.0-33.0); Mean Corpuscular Volume 84.1 fL (80.0-98.0); NRBC Abs Auto 0.000 X10*3/uL (0.0-0.012); NRBC Pct Auto 0.0 /100WBC (0.0-0.2); Platelet Count 227 X10*3/uL (160-400); Red Blood Count 5.27 X10*6/uL (4.60-5.80); White Blood Count 4.9 X10*3/uL (4.8-10.8)
[2025-02-03 07:45] LABS: Alanine Aminotransferase 54 U/L (0-40); Albumin Level 4.7 g/dL (3.5-5.0); Alkaline Phosphatase 58 U/L (39-117); Anion Gap 11 (12-20); Aspartate Amino Transferase 48 U/L (5-37); Blood Urea Nitrogen 16 mg/dL (9-16); Calcium 9.5 mg/dL (8.4-10.2); Carbon Dioxide 27 mmol/L (22-29); Chloride 107 mmol/L (96-108); Cholesterol 239 mg/dL (<200); Estimated Glomerular Filt Rate > 60; HDL Cholesterol 40 mg/dL (>40); Potassium 3.9 mmol/L (3.3-5.1); Sodium 141 mmol/L (135-145); Total Protein 7.6 g/dL (6.5-8.0); Triglycerides 190 mg/dL (<150)
[2025-02-03 08:04] LABS: Prostate Specific Antigen 1.16 ng/mL (<0.05-4.0)
== END 2025-02-03 06:04 | disposition home or self-care (01) ==
LOC: HO.LAB 06:03
PROVIDERS: Absent Provider Physician Assistant; PCP Physician Assistant; Visit Provider Urology
DX: Z12.5 Encounter for screening for malignant neoplasm of prostate (principal); I10 Essential (primary) hypertension; C61 Malignant neoplasm of prostate; E78.2 Mixed hyperlipidemia
CPT/HCPCS: 36415; 80053; 80061; 84153; 85027

== ENCOUNTER 2025-02-04 09:33 | Outpatient (AMB) | payer OTHER, SELFPAY ==
--- OUTSIDE RECORDS SUMMARY | 2025-02-04 10:28 | XMS_ITS | Clinical Summary ---
Author Organization [facility] Address [address] [place] [address] Care Team Providers Care Lavender Farm Worker Name Role Phone Zan Winchester Primary Care Provider [phone] Allergies No known active allergies Medications atorvastatin [...] Preservative Free 11/27/2017 Pneumococcal conjugate PCV20 ,polysaccharide [id number] conjugate, adjuvant, PF (Prevnar 20) 08/10/2022 Tetanus [...] EST Appointment [facility] Radiation Oncology [address] [place] [address] - [place] [address] Jagjit Keen MD [address] [place] [address] Health Maintenance Due Date Last Done Comments [...] Completed 3 Medical Devices Implanted Type Area Sprayer Machine Device Identifier Shelf Expiration Date Model / Serial / Lot Cs-1 Cesium 131 Seeds Implanted:Qty: 75 on 05/25/2023 by Jagjit Keen MD at [facility] CS-1 (REV 2) / / [id number] Description:Sprayer Machine is [employer] Insurance Advance Directives * Full Code (Latest Code Status on File) Date Activated Date Inactivated Comments 05/25/2023 6:28 AM 05/25/2023 3:12 PM Care Teams Lavender Farm Worker Relationship Specialty Start Date End Date Zan Winchester PA [address] [place] [address] PCP - General 03/06/23
--- OUTSIDE RECORDS SUMMARY | 2025-02-04 10:28 | XMS_ITS | Clinical Summary ---
Author Organization [facility] Address [address] [place] [address] Care Team Providers Care Systems Protection Technician Name Role Phone Unavailable Primary Care [...]
--- OUTSIDE RECORDS SUMMARY | 2025-02-04 10:28 | XMS_ITS | Encounter Summary ---
Author Organization [facility] Address [address] [place] [address] Care Team Providers Care Cellar Packer Name Role Phone Zan Winchester Primary Care Provider [phone] Encounter Details Date Type Department Care Team (Late st Contact Info) Description 05/25/2023 Education [facility] Radiation Oncology [address] [place] [address] Jagjit Keen MD [address] [place] [address] Social History Tobacco Use Types Packs/Day Years [...] Info) Description 03/10/2025 10:00 AM EST Appointment [facility] Radiation Oncology [address] [place] [address] Jagjit Keen MD [address] [place] [address] documented as of this encounter Visit Diagnoses Not on filedocumented in this encounter Care Teams Cellar Packer Relationship Specialty Start Date End Date Zan Winchester PA [address] [place] [address] PCP - General 03/06/23 documented as of this encounter
--- OUTSIDE RECORDS SUMMARY | 2025-02-04 10:28 | XMS_ITS | Encounter Summary ---
Author Organization [facility] Address [address] [place] [address] Care Team Providers Care General Magistrate Name Role Phone Unavailable Primary Care Provider Unavailabl e Encounter Details Date Type Department Care Team (Late st Contact Info) Description 03/14/2023 Scanned Document [facility] Urologic Surgery [address] [place] [address] Pierre Nayak MD [address] [place] [address] [place] [address] Social History Tobacco Use Types Packs/Day Years [...]
== END 2025-02-04 09:33 | disposition home or self-care (01) ==
LOC: HO.HMGAL 09:33
PROVIDERS: PCP Physician Assistant; Visit Provider Registered Nurse Emergency
DX: J30.89 Other allergic rhinitis (principal)
CPT/HCPCS: 95117; 95165

== ENCOUNTER 2025-02-05 14:22 | Outpatient (AMB) | payer OTHER, SELFPAY ==
--- NOTE | 2025-02-05 14:33 | MHC.PC.OV ---
Vital Signs 02/05/25 14:35 Height 5 ft 10 in Weight 199 lb 8 oz BMI 28.6 BP 122/84 Blood Pressure Location Lt brachial Position Sitting Respiration 16 Pulse 103 H Pulse Source Pulse Oximeter Temp 97.3 F Temp Source Temporal Artery Scan Pulse Oximetry (%) 96 Oxygen Delivery Method Room Air Intake Visit Reasons: annual exam Cable Ferryboat Operator Required: No Accompanied by: Self / Same As Patient Allergies Seasonal Allergies Allergy (Mild, Verified 02/05/25 14:54) Runny Nose allergy shots Allergy (Intermediate, Uncoded 02/05/25 14:54) rash Medication List - Last Reconciled 02/05/25 by Zan Winchester PA-C atorvastatin 20 mg PO DAILY 90 days losartan-hydrochlorothiazide 50-12.5 mg 1 tab PO DAILY multivitamin 1 tab PO DAILY sertraline 50 mg PO DAILY sildenafil 100 mg PO DAILY PRN 30 days tadalafil 10 mg PO DAILY PRN 30 days valacyclovir 500 mg PO Q12H 7 days Tobacco use date assessed: 07/10/24 Dental Screening Dental Screen Date: 07/10/24 HPI annual exam HPI Details Patient is a 59-year-old male here today for routine annual physical Patient has a past medical history significant for hypertension, hyperlipidemia, insomnia, prostate cancer. -Concern--> has been having some epigastric burning and reflux, has tried omeprazole though has not been effective. He is interested in trying an alternative thus will try an H2 ajay. Advised on dietary modifications to reduce GERD symptoms. Prostate cancer:? Patient followed by urologist, PSA have dropped. He has done brachy therapy and now PSAs are much lower. He does report recently having some urinary burning. He did discuss this with his urologist whom seems to believe this was related to his radiation treatment. .. .. Hypertension: Blood pressure today office acceptable. Continues on losartan -hydrochlorothiazide with good effect. . Hyperlipidemia: Most recent lipid panel showing elevated total cholesterol and LDL. He does admit to dietary indiscretion as of late as he recently vacation in [facility] and recent holiday. Has been started on atorvastatin 20 mg without any side effect. Noted to have elevated liver enzymes. Labs--> noted elevated liver enzymes and most recent has. He did report drinking alcohol over the last few weeks, Will recheck his liver labs in a week Colon cancer screening: Up-to-date with colonoscopy-done in 2018 normal repeat 10 years Vaccine: Up-to-date with tetanus, COVID vaccine, Considering Shingrex, up-to-date with pneumonia vaccinex, Laboratory Tests 07/07/24 07/18/24 02/03/25 11:00 06:39 06:15 Hgb 15.4 AST 41 H 36 48 H ALT 45 H 54 H Cholesterol 239 H LDL Cholesterol, C alc 161 H PFSH Medical History Anxiety COVID-19 vaccine series completed Prostate cancer Sleep apnea Elevated cholesterol HTN (hypertension) Inguinal hernia Elevated PSA Erectile dysfunction due to arterial insufficiency Herpes simplex Surgical History History of right inguinal hernia repair Hx of prostate biopsy History of esophagogastroduodenoscopy (EGD) H/O colonoscopy History of excision of mass History of hip replacement Family History Father Prostate cancer Heart attack, Onset Age: 65 Paternal Uncle Prostate cancer Social History Housing: House Are you a primary careers counsellor to a significant other at home: No Alcohol intake: current Alcohol intake frequency: a few times a month Alcohol type: hard liquor Patient Tobacco Use Status: Never used Tobacco e-Cigarette/Vaping Use: Never Used Second Hand Smoke Exposure: No service: No Current occupational status: employed 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 Current occupational exposures/hazards: No Cognitive needs: No Hearing needs: No Vision needs: No Questionnaire Thrive Questionnaire Date Thrive assessed: 07/10/24 I am a: Patient What is your living situation today?: I have a steady place to live Within the past 12 months, did the food you bought not last and you didn't have the money to get more?: Never true Within the past 12 months, did you worry whether your food would run out before you got money to buy more?: Never true Do you have trouble paying for medicines?: No Do you have trouble getting transportation to medical appointments?: No Do you have trouble paying your heating and electricity bill?: No Do you have trouble taking care of your child, family member or friend?: No Do you have trouble with day-to-day activities such as bathing, preparing meals, shopping, managing finances, etc.?: No Are you currently unemployed and looking for a job?: No Are you interested in more education?: No Please select the resources that you would like help with: None Currently or been in a relationship where the following occur: No concerns reported THRIVE Score: 0 AUDIT C Alcohol Use Questionnaire (AUDIT-C) 1. How often do you have a drink containing alcohol?: 2-4 times a month 2. How many drinks containing alcohol do you have on a typical day when you are drinking?: 1 or 2 3. How often do you have six or more drinks on one occasion?: Never Total Score: 2 SABAS-7 AMB Questionnaire SABAS-7 Date SABAS - 7 assessed: 07/10/24 (Pt is on anti-anxiety medication ) Source: Developed by Drs. Junior Breen, Kisha Valverde, Herbie Vela and colleagues, with an educational deloris from [employer]. Review of Systems Const Denies body aches, Denies chills, Denies excessive sweating, Denies fatigue, Denies fever(s) and Denies headache(s) Eyes Denies blurry vision ENT Denies dysphagia, Denies vertigo, Denies dizziness, Denies headache(s), Denies hearing loss and Denies tinnitus Card Denies chest pain, Denies chest pain with activity, Denies syncope, Denies irregular heart rhythm and Denies dyspnea Resp Denies chest congestion, Denies cough, Denies hemoptysis, Denies dyspnea and Denies wheezing GI Denies abdominal pain, Denies melena, Denies hematochezia, Denies coffee ground emesis, Denies dysphagia, Reports dyspepsia, Reports heartburn, Denies diarrhea, Denies nausea and Denies vomiting Denies difficulty urinating, Reports dysuria, Denies urinary frequency, Denies urinary hesitancy and Denies urinary urgency Musc Denies arthralgias, Denies limited range of motion, Denies muscle cramps and Denies muscle weakness Skin/Breast Denies rash and Denies skin ulcer Neuro Denies Abnormal speech present, Denies confusion, Denies vertigo, Denies dizziness, Denies syncope, Denies headache(s), Denies memory loss and Denies seizure-like activity Psych Denies anxiety, Denies confusion, Denies depression, Denies memory loss, Denies panic attacks and Denies paranoia Endo Denies excessive sweating, Denies fatigue, Denies flushing, Denies polydipsia and Denies polyuria Aller/Immun Denies wheezing Physical exam (Primary Care) Vital Signs: Last Vital Signs Temp 97.3 F 02/05/25 14:35 Pulse 103 H 02/05/25 14:35 Resp 16 02/05/25 14:35 BP 122/84 02/05/25 14:35 Pulse Ox 96 02/05/25 14:35 Oxygen Delivery Method Room Air 02/05/25 14:35 BMI result Body Mass Index 28.6 Tobacco/Smoking Status: Tobacco use Status Tobacco use date assessed 07/10/24 02/05/25 14:41 Patient Tobacco Use Status Never used Tobacco 02/05/25 14:41 e-Cigarette/Vaping Use Never Used 02/05/25 14:41 Thrive Assessment: Date of Thrive Assessment Date Thrive assessed 07/10/24 02/05/25 14:41 Currently or been in a relationship where the following occur: No concerns reported Const General: cooperative, comfortable, no acute distress, alert and awake; No confusion Orientation/consciousness: oriented to person, oriented to place, patient oriented x3 and No confusion HENMT Head: Yes normocephalic Ears: external ears normal and TM's normal bilaterally Face and sinus: No sinus tenderness Mouth: Normal oral and palatal mucosa present and tongue normal Teeth and gingiva: dentition normal and gingiva normal Throat: Yes posterior oropharynx normal, Yes tonsils normal and Yes uvula midline Eyes Conjunctivae: conjunctivae normal Sclerae: sclerae normal Pupils: Equal, round and reactive pupils present EOM: EOMs intact bilaterally Direct Ophthalmoscopy: No no photophobia Neck Neck: Yes no lymphadenopathy, No tender and Yes no JVD Thyroid: Thyroid normal Carotids: no bruits Chest Chest palpation & inspection: no tenderness Resp Effort & Inspection: normal respiratory effort, no audible wheezes, not labored and no stridor Auscultation: no crackles, no rales, no rhonchi and no wheezes Cardio Jugular venous distension: no JVD Rate: regular rate, not bradycardic and not tachycardic Rhythm: regular rhythm Bruits: no carotid bruits Peripheral pulses: Peripheral pulses 2+ throughout GI Inspection: Yes normal to inspection, No abdominal wall ecchymosis and No visible herniation Palpation (GI): Soft to palpation, nontender, no guarding, not rigid and No hepatosplenomegaly present Auscultation: normoactive bowel sounds General: Yes no CVA tenderness Back/Spine/Pelvis Back: no CVA tenderness and No back tenderness Cervical Spine: cervical ROM normal Thoracic/Lumbar Spine: thoracic and lumbar spine normal to inspection, straight leg raise negative bilaterally, No thoraco-lumbar ROM limited and No lumbar spinal tenderness Skin Lesions: no lesions Rashes: no rashes Wounds: no wounds Neuro General: oriented to person, oriented to place, patient oriented x3, CN's II-XI intact bilaterally and No confusion Cranial nerves: Yes Equal, round and reactive pupils present and Yes Normal accommodation reflex present Cognition (Neuro): normal cognition Speech: No Abnormal speech present Gait exam (Neuro): Normal gait present Motor exam (neuro): 5/5 motor strength present throughout Extrem Right upper extremity: full ROM; no cyanosis Left upper extremity: full ROM; no cyanosis Right lower extremity: no edema Left lower extremity: no edema Psych Appearance: grossly normal Mental Status: mental status grossly normal Affect: normal affect Attitude: cooperative Thought process: Normal thought process present Coding Level of Care Code Est Pt Prev Care 40-64y(66911) Diagnoses Annual physical exam Z00.00 Liver enzyme elevation R74.8 Prostate cancer C61 Primary hypertension I10 Hypertension type: primary hypertension Mixed hyperlipidemia E78.2 Hyperlipidemia type: mixed hyperlipidemia Dysuria R30.0 Gastroesophageal reflux disease without esophagitis K21.9 Esophagitis presence: without esophagitis Assessment & Plan Assessment & Plan (1) Annual physical exam: Code(s): Z00.00 - Encounter for general adult medical examination without abnormal findings Category: Medical Plan: As per HPI (2) Liver enzyme elevation: Code(s): R74.8 - Abnormal levels of other serum enzymes Category: Medical Plan: Noted elevated liver enzymes and most recent labs. He does admit to drinking alcohol though we can before his labs were taken. Will recheck his liver labs in 1 week. (3) Prostate cancer: Comment: November 2018 Uziel 3 + 3 low-grade, low volume disease Active surveillance repeat biopsy 04/26 Code(s): C61 - Malignant neoplasm of prostate Category: Medical Plan: Patient followed by Urology and Radiation Oncology. Did undergo treatment with brachytherapy. Most recent PSAs has been stable. Of note as above has been having some dysuria as of late. Will send for urinalysis and urine culture to eval for any infection.. (4) HTN (hypertension): Code(s): I10 - Essential (primary) hypertension Category: Medical Qualifiers: Hypertension type: primary hypertension Qualified Code(s): I10 - Essential (primary) hypertension Plan: Patient's blood pressure acceptable today in office. Will continue current doses of antihypertensive medication. Goal blood pressures to remain below 140/90 (5) Hyperlipidemia: Code(s): E78.5 - Hyperlipidemia, unspecified Category: Medical Qualifiers: Hyperlipidemia type: mixed hyperlipidemia Qualified Code(s): E78.2 - Mixed hyperlipidemia Plan: Patient's most recent lipid panel showing elevated total cholesterol and LDL, he reports recently dietary indiscretion while vacationing in [facility]. Will get back on a low-cholesterol diet. He continues on statin therapy without side effect. Goal LDL is to remain below 130 (6) Dysuria: Code(s): R30.0 - Dysuria Category: Medical Plan: As above (7) GERD (gastroesophageal reflux disease): Code(s): K21.9 - Gastro-esophageal reflux disease without esophagitis Category: Medical Qualifiers: Esophagitis presence: without esophagitis Qualified Code(s): K21.9 - Gastro-esophageal reflux disease without esophagitis Plan: Patient's signs and symptoms most consistent with a gastric reflux. Will supply patient with famotidine to use on an empty stomach in the mornings to help reduce his gastritis. Advised on dietary modifications to help reduce his gastric reflux type symptoms. Orders: Orders UA CC w/rflx Micro + Cult 02/05/25 R30.0 - Dysuria Urine Culture 02/05/25 R30.0 - Dysuria Microalbumin, Random (w Creat) 02/05/25 I10 - Essential (primary) hypertension Comprehensive [place]. Panel Fast 02/05/25 I10 - Essential (primary) hypertension Complete Blood Count no Diff 02/05/25 I10 - Essential (primary) hypertension Lipid Panel 02/05/25 E78.2 - Mixed hyperlipidemia Medications: New nitrofurantoin monohyd/m-cryst 100 mg (Macrobid) must administer with a meal/food 100 mg PO Q12H 10 caps 0RF 5 days R30.0 - Dysuria famotidine 20 mg PO DAILY 30 tabs 1RF 30 days K21.9 - Gastro-esophageal reflux disease without esophagitis
[2025-02-05 14:35] VITALS: BP 122/84; PULSE 103; RESP 16; TEMP 36.3; O2SAT 96; BMI 28.6
--- OUTSIDE RECORDS SUMMARY | 2025-02-05 19:54 | XMS_ITS | Clinical Summary ---
Author Organization [facility] Address [address] [place] [address] Care Team Providers Care Cable Supervisor Name Role Phone Zan Winchester Primary Care Provider [phone] Allergies No known active allergies Medications atorvastatin [...] Preservative Free 11/27/2017 Pneumococcal conjugate PCV20 ,polysaccharide [id number] conjugate, adjuvant, PF (Prevnar 20) 08/10/2022 Tetanus [...] Info) Description 03/10/2025 10:00 AM EST Appointment [facility] Radiation Oncology [address] [place] [address] - [place] [address] Jagjit Keen MD [address] [place] [phone] Health Maintenance Due Date Last Done Comments [...] Completed 3 Medical Devices Implanted Type Area Loan Servicing Officer Device Identifier Shelf Expiration Date Model / Serial / Lot Cs-1 Cesium 131 Seeds Implanted:Qty: 75 on 05/25/2023 by Jagjit Keen MD at [facility] CS-1 (REV 2) / / [id number] Description:Loan Servicing Officer is [employer] Insurance Advance Directives * Full Code (Latest Code Status on File) Date Activated Date Inactivated Comments 05/25/2023 6:28 AM 05/25/2023 3:12 PM Care Teams Cable Supervisor Relationship Specialty Start Date End Date Zan Winchester PA [address] [place] [phone] PCP - General 03/06/23
--- OUTSIDE RECORDS SUMMARY | 2025-02-05 19:54 | XMS_ITS | Clinical Summary ---
Author Organization [facility] Address [address] [place] [address] Care Team Providers Care Mold Filler Plastic Dolls Name Role Phone Unavailable Primary Care Provider [...]
--- OUTSIDE RECORDS SUMMARY | 2025-02-05 19:55 | XMS_ITS | Patient Health Record ---
Author Organization [facility] Address [address] [place] [phone] Care Team Providers Care Psychiatric Nurse Name Role Phone Junior Garcia Unavailable [phone] Reason For Referral No Information Plan Of Treatment No Information
--- OUTSIDE RECORDS SUMMARY | 2025-02-05 19:55 | XMS_ITS | Encounter Summary ---
Author Organization [facility] Address [address] [place] [address] Care Team Providers Care Volunteer Firefighter Name Role Phone Unavailable Primary Care Provider Unavailabl e Encounter Details Date Type Department Care Team (Late st Contact Info) Description 03/14/2023 Scanned Document [facility] Urologic Surgery [address] [place] [address] Pierre Nayak MD [address] [place] [address] [place] [address] Social History Tobacco Use Types Packs/Day Years [...]
--- OUTSIDE RECORDS SUMMARY | 2025-02-05 19:55 | XMS_ITS | Encounter Summary ---
Author Organization [facility] Address [address] [place] [address] Care Team Providers Care Final Inspector Motorcyles Name Role Phone Zan Winchester Primary Care Provider [phone] Encounter Details Date Type Department Care Team (Late st Contact Info) Description 05/25/2023 Education [facility] Radiation Oncology [address] [place] [phone] Jagjit Keen MD [address] [place] [address] Social History Tobacco Use Types Packs/Day Years [...] Info) Description 03/10/2025 10:00 AM EST Appointment [facility] Radiation Oncology [address] [place] [address] Jagjit Keen MD [address] [place] [phone] documented as of this encounter Visit Diagnoses Not on filedocumented in this encounter Care Teams Final Inspector Motorcyles Relationship Specialty Start Date End Date Zan Winchester PA [address] [place] [phone] PCP - General 03/06/23 documented as of this encounter
== END 2025-02-05 15:17 | disposition home or self-care (01) ==
LOC: HO.HMCH 14:23
PROVIDERS: PCP Physician Assistant; Visit Provider Physician Assistant
DX: Z00.00 Encounter for general adult medical examination without abnormal findings (principal); R74.8 Abnormal levels of other serum enzymes; C61 Malignant neoplasm of prostate; I10 Essential (primary) hypertension; E78.2 Mixed hyperlipidemia; R30.0 Dysuria; K21.9 Gastro-esophageal reflux disease without esophagitis

== ENCOUNTER 2025-02-11 14:38 | Outpatient (AMB) | payer OTHER, SELFPAY ==
--- OUTSIDE RECORDS SUMMARY | 2025-02-11 22:59 | XMS_ITS | Encounter Summary ---
Author Organization [facility] Address [address] [place] [address] Care Team Providers Care Site Project Manager Name Role Phone Zan Winchester Primary Care Provider [phone] Encounter Details Date Type Department Care Team (Late st Contact Info) Description 05/25/2023 Education [facility] Radiation Oncology [address] [place] [phone] Jagjit Keen MD [address] [place] [address] Social History Tobacco Use Types Packs/Day Years [...] Info) Description 03/10/2025 10:00 AM EST Appointment [facility] Radiation Oncology [address] [place] [address] Jagjit Keen MD [address] [place] [phone] documented as of this encounter Visit Diagnoses Not on filedocumented in this encounter Care Teams Site Project Manager Relationship Specialty Start Date End Date Zan Winchester PA [address] [place] [phone] PCP - General 03/06/23 documented as of this encounter
--- OUTSIDE RECORDS SUMMARY | 2025-02-11 22:59 | XMS_ITS | Clinical Summary ---
Author Organization [facility] Address [address] [place] [address] Care Team Providers Care Usps Letter Carrier Name Role Phone Unavailable Primary Care Provider [...]
--- OUTSIDE RECORDS SUMMARY | 2025-02-11 22:59 | XMS_ITS | Patient Health Record ---
Author Organization [facility] Address [address] [place] [address] Care Team Providers Care Board Machine Set Up Operator Name Role Phone Junior Garcia Unavailable [phone] Reason For Referral No Information Plan Of Treatment No Information
--- OUTSIDE RECORDS SUMMARY | 2025-02-11 22:59 | XMS_ITS | Encounter Summary ---
Author Organization [facility] Address [address] [place] [address] Care Team Providers Care Champagne Maker Name Role Phone Unavailable Primary Care Provider Unavailabl e Encounter Details Date Type Department Care Team (Late st Contact Info) Description 03/14/2023 Scanned Document [facility] Urologic Surgery [address] [place] [address] Pierre Nayak MD [address] [place] [address] [place] [address] Social History Tobacco Use Types Packs/Day Years [...]
--- OUTSIDE RECORDS SUMMARY | 2025-02-11 22:59 | XMS_ITS | Clinical Summary ---
Author Organization [facility] Address [address] [place] [address] Care Team Providers Care Veneer Press Operator Name Role Phone Zan Winchester Primary Care Provider [phone] Allergies No known active allergies Medications atorvastatin [...] Preservative Free 11/27/2017 Pneumococcal conjugate PCV20 ,polysaccharide [id number] conjugate, adjuvant, PF (Prevnar 20) 08/10/2022 Tetanus [...] Info) Description 03/10/2025 10:00 AM EST Appointment [facility] Radiation Oncology [address] [place] [address] - First [place] [address] Jagjit Keen MD [address] [place] [address] Health Maintenance Due Date Last Done Comments [...] Completed 3 Medical Devices Implanted Type Area Lithograph Operator Device Identifier Shelf Expiration Date Model / Serial / Lot Cs-1 Cesium 131 Seeds Implanted:Qty: 75 on 05/25/2023 by Jagjit Keen MD at [facility] CS-1 (REV 2) / / [id number] Description:Lithograph Operator is [employer] Insurance Advance Directives * Full Code (Latest Code Status on File) Date Activated Date Inactivated Comments 05/25/2023 6:28 AM 05/25/2023 3:12 PM Care Teams Veneer Press Operator Relationship Specialty Start Date End Date Zan Winchester PA [address] [place] [address] PCP - General 03/06/23
== END 2025-02-11 14:39 | disposition home or self-care (01) ==
LOC: HO.HMGAL 14:38
PROVIDERS: PCP Physician Assistant; Visit Provider Registered Nurse Emergency
DX: J30.89 Other allergic rhinitis (principal)
CPT/HCPCS: 95117; 95165

== ENCOUNTER 2025-02-16 11:33 | Outpatient (AMB) | payer OTHER, SELFPAY | END 2025-02-16 11:34 | disposition home or self-care (01) | LOC: HO.HMGAL 11:33 | PROVIDERS: PCP Physician Assistant; Visit Provider Registered Nurse Emergency | DX: J30.89 Other allergic rhinitis (principal) | CPT/HCPCS: 95117; 95165 ==

== ENCOUNTER 2025-03-04 10:47 | Outpatient (AMB) | payer OTHER, SELFPAY ==
--- OUTSIDE RECORDS SUMMARY | 2025-03-04 12:10 | XMS_ITS | Encounter Summary ---
Author Organization [facility] Address [address] [place] [address] Care Team Providers Care School Speech Language Pathologist Name Role Phone Unavailable Primary Care Provider Unavailabl e Encounter Details Date Type Department Care Team (Late st Contact Info) Description 03/14/2023 Scanned Document [facility] Urologic Surgery [address] [place] [address] Pierre Nayak MD [address] [place] [address] [place] [address] Social History Tobacco Use Types Packs/Day Years [...]
--- OUTSIDE RECORDS SUMMARY | 2025-03-04 12:10 | XMS_ITS | Encounter Summary ---
Author Organization [facility] Address [address] [place] [address] Care Team Providers Care Director Communications Name Role Phone Zan Winchester Primary Care Provider Encounter Details Date Type Department Care Team (Late st Contact Info) Description 05/25/2023 Education [facility] Radiation Oncology [address] [place] [address] Jagjit Keen MD [address] [place] [address] Social History Tobacco Use Types Packs/Day Years [...] Info) Description 03/10/2025 10:00 AM EST Appointment [facility] Radiation Oncology [address] [place] [address] Jagjit Keen MD [address] [place] [address] documented as of this encounter Visit Diagnoses Not on filedocumented in this encounter Care Teams Director Communications Relationship Specialty Start Date End Date Zan Winchester PA [address] [place] [address] PCP - General 03/06/23 documented as of this encounter
--- OUTSIDE RECORDS SUMMARY | 2025-03-04 12:10 | XMS_ITS | Clinical Summary ---
Author Organization [facility] Address [address] [place] [address] Care Team Providers Care Patents Examiner Name Role Phone Zan Winchester Primary Care Provider [phone] Allergies No known active allergies Medications atorvastatin [...] Preservative Free 11/27/2017 Pneumococcal conjugate PCV20 ,polysaccharide [id number] conjugate, adjuvant, PF (Prevnar 20) 08/10/2022 Tetanus [...] Info) Description 03/10/2025 10:00 AM EST Appointment [facility] Radiation Oncology [address] [place] [address] - [place] [address] Jagjit Keen MD [address] [place] [address] Health Maintenance Due Date Last Done Comments [...] Completed 3 Medical Devices Implanted Type Area Creative Intern Device Identifier Shelf Expiration Date Model / Serial / Lot Cs-1 Cesium 131 Seeds Implanted:Qty: 75 on 05/25/2023 by Jagjit Keen MD at [facility] CS-1 (REV 2) / / [id number] Description:Creative Intern is [employer] Insurance Advance Directives * Full Code (Latest Code Status on File) Date Activated Date Inactivated Comments 05/25/2023 6:28 AM 05/25/2023 3:12 PM Care Teams Patents Examiner Relationship Specialty Start Date End Date Zan Winchester PA [address] [place] [phone] PCP - General 03/06/23
--- OUTSIDE RECORDS SUMMARY | 2025-03-04 12:10 | XMS_ITS | Patient Health Record ---
Author Organization [facility] Address [address] [place] [id number] Care Team Providers Care Microsoft Bi Consultant Name Role Phone Junior Garcia Unavailable [phone] Reason For Referral No Information Plan Of Treatment No Information
--- OUTSIDE RECORDS SUMMARY | 2025-03-04 12:10 | XMS_ITS | Clinical Summary ---
Author Organization [facility] Address [address] [place] [address] Care Team Providers Care Adult Literacy Instructor Name Role Phone Unavailable Primary Care Provider [...]
== END 2025-03-04 10:48 | disposition home or self-care (01) ==
LOC: HO.HMGAL 10:47
PROVIDERS: PCP Physician Assistant; Visit Provider Registered Nurse Emergency
DX: J30.89 Other allergic rhinitis (principal)
CPT/HCPCS: 95117; 95165